=== PATIENT | female | born 1970 | race Caucasian/White ===

== ENCOUNTER 2017-02-05 21:49 | Emergency (ER) | payer MEDICARE, MEDICAID ==
[~2017-02-05] VITALS: Ht 154.9 cm; Wt 87.0 kg
[~2017-02-05 21:49] MED LIST: AMLO2.5T PO; FLUT9.9S NS; GABA-502 PO; LACT1CAP65 PO; OMEP40CA36 PO; OXYC5TAB72 PO; SEVE800T7 PO; SIME180C42 PO; VENL150C98 PO; ZOF8 PO
[2017-02-05 22:27] VITALS: BP 99/73; PULSE 117; RESP 20; O2SAT 98
--- NOTE | 2017-02-05 22:36 | ED.REPORT ---
HPI-Extremity Problem Lower Date of Service Feb 05, 2017 ED Provider: Mark Maldonado MD A 46 year old female with a history of hypertension and renal failure on dialysis presents to the ED complaining of right ankle pain. The pt was leaving her dialysis appointment today when her ankle "gave out" and she fell. She heard a loud pop at that time, and has been unable to walk on the ankle since due to the pain. Nursing Notes Stated Complaint: RIGHT ANKLE TWIST Chief Complaint: Extremity Trauma Nursing Notes Reviewed: Yes Allergies: Coded Allergies: vancomycin (Verified Allergy, Intermediate, itch, 02/05/17) Scheduled Amlodipine (Amlodipine) 2.5 Mg Tablet 2.5 MG PO DAILY Gabapentin (Gabapentin) 300 Mg Capsule 300 MG PO HS Omeprazole (Omeprazole) 40 Mg Capsule.dr 40 MG PO DAILY Sevelamer Carbonate (Renvela) 800 Mg Tablet 2,400 MG PO TIDWM and snacks Venlafaxine ER (Venlafaxine ER) 150 Mg Cap.er.24h 150 MG PO DAILY Scheduled PRN Fluticasone Propionate (Flonase Allergy Relief) 50 Mcg/Actuation [place].susp 9.9 ML NS DAILY PRN PRN prn Ondansetron (Zofran) 8 Mg Tablet 8 MG PO Q8H PRN PRN For Nausea Simethicone (Simethicone) 180 Mg Capsule 180 MG PO QID PRN PRN gas oxyCODONE (oxyCODONE) 5 Mg Tablet 10-15 MG PO Q4H PRN PRN For Pain Miscellaneous Medications Lactobacillus Acidophilus (Probiotic) 1 Each Capsule 1 EACH PO General Time Seen by MD: 22:34 Chief Complaint Ankle injury right Hx Obtained From: Patient Arrived By: Walk-in Onset Occurred: 16 - 30 minutes ago Symptom Duration: Since onset Recent Healthcare: Recent doctor visit, Recent hospitalization Similar Sx Previous: No Past Medical History Past Medical History Notes: Admit for sepsis November 2014 (all cultures negative) Barrel Burner: Dr. Virgen PCP: Renea Wilhelm Past Medical History HTN Polycystic kidney Migraines Hx of cerebral aneurysms bilateral renal failure on dialysis History of obstructive sleep apnea hernia Reports: Hypertension Past Surgical History Tubal ligation Uterine ablation Bladder sling Left AV fistula Bilatereal nephrectomys Reports: Tubal ligation Family History Father, at 52 from cerebral aneurysm Mother is 67 with CAD Smoking History Current Every Day Smoker Social History Alcohol Use: Denies alcohol use Drug Use: Denies drug use Other Social History: Local resident Occupation On disability Ambulatory Status Independent Review of Systems Constitutional: Denies: Fever Musculoskeletal: Reports: Extremity pain, Joint pain, Denies: Back pain, Neck pain Skin: Denies Rash Neurologic: Denies: Headache Complete sys rev & neg: except as marked. Respiratory: Denies: Non-productive cough, Shortness of breath Cardiovascular: Denies: Chest pain GI: Denies: Abdominal pain Physical Exam Initial Vital Signs Vital Signs (First) Date Time Temp Pulse Resp B/P Pulse Ox O2 Delivery O2 Flow Rate FiO2 02/05/17 22:27 37 117 20 99/73 98 Room Air Initial VS: Reviewed Lower Extremity / Pelvis / MS: Atraumatic, Full range of motion Ankle / Foot: No deformity swelling and tenderness of right lateral ankle, inferior to lateral malleolus no obvious deformity or focal bone tenderness good DP and PT pulses neurovascularly intact General/Constitutional: Awake, Alert Respiratory / Chest: Atraumatic, Breath sounds NL, Breath sounds = bilat, No respiratory distress Cardiovascular: Heart rate NL, Regular rhythm, Heart sounds NL, No gallop, No murmurs, No rubs Skin: Atraumatic, Color NL, No rash, Warm, Dry Neurologic: Oriented X3, Speech NL, No motor deficits, No sensory deficits Head / Eyes: Atraumatic, Normocephalic, PERRL, EOMI ENT: Atraumatic, Airway patent, Mucous membranes moist Neck: Atraumatic, Supple, Full range of motion Abdomen: Atraumatic, Soft, Non-tender, No distention Back: Atraumatic, Full range of motion Upper Extremity / MS: Atraumatic, Full range of motion dialysis fistula on left upper arm no redness, swelling, warmth, or other signs of infection Psychiatric: Affect NL, Mood NL Interpretation & Diagnostics X-Ray Interpretation Xray Interpretation: no acute findings X-Ray Ordered: Ankle right Interpretation / Wet Read by: Wet read ED physician Xray Interpretation: no acute findings X-Ray Ordered: Foot right Interpretation / Wet Read by: Wet read ED physician Re-Eval/Medical Decision Med Decision/Clinical Course Patient presents with right ankle pain after actually inverting her right ankle. Examination reveals that the patient is neurovascularly intact in the affected extremity. Tenderness and swelling is present about the distribution of the talofibular ligament. Examination not suggestive of acute fracture. Plain films of the right ankle and foot reviewed by myself demonstrate no convincing fracture. Patient given Tylenol for pain and ice pack applied. Air cast and splint placed. Patient to follow-up with primary care physician. Follow-up and return precautions were reviewed in detail including gentle range of motion exercises and the patient was discharged in good condition. Source of Hx: Old records Re-Evaluation/Progress : Time of Eval: 22:34 Patient Status: Condition improved Re-Evaluation/Progress Note: Pt informed of her radiology results, diagnosis, and the plan for discharge during the initial interview. The pt understands and agrees with the plan. All questions are addressed at this time. Counseled Regarding: Diagnosis, Lab results, Need for follow-up, When/why to return to ED Discharge & Departure Impression: Primary Impression: Right ankle sprain Encounter type: initial encounter Involved ligament of ankle: unspecified ligament Qualified Code: S93.401A - Sprain of unspecified ligament of right ankle, initial encounter Additional Impression: Right ankle pain Chronicity: acute Qualified Code: M25.571 - Pain in right ankle and joints of right foot Disposition: Home Discharge Condition All VS Reviewed: Yes Condition: Stable Patient Instructions: Crutch Instructions (ED) Additional Instructions: Elevate the leg. Use ice and Tylenol as directed for pain management. Use the crutches as instructed and wear the air cast. Call your primary care physician in the morning to arrange follow up within the next week. Return to the emergency department if you develop any new or worsening symptoms including worsening pain, numbness, tingling, or swelling. Referrals: Stacie Wilhelm PA-C (PCP) Scribe Attestation Portions of this note were transcribed by Isabela Locke. I, Dr. Maldonado personally performed the history, physical exam and medical decision-making; I reviewed and confirmed the accuracy of the information in the transcribed note. Signed by: Monica Agarwal, 02/05/2017 and [id number]. copies to: Stacie Wilhelm PA-C, Beck O MD Feb 05, 2017 22:36 ISABELA LOCKE Feb 05, 2017 23:26
[2017-02-06 00:03] VITALS: BP 105/75; PULSE 117; RESP 16; O2SAT 98
--- NOTE | 2017-02-06 09:47 | DRSVH ---
PROCEDURE: X-RAY RIGHT FOOT COMPLETE, MINIMUM THREE VIEWS ([id number]) INDICATIONS: inj TECHNIQUE: 3 views of the foot were acquired. COMPARISON: None. FINDINGS: Bones: No fractures or dislocations. No suspicious bony lesions. Soft tissues: No tibiotalar joint effusion. Achilles tendon appears normal. IMPRESSION: No displaced fracture seen. If there is continued pain, followup exam or additional merissa ging such as MRI or CT could be performed for further assessment. Dictated by: Zhou No Oswaldo Interpreted: Sharon Guerrero MD on 02/06/2017 at 9:46 Transcribed by: ARANZA on 02/06/2017 at 9:47 Approved by: Sharon Guerrero M.D. on 02/06/2017 at 21:12
--- NOTE | 2017-02-06 09:48 | DRSVH ---
PROCEDURE: X-RAY RIGHT ANKLE, MINIMUM THREE VIEWS ([id number]) INDICATIONS: injury TECHNIQUE: 3 views of the ankle were acquired. COMPARISON: None. FINDINGS: Bones: Minimally displaced lateral malleolar fracture present with fracture line extending to the art icular surface. Ankle mortise is normally aligned. No suspicious bony lesions. Soft tissues: No tibiotalar joint effusion. Achilles tendon appears normal. Lateral malleolar soft tissue swelling. IMPRESSION: Lateral malleolar fracture. Dictated by: Zhou No Oswaldo Interpreted: Sharon Guerrero MD on 02/06/2017 at 9:47 Transcribed by: ARANZA on 02/06/2017 at 9:48 Approved by: Sharon Guerrero M.D. on 02/06/2017 at 21:12
[2017-04-09] MEDS ORDERED: ZOF8 PO (10:24)
[2017-04-09] MEDS ORDERED: CINA30TA PO (10:24)
[2017-04-09] MEDS ORDERED: FLUT16SP NS (10:24)
[2017-04-09] MEDS ORDERED: SEVE800T7 PO (10:24)
[2017-04-09] MEDS ORDERED: GABA-502 PO (10:24)
[2017-04-09] MEDS ORDERED: OXYC5TAB72 PO (10:24)
[2017-04-09] MEDS ORDERED: OMEP20CA11 PO (10:24)
[2017-04-09] MEDS ORDERED: BUPR150T8 PO (10:24)
[2017-04-09] MEDS ORDERED: VENL150C98 PO (10:24)
== END 2017-02-06 | disposition home or self-care (01) ==
LOC: SED 21:49
DX: S93.401A Sprain of unspecified ligament of right ankle, initial encounter (principal); X50.1XXA Overexertion from prolonged static or awkward postures, initial encounter; Y93.89 Activity, other specified; Y92.89 Other specified places as the place of occurrence of the external cause; Y99.8 Other external cause status; I10 Essential (primary) hypertension; N19 Unspecified kidney failure; F17.200 Nicotine dependence, unspecified, uncomplicated; Z99.2 Dependence on renal dialysis; Z88.1 Allergy status to other antibiotic agents

== ENCOUNTER 2017-04-15 07:27 | Inpatient (IN) | payer MEDICARE, MEDICAID ==
[2017-04-15] VITALS (16 sets, daily range): BP systolic 91–122; BP diastolic 54–86; PULSE 50–124; RESP 15–29; O2SAT 91–99
[~2017-04-15] VITALS: Ht 154.9 cm; Wt 97.4 kg
[~2017-04-15 07:27] MED LIST changes: -AMLO2.5T PO; +BUPR150T8 PO; +CINA30TA PO; +Dexamethasone 4 mg/mL Inj IVPUSH PRN; +EPHEDrine Sulfate 50 mg/mL Inj IVPUSH PRN; +FLUT16SP NS; -FLUT9.9S NS; +HYDROmorphone 1 mg/mL Inj IVPUSH PRN; -LACT1CAP65 PO; +Labetalol 5 mg/mL 4 mL Inj IV PRN; +Lactated Ringer's 1,000 ML IV SCH; +Lactated Ringer's 500 ML IV PRN; +MetoCLOpramide 5 mg/mL 2 mL Inj IVPUSH PRN; +OMEP20CA11 PO; -OMEP40CA36 PO; +Ondansetron 2 mg/mL 2 mL Inj IVPUSH PRN; +Phenylephrine 10,000 mCg/mL Inj IVPUSH PRN; -SIME180C42 PO; +hydrALAZINE 20 mg/mL Inj IVPUSH PRN
[2017-04-15] MEDS ORDERED: 0.9% Sodium Chloride 500 ML IV ONE (07:42)
[2017-04-15] MEDS: CeFAZolin Inj 2 GM in IV Premix 1 EACH IV ONE ×2 (10:13→10:25)
[2017-04-15] MEDS ORDERED: Heparin 5,000 Unit/mL Inj ONE (10:24)
[2017-04-15] MEDS ORDERED: Heparin 5,000 Unit/mL Inj SUBQ ONE (10:31)
[2017-04-15] MEDS ORDERED: fentaNYL 2 mCg/mL-Bupivicaine 0.125% 100 mL Premix EPIDURAL ONE (10:32)
[2017-04-15] MEDS ORDERED: Atropine 1 mg/mL Inj IVPUSH PRN (11:00)
[2017-04-15] MEDS ORDERED: EPHEDrine Sulfate 50 mg/mL Inj IV PRN (11:00)
[2017-04-15] MEDS ORDERED: Ondansetron 2 mg/mL 2 mL Inj IVPUSH PRN ×2 (11:00→14:50)
[2017-04-15] MEDS ORDERED: MetoCLOpramide 5 mg/mL 2 mL Inj IVPUSH PRN (14:50)
[2017-04-15] MEDS: fentaNYL-PF 50 mCg/mL 2 mL Inj IVPUSH PRN ×4 (14:55→19:36)
[2017-04-15] MEDS ORDERED: Fluticasone 0.05% 15 Spray/2 Gm 16 Gm Nasal Spray NASAL PRN (15:00)
[2017-04-15 15:45] LABS: BASOPHILS % (AUTO) 0.1 % (0-3); EOSINOPHILS % (AUTO) 0.1 % (0-5); MONOCYTES % (AUTO) 1.7 % (4-12); Mean Corpuscular Hemoglobin 33.7 pg (27.0-35.0); NEUTROPHILS % (AUTO) 91.7 % (40-74); Platelet Count 229 bil/L (150-400)
--- NOTE | 2017-04-15 16:06 | OP ---
[address] [address] OPERATIVE REPORT PATIENT: ALESHIA SOLORIO : 1970 MR#: [id number] ADMIT: 04/15/2017 JOB ID: [id number] DATE OF SURGERY: 04/15/2017 PREOPERATIVE DIAGNOSIS(ES): Recurrent symptomatic incarcerated incisional hernia. POSTOPERATIVE DIAGNOSIS(ES): Recurrent symptomatic incarcerated incisional hernia. PROCEDURE: 1. Recurrent Incarcerated Incisonal Herniorrhaphy CPT 93490 2. Right Abdominal wall Muscle Flap CPT 77592 3. Left Abdominal Wall Muscle Flap CPT 37861-91 4. Implantation of Prosthetic Mesh CPT 4956l8 3. Explantation previous mesh. CPT 32061 4. Lysis of adhesions. 5. Excision of redundant skin 100 cm2 SURGEON: Travis Townsend M.D. REMOTE OPERATIONS PRODUCER: Soham Leger M.D./Fabiano Young PA-C. INDICATIONS: The patient is a 46-year-old female whose original diagnosis was polycystic kidney disease. She developed end-stage renal failure and ultimately had a bilateral nephrectomy because of the large painful cyst from her kidneys. From that she developed an incisional hernia. She wanted to try peritoneal dialysis. So last fall, I attempted repair of her incisional hernia without mesh in an attempt to allow her to have peritoneal dialysis. Unfortunately that failed and she required implantation of a biologic mesh because of early postoperative evisceration. She then developed an incisional hernia as expected which is increasingly enlarged and has become symptomatic, and now it is elected to proceed with repair. But, in order to repair her hernia, she would require a component separation with bilateral muscle advancement flaps as well as placement of mesh. FINDINGS: As expected she had intra-abdominal adhesions from her previous midline hernia. She did have multiple hernia defects besides her primary defect which is in the lower abdomen. She had intra-abdominal adhesions that also required lysis. The component separation was done by division of the transversus abdominis bilaterally. The mesh was placed superficial to the posterior rectus fascia and peritoneum and deep to the rectus muscles. It extended inferiorly from the space of Retzius to superiorly to the xiphoid. A 26 x 36 cm mesh was used. DESCRIPTION OF PROCEDURE: At the beginning and end of the operation, the SCOAP checklist was completed. An epidural catheter was placed. She had on pneumatic hose. She received subcutaneous heparin and IV antibiotics. She was induced into a general endotracheal anesthetic. Using ChloraPrep, she was prepped and draped in the usual fashion. Her old midline incision was incised and with sharp dissection, the abdominal cavity was entered. Adhesions were taken down sharply. A large chronic seroma space was entered and this was within the subcutaneous tissue and the old biologic mesh. There was also an inferior component of this hernia which extended below the mesh and contained loops of small intestine. And then also there were several small hernias extending in the superior to the primary hernia but scattered along her old midline incision. These were all taken down and then intra-abdominal adhesions were divided. The abdominal wall dissection was then performed by dissecting the posterior rectus fascia off of the left rectus muscle first. I extended that dissection out preserving the perforators to the linea semilunaris. I then extended the dissection inferiorly below the arcuate line freeing the preperitoneal space and extending that inferiorly on the left into the space of Retzius. An incision was made in the posterior rectus fascia medial to the semilunar line and the left transversus abdominis muscle was identified and then using cautery, it was divided from the costal margin down into the pelvis. Attention was then turned to the right side of the abdominal wall and the exact same maneuver was performed ultimately dividing the transversus abdominis on the right side similar to the left. Again, the space of Retzius was developed starting from above and working inferiorly and then the dissection was carried up to the costal margin and then up on both sides to the xiphoid. Hemostasis within this space was confirmed and then the posterior rectus fascia above the arcuate line and in the peritoneum inferiorly was then closed with running 0 PDS suture. A 26 x 36 piece of polypropylene mesh was then placed into the space and was secured with interrupted 0 PDS sutures placed transfascially with the use of a suture passer. Into this space, two 19-Georgian Donnell-Nice drains were placed through separate stab wounds exiting superiorly and then placed laterally over the mesh. The anterior rectus fascia and linea alba was then closed with running looped Maxon. Redundant skin was then excised and then a 15-Georgian Donnell-Nice drain was placed to evacuate the subcutaneous space. The midline skin incision was closed with running 4-0 Vicryl. The needle passer incisions which were very small were just closed with Steri-Strips. The estimated blood loss was 50 cc. There were no apparent complications. There were no specimens. The final sponge, needle and instrument counts were announced as correct and she was returned to recovery room in stable condition. Critical assistance provided by Soham Leger MD and JJ Valdez
--- NOTE | 2017-04-15 16:08 | PCM.HPANE ---
Patient Data Date of Service: April 15, 2017 Surgeon Admitting Provider: Attending Provider:Travis Townsend MD Primary Care Physician:Alfredito Urias MD Other Provider:Rowena Choudhury Anesthesia Reason for Visit Recurrent Incarcerated Incisional Hernia Ht/WT & BMI Height (Feet): 5 Height (Inches): 1.00 Weight (Kilograms): 90.7 Body Mass Index 37.00 Allergies Coded Allergies: vancomycin (Verified Allergy, Intermediate, itch, 02/05/17) Past Anesthesia History Anesthesia History: Denies:: Abnormal Airway, Anesthesia Reactions (past hx of "over sedation"), Difficult Intubation, Fam Anesthesia Reaction, Fam Malignant Hypertherm, Malignant Hyperthermia Diabetes History Hx Diabetes?: No Current Bedside Blood Glucose: 141 MRSA MRSA: No Medications Hypertension Medication: No Home Meds Incl Beta Salbador: No Reported Medications Ondansetron (Zofran)8 Mg Tablet8 Mg PO Q8H PRN For Nausea 04/09/17 Bupropion ER (Wellbutrin SR)150 Mg Tablet.er150 Mg PO DAILY Ref 0 04/09/17 Venlafaxine ER 150 Mg Cap.er.54p572 Mg PO DAILY Ref 0 04/09/17 Cinacalcet (Sensipar)30 Mg Prgrmp47 Mg PO DAILY Ref 0 04/09/17 Sevelamer Carbonate (Renvela)800 Mg Bhsbrz267 Mg PO TID 90 Days 04/09/17 Omeprazole 20 Mg Capsule.dr20 Mg PO DAILY Ref 0 04/09/17 Gabapentin 300 Mg Avqzegg654 Mg PO DAILY Ref 0 04/09/17 Fluticasone Propionate (Fluticasone Propionate Nasal)16 Gm [place].susp1 [place] NS BID PRN Secretion Control #16 GM Ref 0 04/09/17 Discontinued Reported Medications oxyCODONE 5 Mg Tablet5 Mg PO Q6H PRN For Pain Ref 0 04/09/17 Lactobacillus Acidophilus (Probiotic)1 Each Capsule1 Each PO 10/15/16 Omeprazole 40 Mg Capsule.dr40 Mg PO DAILY Ref 0 10/14/16 Amlodipine 2.5 Mg Tablet2.5 Mg PO DAILY #30 08/12/16 Ondansetron (Zofran)8 Mg Tablet8 Mg PO Q8H PRN For Nausea 07/25/16 Sevelamer Carbonate (Renvela)800 Mg Tablet2,400 Mg PO TIDWM and snacks 90 Days 07/25/16 Gabapentin 300 Mg Kbjoamy451 Mg PO HS Ref 0 07/25/16 Fluticasone Propionate (Flonase Allergy Relief)50 Mcg/Actuation [place].susp9.9 Ml NS DAILY PRN prn 07/25/16 Venlafaxine ER 150 Mg Cap.er.79e209 Mg PO DAILY Ref 0 02/21/16 Discontinued Scripts oxyCODONE 5 Mg Mxvjun94-10 Mg PO Q4H PRN For Pain #30 TABLET Prov:Venus Christopher PA-C 10/24/16 Simethicone 180 Mg Mrlkqgv918 Mg PO QID PRN gas #30 CAPSULE Ref 0 Prov:Venus Christopher PA-C 10/24/16 History History of ENT Problems?: Yes HEENT History: Positive for:: Sinus Problem (seasonal allergies) Denies:: Abnormal Airway Cataracts Difficult Intubation Dysphagia Hearing Problem Denture Type: Full- Upper Partial- Lower Teeth Condition: Within Normal Limits Hx of Heart Problems?: Yes Cardiovascular History: Positive for:: Edema (just from dialysis ) Hypertension Denies:: AICD Atrial Fibrillation Cardiac Surgery Chest Pain Congestive Heart Failure Heart Murmur Irregular Heartbeat Pacemaker Thrombophlebitis Hx of Respiratory Problem?: No Respiratory History: Denies:: Asthma COPD Chest Surgery Dyspnea Emphysema Hemoptysis Pneumonia Tuberculosis Use of C-PAP Machine (CPAP recommended- does not tolerate) Other Resp Pertinent History: hx of hospital admission for SIRS- 07/2016 Hx Neurologic Problems?: Yes Neurological History: Positive for:: Headaches ( in the past) Denies:: Alzheimer's Disease CVA (per emr hx of cerebral aneurysms- assoc with polycystic kidney dx) Dementia Dizziness Parkinson's Disease Seizures Hx of GI Problems?: Yes Hx of Problems?: Yes Genitourinary History: Positive for:: HX of Hemodialysis (Mon/Wed/Fri @ [facility]- brachiocephalic a/v fistula) Urinary Tract Infection Denies:: Kidney Stones HX of Peritoneal Dialysis: No (could not do PD related to hernias) Other Pertinent History: hx of bilateral nephrectomies r/t polycystic kidneys Female Hx: Positive for:: Endometriosis (hx of endometrial ablation) Denies:: Currently (tubal) Pelvic Inflammatory Problems with Breasts? Skin History: Denies:: History Skin Disorders? Pressure Ulcers Hx Musculoskeletal Problems?: Yes Musculoskeletal History: Positive for:: Back Injury (current sciatica flare, hx of lumbar spondylosis) Musculoskeletal Trauma Denies:: Joint Replacement Hx of Psycho/Social Problems?: No (On Kidney transplant list) Psycho Social History: Positive for:: Anxiety (situational) Hx Depression Denies:: Bipolar Disorder Suicide Attempt Hx Surgeries?: Yes (BILAT NEPHRECTOMY,APPY,BLADDER SLING,ENDOMETRIAL ABLATION, BTL,LT A/V FISTUL) Hx Any Other Health Problems?: Yes Other History: Positive for:: Hospitalization Denies:: Cancer Endocrine Disease Thyroid Disease History Blood Transfusions: Denies:: Blood Transfuse Reaction Blood Transfusions Hx Diabetes: NoBedside Blood Glucose: 141 Hx Alcohol Use: NoHx Substance Use: No Smoking Status: Current Every Day Smoker Have You Smoked inLast 12 mo: Yes (quit 07/2016) Stop/Bang S-Snoring: Do You Snore Loudly: Yes T-Tired: feel tired, fatigued: Yes O-Obsered: Observed not breath: Yes P-Blood Pressure: treated: No B- Body Mass Index > 35 kg/m2: Yes A- Age over 50: No N- Neck Large Circumference: No G- Gender Male: No OSORIO Total Score: 4 OSORIO Risk Assessment: High Risk, =/>3 Yes OSORIO Category 2: Yes Risk Assessment Category Category 1A: Patient has history of documented sleep apnea, and HAS NOT received any narcotic, sedative or anesthesia administration during this stay. Category 1B: Patient has history of documented sleep apnea, and HAS received any narcotic , sedative or anesthesia administration during this stay Category 2: Patient has SUSPECTED Obstructive Sleep Apnea, and HAS received any narcotic , sedative or anesthesia administration during this stay. Category 3: Patient has SUSPECTED Obstructive Sleep Apnea and HAS NOT received narcotic, sedative or anesthesia administration during this stay. Category 4: Outpatient in Procedural Areas with known sleep apnea or who screen positive for High Risk via the STOP/BANG questionnaire. Exam Exam Vital Signs Vital Signs Date Time Temp Pulse Resp B/P Pulse Ox O2 Delivery O2 Flow Rate FiO2 04/15/17 15:50 118 24 98/55 96 Nasal Cannula 3 04/15/17 15:45 115 25 103/54 97 Nasal Cannula 3 04/15/17 15:30 36.2 114 24 91/66 98 Nasal Cannula 3 04/15/17 15:22 29 96 04/15/17 15:20 15 112/79 94 Nasal Cannula 3 04/15/17 15:15 117 23 98/71 93 Nasal Cannula 3 04/15/17 15:00 113 24 100/65 93 Nasal Cannula 04/15/17 14:45 124 23 97/71 93 Nasal Cannula 3 04/15/17 14:40 124 24 102/63 93 Nasal Cannula 3 04/15/17 14:35 123 23 103/71 92 Nasal Cannula 3 04/15/17 14:32 37.4 123 25 110/69 91 Nasal Cannula 3 04/15/17 08:11 36.6 108 16 122/86 99 Room Air General Appearance: Alert, Oriented X3, Cooperative, No Acute Distress HEENT/AIRWAY: MP 2 Lungs: Clear to Auscultation, Normal Air Movement Heart: Exam Unremarkable, Regular Rate/Rhythm, No Murmurs/Rubs/Gallops Meds/Labs/Diagnostics Admission Meds Current Medications Cefazolin Sodium/ Dextrose 2 gm/ Premix 50 ml @ 100 mls/hr 01 ONCE IV Last administered on 04/15/17 10:25; Start 04/15/17 at 01:00; Stop 04/15/17 at 01:29 ; Status DC Sodium Chloride (Normal Saline) 500 ml @ ud STK-MED ONCE IV Last administered on 04/15/17 07:42; Start 04/15/17 at 07:42; Stop 04/15/17 at 07:43; Status DC Heparin Sodium (Porcine) (Heparin Inj) 5,000 unit STK-MED ONCE SUBQ Last administered on 04/15/17 10:31; Start 04/15/17 at 10:31; Stop 04/15/17 at 10:42 ; Status DC Bedside Blood Glucose: 141 Labs Test 04/15/17 15:30 White Blood Count 15.8th/mm3 (3.8-10.1) Red Blood Count 3.98mil/mm3 (3.90-5.20) Hemoglobin 13.4g/dL (12.0-15.6) Hematocrit 42.2% (35.0-46.0) Mean Corpuscular Volume 106.0fL (81-100) Mean Corpuscular Hemoglobin 33.7pg (27.0-35.0) Mean Corpuscular Hemoglobin Concent 31.8% (32.0-37.0) Red Cell Distribution Width 17.1% (12.3-15.4) Platelet Count 229bil/L (150-400) Neutrophils (%) (Auto) 91.7% (40-74) Lymphocytes (%) (Auto) 5.9% (14-46) Monocytes (%) (Auto) 1.7% (4-12) Eosinophils (%) (Auto) 0.1% (0-5) Basophils (%) (Auto) 0.1% (0-3) Plan Impression Patient chart reviewed, patient interviewed and anesthestic plan with risks, benefits, and alternatives discussed, and informed consent obtained. NPO per Anesth. Guidelines: Yes ASA Physical Status: ASA2 Mod Systemic Disease Anesthetic Plan: GA Bene/Risks/Altern/Consents: Yes HP Complete Prior to Induction: Yes Alfonso Dobbs MD April 15, 2017 16:07
[2017-04-15] MEDS ORDERED: fentaNYL-PF 50 mCg/mL 2 mL Inj ONE (16:15)
[2017-04-15] MEDS ORDERED: Succinylcholine Chloride 20 mg/mL 5 mL Inj ONE (16:15)
[2017-04-15] MEDS ORDERED: Ketamine 10 mg/mL 20 mL Inj ONE (16:15)
[2017-04-15] MEDS ORDERED: Neostigmine 1 mg/mL 10 mL Inj ONE (16:15)
[2017-04-15] MEDS ORDERED: Rocuronium 10 mg/mL 5 mL Inj ONE (16:15)
[2017-04-15] MEDS ORDERED: Propofol 10,000 mCg/mL 20 mL Inj ONE (16:15)
[2017-04-15] MEDS ORDERED: Phenylephrine/NS-PF 100 mCg/mL 5 mL Syringe IVPUSH ONE (16:15)
[2017-04-15] MEDS ORDERED: Dexamethasone 4 mg/mL Inj ONE (16:15)
[2017-04-15] MEDS ORDERED: Ondansetron 2 mg/mL 2 mL Inj ONE (16:15)
[2017-04-15] MEDS ORDERED: Glycopyrrolate 0.2 MG/ML 1mL Inj ONE (16:15)
[2017-04-15] MEDS: Sodium Chloride LOK Flush 10 mL Syringe IVFLUSH SCH ×2 (16:30→23:48)
[2017-04-15] MEDS: 0.9% Sodium Chloride 1,000 ML IV SCH (16:30)
--- NOTE | 2017-04-15 16:57 | NUR ---
Post op Transferred from PACU via bed at 16:05. Report received from [place]. Alert and oriented, sats upper 90s on 3L nc. Abdominal binder in place. Midline abd pads with minimal sanguineous drainage. 3 R lateral abd and 3 L lateral abd bandaids CDI. 3 abd JOSLYN draining sanguineous fluid. Some numbness in lower extremities, R>L, but movement is intact. Epidural infusing at 7ml/hour continuous rate with PCEA dose of 1mL q 30 minutes. Complains of pain /. Somewhat hypotensive and tachycardic. Will not titrate epidural up r/t BP. On dialysis, no kidneys, does not make urine.
[2017-04-15] MEDS ORDERED: Ondansetron 8 mg ODT Tablet PO PRN (17:00)
--- NOTE | 2017-04-15 21:33 | PROG NOTE ---
[address] [address] PROGRESS NOTE PATIENT: ALESHIA SOLORIO : 1970 MR#: [id number] ADMIT: 04/15/2017 JOB ID: [id number] DATE: 04/15/2017 I was called this evening because the patient's epidural seemed to only be working on one side and the patient was experiencing 6/10 pain on the nonfunctional side. When I went to see the patient, she was sitting up in bed, watching TV. She reported that she had no sensation or pain on her right side from about the T8 level down but could feel everything on the left side. I subsequently pulled the epidural catheter back 1 cm to 9 cm at the skin and bolused it with 5 mL of 0.25% bupivacaine. The patient's vital signs were stable, and I took her blood pressure every 5 minutes for approximately 15 minutes. During that time, her blood pressure ranged from 90 to 98/51 to 61. At the end of 15 minutes, the patient reported that she was feeling much better and the pain on her left side had decreased to approximately 2/10. She also reported that she was having a little less numbness on her right side. Otherwise, the patient appeared to be doing well and was very happy with her pain management.
--- NOTE | 2017-04-15 21:56 | PCM.ANEP1 ---
Post Anesthesia PACU Phase 1 Assessment Vital Signs Vital Signs Date Time Temp Pulse Resp B/P Pulse Ox O2 Delivery O2 Flow Rate FiO2 04/15/17 20:31 37.1 113 29 93/61 95 Room Air 04/15/17 17:12 Supplement Oxygen 04/15/17 16:45 114 94/59 04/15/17 16:05 36.4 50 18 96/64 Nasal Cannula 4.00 96 04/15/17 15:50 118 24 98/55 96 Nasal Cannula 3 04/15/17 15:45 115 25 103/54 97 Nasal Cannula 3 04/15/17 15:30 36.2 114 24 91/66 98 Nasal Cannula 3 04/15/17 15:22 29 96 04/15/17 15:20 15 112/79 94 Nasal Cannula 3 04/15/17 15:15 117 23 98/71 93 Nasal Cannula 3 04/15/17 15:00 113 24 100/65 93 Nasal Cannula 04/15/17 14:45 124 23 97/71 93 Nasal Cannula 3 04/15/17 14:40 124 24 102/63 93 Nasal Cannula 3 04/15/17 14:35 123 23 103/71 92 Nasal Cannula 3 04/15/17 14:32 37.4 123 25 110/69 91 Nasal Cannula 3 Anesthetic Administered: GA, Epidural Level of Alertness: Awake, talking BRAUN's with Equal Strength: No (epidural) Pain: Yes Pain Scale Score: 8 Nausea or Vomiting: No CV Function & Hydration Stable: Yes Airway Device: Endotrachial Tube Lungs: Clear to Auscultation, Normal Air Movement PACU Phase 2 Assessment Patient Instructions Provided: Yes Alfonso Dobbs MD April 15, 2017 21:56
[2017-04-15] MEDS: Acetaminophen IV 1,000 MG in IV Premix 1 EACH IV SCH (22:02)
[2017-04-15] MEDS: fentaNYL 2 mCg/mL-Bupiv 0.125% 100 ML in IV Premix 1 EACH EPIDURAL SCH (22:57)
[2017-04-16] VITALS (7 sets, daily range): BP systolic 88–130; BP diastolic 60–79; PULSE 62–103; RESP 16–18; O2SAT 94–99
--- NOTE | 2017-04-16 01:33 | NUR ---
Pain Pt. c/o 07/03 right sided abd. pain.Dr. Rodas notified of unilateral pain relief and in to see pt.this wallace.After he gave pt. some bupivicane and adjusted epi. cath pt.much more comfortable.LE numb bilat,> on the right.VSS yet hypotensive at times.Van. food and fluids w/o c/o nausea.Abd. soft with BT.Dressing CDI with some drainage noted.JPs compressed with serosangueness
--- NOTE | 2017-04-16 01:47 | NUR ---
Pain cont. from previous prog. JPs with serosanguenous drainage noted.Abd. binder on.Sleeping intermittently and resting comfortably at this time.Will cont. to monitor.
[2017-04-16] MEDS: Acetaminophen IV 1,000 MG in IV Premix 1 EACH IV SCH ×4 (03:35→21:09)
[2017-04-16] MEDS: Pantoprazole 40 mg ER24 Tablet PO SCH (05:58)
[2017-04-16] MEDS: Sodium Chloride LOK Flush 10 mL Syringe IVFLUSH SCH ×3 (08:14→23:11)
[2017-04-16] MEDS: buPROPion SR 150 mg ER12 Tablet PO SCH (08:15)
[2017-04-16] MEDS: Venlafaxine XR 75 mg ER24 Capsule PO SCH (08:16)
--- NOTE | 2017-04-16 09:17 | NUR ---
Social Work-initial assessment: Data:See initial assessment. Pt is a 46 y/o female who was admitted on 04/15/17 for recurrent incarcerated incisional hernia per H&P. Pt's insurance is [employer] and [employer] and PCP is Alfredito Urias MD. EMR Reviewed. FRANNIE met with pt and mother Sujey [phone] at bedside to discuss discharge, SW role explained. Pt is alert and oriented x3. Pt resides at home with her grandfather where she remains independent with ADLs. Pt drives and does not use any DME. Pt has no HH or SNF history. Pt has no penitentiary care insurance or VA benefits. SW discussed DPOA/ advanced directive, pt confirms that she has the information, but has not completed this, SW encouraged pt to complete this paperwork. Pt confirms she will return home with family when medically stable. Pt's mother confirms she will provide transport home at discharge. SW provided phone number and plan on white board in room. No anticipated discharge needs. SW will continue to follow if needs arise. Assessment:Pt who is independent at baseline. Plan:Pt to discharge home when medically stable via POV. No anticipated discharge needs. SW will continue to follow if needs arise. ASAD Villanueva Addendum: 04/16/17 at 0934 by RUFUS MIRZA Amended: Links added.
--- NOTE | 2017-04-16 12:27 | CONS ---
[address] [address] CONSULTATION REPORT PATIENT: ALESHIA SOLORIO : 1970 MR#: [id number] ADMIT: 04/15/2017 JOB ID: [id number] RENAL CONSULTATION: DATE OF SERVICE: 04/16/2017 HISTORY: This patient is a very pleasant, 46-year-old, white female, who has a history of end-stage renal disease. She was admitted to for extensive repair of an abdominal hernia by Dr. Travis Townsend. Renal consultation is being sought for further evaluation and management of her chronic kidney disease. She has a history of end-stage renal disease requiring three days a week dialysis and has been on dialysis for approximately the last 3-1/2 years. The etiology of her renal failure is due to longstanding polycystic kidney disease. She normally dialyzes on Friday, Friday, and Friday and dialyzes for 4 hours. She underwent a bilateral nephrectomy last year for preparation for a renal transplant. Since that time, she has had abdominal hernia and had consulted Dr. Townsend for this. She underwent a repair with mesh implantation yesterday. Postoperatively today she is doing well. However, she does have some normal postoperative pain. Her appetite is good and she denies any headache, chest pain, shortness of breath, cough, wheezing, nausea, vomiting, diarrhea or constipation. Her appetite is good and she is resting comfortably. PAST MEDICAL HISTORY: Significant for end-stage renal disease secondary to autosomal dominant polycystic kidney disease as detailed above. 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 This has been extensively evaluated and followed by the Neurology Department at the [facility]. Otherwise, she denies a history of any prior stroke, seizure, asthma, emphysema, coronary artery disease, congestive heart failure, hepatitis, peptic ulcer disease, thyroid issues, or delayed menses. PAST SURGICAL HISTORY: Significant for bilateral nephrectomy, bladder repair, endometrial ablation, and left arteriovenous fistula. ALLERGIES: VANCOMYCIN. SOCIAL HISTORY: She denies a history of alcohol, tobacco or illicit drugs. She is normally able to provide for her own needs and performs her activities of daily living without significant problems or restriction. FAMILY HISTORY: Remarkable for polycystic kidney disease in two of her children. MEDICATIONS: At time of my evaluation, include gabapentin, metoclopramide, Zofran, Protonix, and Renvela. REVIEW OF SYSTEMS: As detailed above. Otherwise is noncontributory. PHYSICAL EXAMINATION: Revealed a mildly obese, 46-year-old, white female, who was alert and oriented x3, in no distress at time of my evaluation. Her blood pressure was 106/71 with a heart rate of 102. HEENT examination is remarkable for pale sclerae. Neck is supple without adenopathy, thyromegaly or jugular venous distention. Lungs are clear to auscultation. Heart is regular and rhythmical with a soft systolic murmur. A very limited abdominal exam was performed owing to the patient's most recent postoperative history. Extremities did not show any evidence of any clubbing, cyanosis, or edema. Skin turgor is good. There is no evidence of any rashes. LABORATORY EXAMINATION: Yesterday preoperatively her sodium is 139, potassium 5.0, chloride 93, bicarb 23, BUN and creatinine were 33 and 7.93, glucose is 148. Liver function studies were normal. Her white count was 15.8, hemoglobin of 13.4, hematocrit 42.2. MCV was elevated at 106. RDW was also elevated at 17. Her differential was remarkable for 92% neutrophils. IMPRESSION: 1. End-stage renal disease - dialysis dependent. 2. Autosomal dominant polycystic kidney disease. 3. Hypertension with hypertensive heart disease and hypertensive nephrosclerosis. 4. Macrocytosis. RECOMMENDATION: The patient is to be dialyzed today for 4 hours on a 2 potassium bath, 400 blood flow, 600 dialysate flow, no heparin will be given and will try to take 1-2 L as tolerated. I will be following her throughout her hospitalization. Once again, I would like to thank you for allowing me to participate in the care of this most pleasant and interesting patient. I will be following her closely with you.
[2017-04-16] MEDS: fentaNYL 2 mCg/mL-Bupiv 0.125% 100 ML in IV Premix 1 EACH EPIDURAL SCH ×2 (13:47→23:53)
--- NOTE | 2017-04-16 14:27 | NUR ---
pt is in dialysis Addendum: 04/16/17 at 1427 by MEREDITH MOJICA CNA Amended: Links added.
--- NOTE | 2017-04-16 16:18 | NUR ---
Dialysis note 3 hrs 15 mins of HD completed before system clotting and pt did not wish to continue All blood was returned. 2 15 g needles to ALYSSA fistula. QB variable from 350-400. Teo 2000ml net UF removed with extra rinses to system. No Heparin (pt is s/p hernial repair), Citrasate used Pt has an epidural in place with continues infusion and SPOUT TENDER button, as tx continued pain increased and it felt to pt that epidural was completely not working. Surgeon present and felt Fentanyl was dialyzing off. By end of tx pt in 10/10 pain. Pain assessment reported to RN who will give a bolus upon returning to floor and discuss pain management further with surgery. VSS thru tx. See DTR for complete vitals. Sureseals/clamps X10 mins post tx, report given and pt returned to floor stable.
[2017-04-16] MEDS: fentaNYL-PF 50 mCg/mL 2 mL Inj IVPUSH PRN ×6 (16:43→19:46)
[2017-04-16] MEDS: 0.9% Sodium Chloride 1,000 ML IV SCH (16:47)
[2017-04-16] MEDS ORDERED: HYDROmorphone PCA 0.2 mg/mL 30 mL Inj IV PRN (17:35)
[2017-04-16] MEDS ORDERED: Ondansetron 2 mg/mL 2 mL Inj IVPUSH PRN ×2 (17:35→21:55)
[2017-04-16] MEDS ORDERED: MetoCLOpramide 5 mg/mL 2 mL Inj IVPUSH PRN (17:35)
--- NOTE | 2017-04-16 18:46 | NUR ---
Dialysis/Pain Pt. went for dialysis at ~1230 with no c/o pain, CP, or SOB. VS stable. Pt. returned early from dialysis at ~1630 due to increasing pain. Pt. states " As my dialysis was going on i could feel the pain increasing as time went by". Pt. stated her pain level was 9/10 and two IV push of 25MCG (0.5mL) PRN fentanyl was administered for break through pain. Anesthesiologist also stopped by to see Pt. At this time Pt. states her pain level is starting to decrease and is at 6/10.
[2017-04-16] MEDS: HYDROmorphone 0.5 mg/0.5 mL iSecure Syringe IVPUSH PRN (20:24)
--- NOTE | 2017-04-16 20:50 | PROG NOTE ---
[address] [address] PROGRESS NOTE PATIENT: ALESHIA SOLORIO : 1970 MR#: [id number] ADMIT: 04/15/2017 JOB ID: [id number] DATE: 04/16/2017 SUBJECTIVE: The patient is seen postoperative day one following her complex recurrent incisional hernia repair with mesh with component separation. Overall, she is doing really well. She has an epidural in. She says she is comfortable. She has not passed gas, but on the other hand, she has not had any nausea or vomiting and she is taking some solid food. She is about to be seen by Dr. Tacho Ac from Nephrology. PHYSICAL EXAMINATION: She is comfortable, no distress. Temperature 36.5, brachial blood pressure 108/71, pulse 77, respiratory rate 16, O2 sat 99% on 3 L. Abdomen is flat. She has her binder on. Donnell-Nice drains are all serosanguineous. The subcutaneous drain which is drain #1 20 cc for 8 hours. Drain #2 which is right gutter 60 cc. Drain #3 left gutter 25 cc. IMPRESSION: Overall doing well. PLAN: Continue current care. Dialysis as per Dr. Ac.
[2017-04-16] MEDS ORDERED: Atropine 1 mg/mL Inj IVPUSH PRN (21:55)
[2017-04-16] MEDS ORDERED: fentaNYL 2 mCg/mL-Bupiv 0.125% 100 ML in IV Premix 1 EACH EPIDURAL SCH (21:55)
[2017-04-16] MEDS ORDERED: EPHEDrine Sulfate 50 mg/mL Inj IV PRN (21:55)
--- NOTE | 2017-04-16 22:51 | PROG NOTE ---
[address] [address] PROGRESS NOTE PATIENT: ALESHIA SOLORIO : 1970 MR#: [id number] ADMIT: 04/15/2017 JOB ID: [id number] EPIDURAL MANAGEMENT PROGRESS NOTE DATE: 04/16/2017 SUBJECTIVE: I was called to see the patient because she was in severe pain, which was not being managed or controlled by IV narcotics. Patient was seen earlier today by Dr. Dobbs because her previously well-functioning epidural had stopped working after she went to dialysis. He reported to me that he had pulled back the epidural, because she had numb legs but no numbness over her incision site. He re-bolused the epidural catheter, but she never regained adequate pain control. OBJECTIVE: On exam, the patient is expressing severe pain and is tachypneic. Heart rate is in the low 100s. Blood pressure is stable, 120 systolic. On exam, the epidural catheter was only about 4 cm at the skin and loss was listed at 5 cm, so it was unlikely that the catheter was in the epidural space. At this point, I removed the epidural catheter, consented the patient for replacement of the epidural. PROCEDURE: The patient was sitting. I prepped her skin with chlorhexidine, sterile cap and mask and gloves were worn, and procedure was done in sterile fashion. I found loss at level T12-L1 at 5 cm. Space was easily found, catheter threaded easily. Taped at 10 cm. Test dose was negative for heart acceleration or intrathecal catheter placement. I laid the patient down after bolusing her 5 cc 0.25% bupivacaine, waited 15 minutes. Patient reported that her legs were then numb but incision site was still non-covered. I then bolused another 5 cc of 0.25% and waited another 15 minutes. The patient's blood pressure did decrease from 120s systolic to low 100s. She remained asymptomatic and vital signs were stable. She then reported good pain control. On pinprick test, she had loss of sensation to T8. The patient was comfortable and satisfied with pain control. I explained to her, her risks of local anesthetic toxicity are higher than normal because of her dialysis dependence. I explained to her the signs to look out for and her mother who was present. I also discussed this with the nurse. Her pump settings are 7 cc an hour with 2 cc bolus available. Lock out is 15 minutes. Infusion running is bupivacaine 0.125% with 2 mcg/mL fentanyl.
[2017-04-17 00:49] VITALS: RESP 16; O2SAT 95
[2017-04-17 01:05] VITALS: BP 104/68; PULSE 86; RESP 16; O2SAT 100
--- NOTE | 2017-04-17 01:49 | NUR ---
Pain Pt. c/o 9/10 pain at start of shift and med. with IVP fentanyl x2 and IVP dilaudid with no relief.Dr. Roth notified and replaced epi. catheter at 2130.VS monitored closely after boluses adm. and BP remained stable.Epi. gtt unchanged at 7cc/hr.Demand dose increased to5cc/hr.Pt.had good results and states pain level down to 4/5.Sleeping soundly at this time and resting comfortably.Will cont. to monitor.
[2017-04-17 04:29] VITALS: RESP 16; O2SAT 96
[2017-04-17] MEDS: Pantoprazole 40 mg ER24 Tablet PO SCH (05:19)
[2017-04-17 05:50] VITALS: BP 117/75; PULSE 88; RESP 16; O2SAT 97
[2017-04-17] MEDS: Sodium Chloride LOK Flush 10 mL Syringe IVFLUSH SCH ×2 (08:22→15:53)
[2017-04-17] MEDS: Venlafaxine XR 75 mg ER24 Capsule PO SCH (08:50)
[2017-04-17] MEDS: buPROPion SR 150 mg ER12 Tablet PO SCH (08:51)
[2017-04-17] MEDS: fentaNYL 2 mCg/mL-Bupiv 0.125% 100 ML in IV Premix 1 EACH EPIDURAL SCH ×2 (10:26→18:14)
--- NOTE | 2017-04-17 11:22 | PROG NOTE ---
[address] [address] PROGRESS NOTE PATIENT: ALESHIA SOLORIO : 1970 MR#: [id number] ADMIT: 04/15/2017 JOB ID: [id number] DATE: 04/17/2017 SUBJECTIVE: The patient is seen in followup. Her epidural disk became dysfunctional last night and she was in a lot of pain prior to a new one being placed. She is now very comfortable. She denies nausea or vomiting. She has not had a bowel movement or passed flatus. PHYSICAL EXAMINATION: She is smiling, very comfortable, in no distress. Temperature 36.6, brachial blood pressure 117/75, pulse 88, respiratory rate 16, O2 sat on room air 97%. Her incision is healing well. No evidence of infection. Donnell-Nice drainage, subcutaneous drain 20 cc, right gutter 55 cc, left gutter 35 cc, each the last 8 hours. IMPRESSION: Doing well. Now doing much better with her new epidural. PLAN: Ambulate. Check labs tomorrow. Anticipate dialysis tomorrow.
[2017-04-17] MEDS: Heparin 5,000 Unit/mL Inj SUBQ SCH ×2 (11:42→17:00)
[2017-04-17 13:09] VITALS: BP 98/68; PULSE 100; RESP 16; O2SAT 96
--- NOTE | 2017-04-17 13:19 | PCM.PNNEPH ---
Subjective Date of Service April 17, 2017 Subjective Patient continues to improve postoperatively. Her appetite is good and she denies any headache, chest pain, shortness of breath, nausea or vomiting. Exam Vital Signs Vital Sign - Last Date Time Temp Pulse Resp B/P Pulse Ox O2 Delivery O2 Flow Rate FiO2 04/17/17 05:50 36.6 88 16 117/75 97 Room Air 04/16/17 08:13 3.00 04/15/17 16:05 96 Intake and Output 04/16/17 04/16/17 04/17/17 Cumulative From/Thru 15:00 23:00 07:00 04/09/17 10:07 - 04/17/17 06:42 Intake Total 400 ml 600 ml 854 ml 3918 ml Output Total 105 ml 2140 ml 110 ml 2535 ml Balance 295 ml -1540 ml 744 ml 1383 ml Intake Oral 400 ml 600 ml 200 ml 2000 ml IV Total 654 ml 1918 ml Output Urine Total 0 ml 0 ml 0 ml 0 ml Drainage Total 105 ml 140 ml 110 ml 485 ml Ultrafiltrate 2000 ml 2000 ml Estimated Blood Loss 50 ml Exam Neck is supple without adenopathy, thyromegaly, or jugular venous distention. Lungs were clear to auscultation. Heart is regular rhythmical with a soft systolic murmur. Abdomen was grossly normal however a limited abdominal exam was performed due to her recent postoperative course. Extremities show any evidence of any clubbing cyanosis or edema. Lab and Diagnostics Result Diagram: 04/15/17 1530 04/15/17 1530 Plan Impression Impression #1 end-stage renal disease dialysis dependent #217 abdominal polycystic kidney disease #3 bilateral nephrectomy history Recommendations #1 I will increase her Renvela to 3 capsules with each meal and make arrangements for her dialysis in the morning. Tacho Ac DO April 17, 2017 13:19
--- NOTE | 2017-04-17 13:26 | PROG NOTE ---
[address] [address] PROGRESS NOTE PATIENT: ALESHIA SOLORIO : 1970 MR#: [id number] ADMIT: 04/15/2017 JOB ID: [id number] DATE: 04/17/2017 SUBJECTIVE: The patient is a 46-year-old female that is postoperative day two from open ventral hernia repair with Dr. Townsend. She has an epidural catheter that is in place for postoperative analgesia. Dr. Roth, the on-call anesthesiologist last night, replaced her epidural secondary to poor overall pain control and likely epidural catheter spontaneous dislodgment. The patient notes that following this replacement that her pain is must better controlled. She currently rates it at 3/10 at rest and 5/10 with activity. She notes mild bilateral leg numbness but no leg weakness. She has the majority of her pain in the right lower quadrant. She denies nausea or any significant degree of . She is tolerating, although low volume, regular diet. OBJECTIVE: Vital signs are reviewed. She is afebrile, pulse rate 88, blood pressure 117/75, 97% on room air. On exam, she is alert, oriented, and in no distress. She moves in bed easily. Her epidural catheter is approximately 12 cm at the skin. The dressing is intact with no surrounding erythema and minimal serosanguinous discharge. Her bilateral hip flexors are 5/5 strength. LABORATORY DATA: Shows platelet count is 229, that was two days ago. Expecting to have new labs tomorrow per Dr. Townsend's note. Reviewing the MAR demonstrates that her epidural is running at 7 cc per hour. She is getting subcutaneous heparin at 5000 units subcu q.8 h. Per nephrology notes, she is not getting heparin with dialysis. ASSESSMENT: Adequate analgesia on postoperative day two from open ventral hernia repair. I have asked the nurse to increase the basal rate to 10 cc an hour for her epidural. The patient is encouraged to use her patient demand bolus of epidural if she is uncomfortable. She has as needed narcotics ordered should she need those. Anticipate potential changes into oral pain regimen tomorrow pending that she has a smooth night tonight. [facility]OSPITALRamone
--- NOTE | 2017-04-17 14:24 | NUR ---
Epidural/Pain Patient states she had a much better night after epidural was replaced. Able to move feet and legs without any problem, states has sensation present. Rates pain 3/10. Epidural rate was increased to 10ml/hr per anesthesia. Denies any nausea/vomiting. Tolerating renal diet without any problem. BT's present, not passing flatus or BM since surgery. Continue to monitor.
[2017-04-17] MEDS: 0.9% Sodium Chloride 1,000 ML IV SCH (16:57)
[2017-04-17 20:50] VITALS: BP 109/70; PULSE 88; RESP 20; O2SAT 98
[2017-04-18] MEDS: Sodium Chloride LOK Flush 10 mL Syringe IVFLUSH SCH ×4 (00:30→22:49)
[2017-04-18 00:50] VITALS: BP 99/63; PULSE 91; RESP 22; O2SAT 97
[2017-04-18] MEDS: Heparin 5,000 Unit/mL Inj SUBQ SCH ×3 (00:56→16:32)
[2017-04-18] MEDS: fentaNYL 2 mCg/mL-Bupiv 0.125% 100 ML in IV Premix 1 EACH EPIDURAL SCH ×3 (01:58→17:36)
[2017-04-18 04:55] VITALS: BP 108/68; PULSE 92; RESP 18; O2SAT 97
--- NOTE | 2017-04-18 04:57 | NUR ---
Pain/Bowels Pt reports no pain, pain being controlled by epidural. Pt has no numbness/tingling. Pt dangling at bedside and able to stand for weight this AM. Pt reports no BM yet and not passing gas. Paged for bowel meds as none are ordered. Pt tolerating PO diet.
[2017-04-18] MEDS: Pantoprazole 40 mg ER24 Tablet PO SCH (06:11)
[2017-04-18 06:35] LABS: BASOPHILS % (AUTO) 0.3 % (0-3); EOSINOPHILS % (AUTO) 5.6 % (0-5); MONOCYTES % (AUTO) 6.3 % (4-12); Mean Corpuscular Hemoglobin 33.2 pg (27.0-35.0); Mean Corpuscular Volume 105.2 fL (81-100); NEUTROPHILS % (AUTO) 69.5 % (40-74); Platelet Count 188 bil/L (150-400)
[2017-04-18] MEDS ORDERED: Lactulose 20 Gm/30 mL 30 mL Syrup PO SCH (07:55)
--- NOTE | 2017-04-18 08:25 | PROG NOTE ---
[address] [address] PROGRESS NOTE PATIENT: ALESHIA SOLORIO : 1970 MR#: [id number] ADMIT: 04/15/2017 JOB ID: [id number] DATE: 04/18/2017 SUBJECTIVE: The patient is postoperative day three following component separation, recurrent incisional hernia repair with mesh. She is on dialysis, and is scheduled to be dialyzed today. Her pain continues to be well-controlled with the epidural. She denies nausea or vomiting. She has not had a bowel movement. PHYSICAL EXAMINATION: She is alert, in no distress. Temperature 36.6, brachial blood pressure 108, systolic pulse 92, respiratory rate 18, O2 sat room air 97%. Her abdomen is flat. Incision healing well. Donnell-Nice #1 (subcutaneous) 30 cc per 24 hours. Right gutter, 95 cc per 24 hours. Left gutter 75 cc per 24 hours. LABORATORY RESULTS: White count 7.9, hematocrit 28.5, platelet count 188,000. Glucose 84. IMPRESSION: Overall doing well. PLAN: I think the best plan regarding her pain control is to leave her epidural in until tomorrow, and then switch her to orals. Likely, her Donnell-Nice drains will be able to be removed in the next few days. I have ordered lactulose for her constipation.
[2017-04-18] MEDS: buPROPion SR 150 mg ER12 Tablet PO SCH (09:00)
[2017-04-18] MEDS: Venlafaxine XR 75 mg ER24 Capsule PO SCH (09:00)
--- NOTE | 2017-04-18 09:55 | NUR ---
To Dialysis Patient left in bed to go up to dialysis with IV infusing and epidural pump. New epidural medication was hung just prior to being transferred.
[2017-04-18 10:08] VITALS: BP 102/57; PULSE 98
--- NOTE | 2017-04-18 10:35 | PCM.PNNEPH ---
Subjective Date of Service April 18, 2017 Subjective Patient continues to do well postoperatively. Her appetite is good and she denies any headache, chest pain, shortness of breath, nausea or vomiting. Exam Vital Signs Vital Sign - Last Date Time Temp Pulse Resp B/P Pulse Ox O2 Delivery O2 Flow Rate FiO2 04/18/17 04:55 36.6 92 18 108/68 97 Room Air 04/16/17 08:13 3.00 04/15/17 16:05 96 Intake and Output 04/17/17 04/17/17 04/18/17 Cumulative From/Thru 15:00 23:00 07:00 04/09/17 10:07 - 04/18/17 04:56 Intake Total 1164 ml 5082 ml Output Total 90 ml 2625 ml Balance 1074 ml 2457 ml Intake Oral 650 ml 2650 ml IV Total 514 ml 2432 ml Output Urine Total 0 ml Drainage Total 90 ml 575 ml Ultrafiltrate 2000 ml Estimated Blood Loss 50 ml Exam Neck is supple without adenopathy, thyromegaly, or jugular venous distention. Lungs are clear to auscultation. Heart is regular and rhythmical with a soft systolic murmur. Abdomen is soft with diminished bowel sounds and once again due to her recent extensive abdominal surgery a limited abdominal exam was performed. Extremities show any evidence of any clubbing, cyanosis, or edema. skin turgor is good. Lab and Diagnostics Result Diagram: 04/18/17 0555 04/18/17 0555 Plan Impression Impression #1 end-stage renal disease dialysis dependent number to polycystic kidney disease #3 history of bilateral nephrectomy #4 hypertension with hypertensive heart disease and hypertensive nephrosclerosis Recommendation #1 patient be dialyzed today for 4 hours on a max dialyzer, 2 potassium bath, 450 blood flow and 600 dialysate flow, 1000 of heparin and 500 per hour we will attempt to take 2-3 L of fluid off. Tacho Ac DO April 18, 2017 10:35
--- NOTE | 2017-04-18 11:11 | PROG NOTE ---
[address] [address] PROGRESS NOTE PATIENT: ALESHIA SOLORIO : 1970 MR#: [id number] ADMIT: 04/15/2017 JOB ID: [id number] DATE: 04/18/2017 SUBJECTIVE: The patient is a 46-year-old female, postoperative day #3, status post open ventral hernia repair with Dr. Travis Townsend. She had an epidural catheter placed for postoperative analgesia, that necessitated replacement on the evening of April 16, 2017, which was postoperative day one, due to poor pain control. The replaced epidural has been providing her with superior pain control compared to the initial epidural, and she is much more satisfied with her current pain control. She does note that she has slightly better pain control on the left side of her abdomen than the right, and initially more of her symptoms were on the right side, but she can definitely tell that the epidural is functioning compared to her previous postoperative day #1. She has a little left lower extremity subjective weakness when she was up standing, but on examination, it is unremarkable. She has no nausea. She is tolerating a full diet. OBJECTIVE: Vital signs: Blood pressure 108/68, heart rate 92, respirations 16, temperature 36.6, O2 sat 97% on room air. The patient is sleeping upon entering the room, appears comfortable. Lower extremity strength seems intact, though the patient does note some subjective weakness in her left extremity. She is satisfied with her pain control and appears comfortable. Back shows epidural catheter covered with Tegaderm dressing is intact. Catheter at 12 cm. LABORATORY DATA: Last platelet count on April 18, 2017, of 188, white count of 7.9, and hematocrit 28.5. Chemistry labs show creatinine 9.01. Of note, the patient is on dialysis. Her potassium is also 6.3 today, and she is scheduled for dialysis for this. MEDICATIONS: The patient is currently on: 1. Heparin 5000 units subcu q.8 hours. Last dose at 1 o'clock this morning. 2. Additionally, she has p.r.n. hydromorphone ordered, which she has not used since April 16. 3. Her epidural is standard solution, running at 10 mL/hour with a 5 mL/hour bolus, and that is bupivacaine 0.125% plus 2 mcg/mL of fentanyl. ASSESSMENT: The patient is a 46-year-old female, postoperative day #3, status post open ventral hernia repair by Dr. Travis Townsend. She had to, unfortunately, have her epidural catheter replaced on postoperative day one, due to poor function, but is now achieving vastly superior pain control compared to her initial postoperative day. Epidural catheter is intact, running well. The patient is satisfied with her pain control, although she does note that it is a little better on the left side than the right side. PLAN: Per Dr. Townsend's note, he requested the epidural remain in place until tomorrow, April 19, 2017, as she still has drains in place. He is anticipating switching her to oral pain medications tomorrow, which will likely go smoothly as she is tolerating a diet at this time.
--- NOTE | 2017-04-18 12:43 | NUR ---
NUTRITION ASSESSMENT: ASSESS: 46YO F POD 3 s/p incisional hernia repair with mesh. Pt tolerating diet, no n/v. Undergoing dialysis. PMHX: Polycystic kidney disease-resulting in ESRD with bilateral nephrectomy on dialysis, HTN DIET: Renal. PO 50-100%. Good LABS: Na 137, K+6.3, Cr 9.01, Alb 3.7 MEDS: Reviewed. Lactulose GI: Constipation WEIGHT: 93.6kg BMI: 39.0 EST.NEEDS: DIALYSIS/OBESITY (22-25kcal/kg;1.2-2.0g/kg IBW pro) Kcal: 6352-0316 Pro: 70-95g NUTRITION DIAGNOSIS: (1) Increased energy/protein needs related to increased demand for nutrients/dialysis/SCOAP protocol as evidenced by estimated needs of 22-25kcal/kg;1.2-2.0g/kg IBW pro. INTERVENTION: (1) Renal supplement added to meal trays. MONITOR/EVALUATE: PO intake, lab values, diet tolerance. F/U per moderate risk.
--- NOTE | 2017-04-18 14:20 | NUR ---
Dialysis note: 4 hrs tx 3000 ml net UF Left upper arm fistula, accessed w/ no problems Pls see DTR for VS details, low BP during tx but remained asymptomatic Qb 200-500, with high venous pressure alarms toward the end of tx Heparin given O2 @ 2L via NC on during tx Tolerated tx, slept at intervals, cont on Fentanyl epidural Fistula needle sites clotted w/in 10 min Stable condition at end of tx Report given to Taryn CARUSO
--- NOTE | 2017-04-18 14:23 | NUR ---
Pt transfer: Pt completed treatment and can return to [facility]. Pt tolerated treatment well. Report given to Suraj Elise RN.
[2017-04-18 14:45] VITALS: BP 84/52; PULSE 95; RESP 16; O2SAT 98
[2017-04-18] MEDS: 0.9% Sodium Chloride 1,000 ML IV SCH (14:48)
--- NOTE | 2017-04-18 15:06 | NUR ---
Return from Dialysis Patient returned from dialysis on hospital bed. Epidural in place and working well to control patient's pain. States has feeling in bilateral LE, slightly more numbness in LLE than RLE per patent. Pedal pulses present. BP low @ 84/52, 3 L of fluid removed per report. Midline abdominal incision is well approximated with steri strips, All 6 lap sites are well approximated as well with steri strips and bandaid present. [address] to upper abdomen with serous output. Continue to monitor patient.
[2017-04-18 20:19] VITALS: BP 100/66; PULSE 98; RESP 20; O2SAT 98
[2017-04-19] MEDS: Heparin 5,000 Unit/mL Inj SUBQ SCH ×4 (00:11→23:58)
[2017-04-19] MEDS: fentaNYL 2 mCg/mL-Bupiv 0.125% 100 ML in IV Premix 1 EACH EPIDURAL SCH (02:24)
[2017-04-19 04:08] VITALS: BP 100/64; PULSE 94; RESP 20; O2SAT 100
--- NOTE | 2017-04-19 04:14 | NUR ---
EPIDURAL At 0400, pt reported feeling numbness in raul. LE with floppy movements, but is having little pain relief in her abdomen, rating at 6-7/10. Per orders, unable to give any other narcotics when epidural is in place. Plan for today is to remove epidural and switch to oral pain medications.
[2017-04-19] MEDS: Pantoprazole 40 mg ER24 Tablet PO SCH (04:33)
[2017-04-19] MEDS: Sodium Chloride LOK Flush 10 mL Syringe IVFLUSH SCH ×2 (08:30→16:30)
--- NOTE | 2017-04-19 09:44 | PROG NOTE ---
[address] [address] PROGRESS NOTE PATIENT: ALESHIA SOLORIO : 1970 MR#: [id number] ADMIT: 04/15/2017 JOB ID: [id number] DATE: 04/19/2017 SUBJECTIVE: The patient is seen postoperative day four from her repair of recurrent ventral incisional hernia using bilateral transversus abdominis release. Overall, the patient is doing well. She is tolerating diet. She is having good pain control with the epidural without nausea or vomiting. OBJECTIVE: She has remained afebrile and hemodynamically normal. This morning, she is alert and oriented and comfortable. Her abdomen is inspected and soft, not significantly tender. Her incision is clean, dry and intact. Her JOSLYN drains remain in place with serous output. Over the last 24 hours, her JOSLYN drain has put out 4385 and 45 cc, additional 2030 and 10 overnight. JOSLYN drain one is the subcu drain. This drain was removed. ASSESSMENT AND PLAN: This is a 46-year-old female, postoperative day four from a ventral incisional hernia repair with a bilateral transversus abdominis release. I have asked the nurse to stop the epidural and get onto oral pain medications. If she does okay with this, hopefully the epidural can be pulled later today. I anticipate she will probably go home tomorrow, but I told the patient if she really is feeling very well and would like to go home later today, that may be possible. JENNIFER
[2017-04-19 10:38] VITALS: BP 109/75; PULSE 98; RESP 21; O2SAT 99
--- NOTE | 2017-04-19 11:04 | PCM.PNNEPH ---
Subjective Date of Service April 19, 2017 Subjective Patient continues to do well. She denies any headache, chest pain, shortness of breath, nausea or vomiting. This soon as her oral analgesics are adequate she can be discharged from my point of view. Exam Vital Signs Vital Sign - Last Date Time Temp Pulse Resp B/P Pulse Ox O2 Delivery O2 Flow Rate FiO2 04/19/17 10:38 36.8 98 21 109/75 99 Room Air 04/16/17 08:13 3.00 04/15/17 16:05 96 Intake and Output 04/18/17 04/18/17 04/19/17 Cumulative From/Thru 15:00 23:00 07:00 04/09/17 10:07 - 04/19/17 06:29 Intake Total 880 ml 992 ml 506 ml 7460 ml Output Total 3113 ml 60 ml 5798 ml Balance -2233 ml 932 ml 506 ml 1662 ml Intake Oral 400 ml 536 ml 3586 ml IV Total 480 ml 456 ml 506 ml 3874 ml Output Urine Total 0 ml 0 ml 0 ml Drainage Total 113 ml 60 ml 748 ml Ultrafiltrate 3000 ml 5000 ml Estimated Blood Loss 50 ml # Bowel Movements 0 0 Lab and Diagnostics Result Diagram: 04/18/17 0555 04/18/17 0555 Plan Impression Impression #1 end-stage renal disease dialysis dependent 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 Tacho Ac DO April 19, 2017 11:04
[2017-04-19] MEDS: Venlafaxine XR 75 mg ER24 Capsule PO SCH (11:21)
[2017-04-19] MEDS: buPROPion SR 150 mg ER12 Tablet PO SCH (11:22)
[2017-04-19 13:50] VITALS: BP 122/79; PULSE 93; RESP 21; O2SAT 100
--- NOTE | 2017-04-19 19:34 | NUR ---
Pain Patient had some pain to the abdomen this shift, improved with increased dose of ordered pain medication. Epidural DC'd per provider. Patient denies nausea. Care is ongoing.
[2017-04-19 20:30] VITALS: BP 109/68; PULSE 74; RESP 22; O2SAT 99
--- NOTE | 2017-04-19 21:15 | NUR ---
Care transfer Report given and care transferred to Ann-Marie Simpson RN.
[2017-04-19] MEDS: HYDROmorphone 0.5 mg/0.5 mL iSecure Syringe IVPUSH PRN (23:10)
[2017-04-20] MEDS: Sodium Chloride LOK Flush 10 mL Syringe IVFLUSH SCH ×3 (00:30→16:30)
[2017-04-20] MEDS: HYDROmorphone 0.5 mg/0.5 mL iSecure Syringe IVPUSH PRN ×4 (01:53→20:25)
--- NOTE | 2017-04-20 01:59 | NUR ---
IV/PAIN: Pt's IV infiltrated, puffy and leaking, IV line removed intact, placed a new IV on inner aspect of right wrist with a 25g, Angiocath. Pt. c/o increased incisional pain. Was given 15 mg of PO Roxicodone by RN but 2 hr later pain was 9/10 pt. very uncomfortable. Given 0.5 mg of IV Dilaudid brought the pain down to 7/10, by 2 am pt. was crying in pain sitting on the edge of the bed and rated her pain at 11/10, she has been awake most of the night c/o pain. Given 15g of po Roxicodone and 0.5 mg of IV Dilaudid, pt. stated that the Roxicodone is not helping to control her pain. Will cont. to monitor pain.
[2017-04-20 05:23] VITALS: BP 99/67; PULSE 86; RESP 18; O2SAT 99
[2017-04-20] MEDS: Pantoprazole 40 mg ER24 Tablet PO SCH (06:22)
[2017-04-20] MEDS: Venlafaxine XR 75 mg ER24 Capsule PO SCH (08:50)
[2017-04-20] MEDS: buPROPion SR 150 mg ER12 Tablet PO SCH (08:50)
[2017-04-20] MEDS: Heparin 5,000 Unit/mL Inj SUBQ SCH ×2 (08:52→17:27)
--- NOTE | 2017-04-20 09:35 | PROG NOTE ---
[address] [address] PROGRESS NOTE PATIENT: ALESHIA SOLORIO : 1970 MR#: [id number] ADMIT: 04/15/2017 JOB ID: [id number] DATE: 04/20/2017 SUBJECTIVE: The patient is seen in followup for her recent ventral incisional hernia repair. Yesterday, the patient was transitioned to oral pain medications. She tells me she had a lot of uncontrolled pain overnight, but is feeling a little bit better this morning. OBJECTIVE: She has remained afebrile. Hemodynamically normal. This morning she is alert and oriented. She appears comfortable. Her incision inspected and clean, dry, and intact. Her remaining 2 JOSLYN drains had some serous output. Over the last 24 hours the JOSLYN drain tube put out 60 and JOSLYN drain put out 40 with an additional 25 and 10 overnight. ASSESSMENT AND PLAN: This is a 46-year-old female, status post a repair of a ventral recurrent incisional hernia using a bilateral transversus abdominis release on Friday. Overall I think the patient is doing well. She is anxious about going home today with this poorly controlled pain. I am going to increase her oxycodone, and we are hoping for discharge potentially as early as tomorrow. I removed her JOSLYN drain #3, so she has a single JOSLYN remaining in place.
--- NOTE | 2017-04-20 10:58 | PCM.DISURG ---
Surgical Discharge Instruction Date of Service April 20, 2017 Dates of Hospitalization Date of Hospital Admission April 15, 2017 at 16:14 Providers Admitting Physician: Travis Townsend MD Primary Care Physician: Alfredito Urias MD Attending Physician: Travis Townsend MD Discharge Diagnosis Discharge Diagnosis Repair of recurrent ventral incisional hernia Diet Discharge Diet: No restrictions Activity Discharge Activity-General: Be up and about, Balance rest and activity, No lifting >10 pounds for 4-6 weeks Dressing and Incisional Care Dressing Care: Allow Steri Stripes to fall off, Other (Wear abdominal binder when getting up and ambulating) Hygiene: May shower, NO bathtub, hot tub or whirlpool Additional Instructions Discharge Instructions Follow up with Dr Townsend in 2-3 weeks Follow Up Plan Call your provider for: Fever, Chills, Increasing abdominal pain, Nausea, Vomiting, Wound redness Soham Leger MD April 20, 2017 10:58
--- NOTE | 2017-04-20 12:15 | NUR ---
CAITLYN signed by
--- NOTE | 2017-04-20 12:20 | NUR ---
Social Work: Readiness for Discharge D: EMR reviewed. Pt is on krissy 5 of hospitalization. SW met with pt and mother at bedside to confirm discharge plan. SW asked if pt has any questions. Pt declines any discharge needs at this time. Pt to transport home with mother via POV when medically stable. SW does not anticipate any discharge needs at this time but will continue to follow if needs arise. A: Pt who is independent at baseline. Pt who received dialysis M/W/F. P: Pt to transport home with mother via POV when medically stable. SW does not anticipate any discharge needs at this time but will continue to follow if needs arise. ASAD Anthony
[2017-04-20 16:10] VITALS: BP 98/64; PULSE 85; RESP 17; O2SAT 97
--- NOTE | 2017-04-20 18:23 | NUR ---
Pain Pt reports pain 8/10 and would like to be 4/10. Medicated with 20mg po roxicodone Q6. pt states this wore off in [address] Leger paged and orders to change pain meds to 10-15mg Q4 hours PRN. Pt showered today and ambulated with hallway. Was able to sleep off and on throughout the day. Pt took a decent 2 hour uninterrupted nap this afternoon. Pt states she is feeling better. Care conts
[2017-04-20 19:53] VITALS: BP 125/78; PULSE 87; RESP 18; O2SAT 96
[2017-04-21] VITALS (8 sets, daily range): BP systolic 71–113; BP diastolic 49–68; PULSE 78–94; RESP 16–20; O2SAT 94–97
[2017-04-21] MEDS: Heparin 5,000 Unit/mL Inj SUBQ SCH ×3 (00:39→16:56)
[2017-04-21] MEDS: Sodium Chloride LOK Flush 10 mL Syringe IVFLUSH SCH ×3 (00:39→16:59)
[2017-04-21] MEDS: HYDROmorphone 0.5 mg/0.5 mL iSecure Syringe IVPUSH PRN ×5 (03:05→22:24)
[2017-04-21] MEDS: Pantoprazole 40 mg ER24 Tablet PO SCH (06:31)
[2017-04-21] MEDS: buPROPion SR 150 mg ER12 Tablet PO SCH (07:50)
[2017-04-21] MEDS: Venlafaxine XR 75 mg ER24 Capsule PO SCH (07:50)
--- NOTE | 2017-04-21 09:27 | NUR ---
Transfer for dialysis Patient transported by hospital bed to room 244-1 Report received from Keily Rainey RN. car shakeout operator at bedside. Addendum: 04/21/17 at 1358 by EZRA DUMONT RN Transported back to [place] [address] by primary care RN and JENNI. Report given by psychological operations specialist.
--- NOTE | 2017-04-21 10:36 | PROG NOTE ---
[address] [address] PROGRESS NOTE PATIENT: ALESHIA SOLORIO : 1970 MR#: [id number] ADMIT: 04/15/2017 JOB ID: [id number] DATE: 04/21/2017 SUBJECTIVE: The patient is seen in followup for her repair of recurrent ventral incisional hernia using the bilateral transverse abdominis release. The patient was seen over on the dialysis unit. She tells me she has been having inadequate pain control over the last 24 hours. I did decrease the time interval between oxycodone doses yesterday, but appears that it has been inadequate. She is having pain predominantly at the right lower quadrant transfascial suture site. Otherwise she is doing well. OBJECTIVE: She has remained afebrile. Hemodynamically normal. This morning, she is a little bit sleepy but otherwise appears comfortable. Her incisions are clean, dry, and intact. Her remaining JOSLYN drain has some scant serous output. The remaining JOSLYN drain put out 50 cc yesterday and additional 30 overnight. ASSESSMENT AND PLAN: This is a 46-year-old female almost a week out from a repair of her recurrent ventral incisional hernia using a transversus abdominis release. Overall the patient is doing quite well. Having some pain issues, but I think those can be addressed with increase in oxycodone dose. She also has not had a bowel movement in many days. I am going to add some MiraLAX. I think there is a good chance she will be able to go home tomorrow if this increased oxycodone dose is sufficient. We will leave the JOSLYN drain for now and that can come out tomorrow prior to discharge.
--- NOTE | 2017-04-21 11:00 | PCM.PNNEPH ---
Subjective Date of Service April 21, 2017 Subjective Patient is still having some issues with pain control but is slowly improving. Her main complaints this morning is some right lower quadrant pain. Otherwise she is tolerating her diet and denies any chest pain or shortness of breath. She does have some drop in her blood pressure due to pain medications. Exam Vital Signs Vital Sign - Last Date Time Temp Pulse Resp B/P Pulse Ox O2 Delivery O2 Flow Rate FiO2 04/21/17 04:51 36.8 85 16 113/68 97 Room Air 04/16/17 08:13 3.00 04/15/17 16:05 96 Intake and Output 04/20/17 04/20/17 04/21/17 Cumulative From/Thru 15:00 23:00 07:00 04/09/17 10:07 - 04/21/17 05:35 Intake Total 1100 ml 533 ml 30616 ml Output Total 40 ml 30 ml 6023 ml Balance 1060 ml 503 ml 5256 ml Intake Oral 1100 ml 533 ml 7405 ml IV Total 3874 ml Output Urine Total 0 ml 0 ml 0 ml Drainage Total 40 ml 30 ml 973 ml Ultrafiltrate 5000 ml Estimated Blood Loss 50 ml # Bowel Movements 0 0 0 Exam Lungs are clear to auscultation. Heart is regular with a soft systolic murmur. Once again a limited abdominal exam was performed. Extremities showed some mild generalized edema. Lab and Diagnostics Result Diagram: 04/18/1755 04/18/17 0555 Plan Impression Impression #1 end-stage renal disease dialysis dependent #2 on Nanci, polycystic kidney disease #3 status post bilateral nephrectomy for postoperative from mesh implantation and repair of abdominal hernia. Recommendations #1 patient is to dialyze today for 4 hours on a max dialyzer, 3 potassium bath, 1000 of heparin 500 now and try to take 1-2 L of fluid off pending her blood pressure. Most likely she will need an extra ultrafiltration treatment tomorrow. Tacho Ac DO April 21, 2017 11:00
[2017-04-21 13:32] LABS: Mean Corpuscular Hemoglobin 33.8 pg (27.0-35.0); Mean Corpuscular Volume 105.1 fL (81-100)
--- NOTE | 2017-04-21 13:50 | NUR ---
Dialysis note: 4 hr tx, net UF 1000. Left UA fistula; 2 - 15g needles. Off time for maint. heparin 30 min r/t clotting at the end of last tx. Pt c/o pain, 07/03 treated by primary RN Marcel, oxycodone, dilaudid, tylenol. Hypotensive intermittently ~ 80/50 HR 93, and UF turned off at times. Pt rested or slept intermittently during tx. Site clamped x 15 min and secured wit5h SS, gauze and tape. Pt returned to floor stable. Please see DTR for complete record of VS and UF removal.
[2017-04-21] MEDS: Polyethylene Glycol (PEG) 17 Gm Powder PO SCH (14:18)
--- NOTE | 2017-04-21 18:24 | NUR ---
Pain, Blood Pressure, Bowel Movement Patient continues to have pain to the abdomen this shift, with varied response to ordered pain medications. Patient blood pressures low upon return from dialysis, MD aware. Patient reports no bowel movement for many days, new orders received for stool softener. Care is ongoing.
[2017-04-22] MEDS: Heparin 5,000 Unit/mL Inj SUBQ SCH ×2 (01:09→08:13)
[2017-04-22] MEDS: Sodium Chloride LOK Flush 10 mL Syringe IVFLUSH SCH (01:10)
--- NOTE | 2017-04-22 03:24 | NUR ---
pain pt has had trouble with pain control this shift. she received 20mg of PO oxycodone prior to the start of assembler 1st shift but was still reporting pain in her R side 7/10 in intensity. she was given 0.5mg of IV dilaudid which helped for a short time but she still rated her pain 7/10. 4 hours from her last dose pt again was given 20mg of PO oxycodone but only 30 minutes later she was moaning in pain saying she was still a 7/10. MD called to clarify dilaudid order and he said she could have 0.5mg of IV dilaudid Q2Hrs for breakthrough pain. nurse has alternated IV dilaudid with oxycodone with varying degrees of effectiveness. pt still reports pain unchanged at 7/10 but has been able to sleep and walk around in room unassisted. BP has been stable. will continue to monitor.
[2017-04-22 05:00] VITALS: BP 94/57; PULSE 86; RESP 17; O2SAT 99
[2017-04-22] MEDS: Pantoprazole 40 mg ER24 Tablet PO SCH (05:49)
[2017-04-22] MEDS: HYDROmorphone 0.5 mg/0.5 mL iSecure Syringe IVPUSH PRN ×2 (05:55→08:15)
[2017-04-22] MEDS: Polyethylene Glycol (PEG) 17 Gm Powder PO SCH (08:08)
[2017-04-22] MEDS: Venlafaxine XR 75 mg ER24 Capsule PO SCH (08:08)
[2017-04-22] MEDS: buPROPion SR 150 mg ER12 Tablet PO SCH (08:10)
--- NOTE | 2017-04-22 08:18 | PCM.DISURG ---
Surgical Discharge Instruction Date of Service April 22, 2017 Dates of Hospitalization Date of Hospital Admission April 15, 2017 at 16:14 Providers Admitting Physician: Travis Townsend MD Primary Care Physician: Alfredito Urias MD Attending Physician: Travis Townsend MD Discharge Diagnosis Discharge Diagnosis Recurrent symptomatic incisional hernia, status post recurrent symptomatic incisional hernia repair with abdominal wall component separation with mesh Post Operative diagnosis same Diet Discharge Diet: No restrictions Activity Discharge Activity-General: Be up and about, Balance rest and activity, No lifting >10 pounds for 4-6 weeks, No driving while taking narcotic Dressing and Incisional Care Dressing Care: Other (wear binder, keep incision clean and dry, losse bandage over drain site as needed) Hygiene: May shower, DO NOT soak incision under water, NO bathtub, hot tub or whirlpool Follow Up Plan Follow Up Plan Call [phone] for a follow-up appointment with Dr. Oly Townsend or Geetha Foss PA-C in 2-3 weeks Follow-up appointment: Weeks (2-3) Call your provider for: Fever, Chills, Shortness of breath, Increasing abdominal pain, Nausea, Vomiting, Wound redness, Increasing wound pain, Discharge @ incision, pus discharge Geetha Foss PAC April 22, 2017 08:17
[2017-04-22] MEDS ORDERED: OXYC5TAB72 PO (08:20)
[2017-04-22] MEDS ORDERED: POLY17PO6 PO (08:20)
--- NOTE | 2017-04-22 08:21 | PCM.DISURG ---
Surgical Discharge Instruction Date of Service April 22, 2017 Dates of Hospitalization Date of Hospital Admission April 15, 2017 at 16:14 Providers Admitting Physician: Travis Townsend MD Primary Care Physician: Alfredito Urias MD Attending Physician: Travis Townsend MD Discharge Diagnosis Post Operative diagnosis same Activity Discharge Activity-General: Be up and about, Balance rest and activity, No lifting >10 pounds for 4-6 weeks, No driving while taking narcotic Additional Instructions Discharge Instructions Try alternating ibuprofen with oxycodone for pain control and use oxycodone for more severe pain Follow Up Plan Follow Up Plan Call [phone] for a follow-up appointment with Dr. Oly Townsend or Geetha Foss PA-C in 2-3 weeks Follow-up appointment: Weeks (2-3) Call your provider for: Fever, Chills, Shortness of breath, Increasing abdominal pain, Nausea, Vomiting, Wound redness, Increasing wound pain, Discharge @ incision, pus discharge Geetha Foss PAC April 22, 2017 08:21
--- NOTE | 2017-04-22 08:31 | PCM.PNSURG ---
Subjective Date of Service: April 22, 2017 Date of Service: April 22, 2017 Visit Information: Reason for Visit Recurrent Incarcerated Incisional Hernia Surgery/Surgery Date Post-Op Day # Date of Admission: April 15, 2017 at 16:14 Hospital Day # Subjective: Patient is seen in surgical follow-up, she is now 1 week status post repair of recurrent symptomatic incisional hernia with abdominal wall component separation with mesh. She is up and about, she has showered and her last JOSLYN drain was removed by Dr. Townsend this AM. Her pain control continues to be somewhat of an issue but she does report that after her drain was removed this AM that her pain has improved and hopes that it continues to do so. She is due to have an extra hemodialysis session per Dr. Ac's not this AM and she should be ready to go home after that. She is tolerating an ADA diet and passing flatus but no stool/BM yet. She reports that Senna works well for her at home and she plans to resume her usual Senna at home. She is ambulating in the room and halls. She feels comfortable with going home, she reports that she has supportive family to help with her care at home. She was seen earlier today by Dr. Townsend as well. Pain Management: PO, IV Push (PRN breakthrough pain) Postop Activity: Ambulating Independently Objective Objective pleasant obese female sitting in bedside chair Vital Sign- Last 8 Hours Date Time Temp Pulse Resp B/P Pulse Ox O2 Delivery O2 Flow Rate FiO2 04/22/17 05:00 36.6 86 17 94/57 99 Room Air Intake and Output- Last 8 Hour 04/22/17 Cumulative From/Thru 07:00 04/09/17 10:07 - 04/22/17 05:55 Intake Total 520 ml 03318 ml Output Total 30 ml 7083 ml Balance 490 ml 5116 ml Intake Oral 520 ml 8325 ml IV Total 3874 ml Output Urine Total 0 ml 0 ml Drainage Total 30 ml 1033 ml Ultrafiltrate 6000 ml Estimated Blood Loss 50 ml # Bowel Movements 0 0 General: Alert, Oriented X3, Cooperative, No Acute Distress Lungs: Clear to Auscultation, Normal Air Movement Heart: Regular Rate/Rhythm Abdomen: Soft, Appropriately tender, Protuberant, Normoactive bowel tones, Other SURGICAL WOUND : Wound General Appearence: Intact, Well Approximated, Incision Healing, No Erythema, No Discharge, No Inflammatory Changes, Other (binder in place) Wound Drainage Type: Other (JOSLYN's all removed and sites are healing) Extremities: Warm Neuro: Grossly Neurologically Intact, Normal Speech Catheters: None Result Diagram: 04/21/17 1317 04/18/17 0555 Assessment & Plan Impression POD#7 status post repair of recurrent symptomatic incisional hernia with abdominal wall component separation with mesh, doing well and stable and ready for discharge to home. Follow-up with Dr. Townsend or myself/[facility] in 2-[address] Townsend and myself both reviewed discharge instructions with patient in detail and answered patient's questions. Hopefully, her pain will decrease after removal of her last JOSLYN this AM; some of her pain may be secondary to a transfascial suture due to its pin point location in the RLQ. -HD this AM and then D/C home -Rx's written -Pt to resume Senna at home to help with bowel movements -Activity is encouraged with binder Problems: (1) Hemodialysis patient Status: Acute ICD Code: Z99.2 (2) Hypertension Status: Chronic ICD Code: I10 (3) Chronic pain syndrome Status: Chronic ICD Code: G89.4 (4) Polycystic kidney disease Status: Chronic ICD Code: Q61.3 (5) ESRD (end stage renal disease) on dialysis Status: Chronic ICD Code: N18.6 (6) Recurrent ventral incisional hernia Status: Resolved ICD Code: K43.2 Pain Management: Oxycodone PO and dilaudid IV for breakthrough Geetha Foss PAC April 22, 2017 08:31
--- NOTE | 2017-04-22 09:53 | PCM.DC.SUR ---
Discharge Summary Date of Service: April 22, 2017 Date of Hospital Admission: April 15, 2017 at 16:14 Date of Operation(s): 04/15/2017 Date of Discharge: 04/22/2017 Problems: (1) Hypertension Status: Chronic ICD Code: I10 (2) Chronic pain syndrome Status: Chronic ICD Code: G89.4 (3) Polycystic kidney disease Status: Chronic ICD Code: Q61.3 (4) ESRD (end stage renal disease) on dialysis Status: Chronic ICD Code: N18.6 (5) Recurrent ventral incisional hernia Status: Resolved ICD Code: K43.2 (6) Hemodialysis patient Status: Acute ICD Code: Z99.2 Operation 1. Repair recurrent incisional hernia with abdominal wall component separation with mesh. 2. Bilateral abdominal wall muscle flaps. 3. Explantation previous mesh. 4. Lysis of adhesions. 5. Excision of redundant skin. Brief History and Physical: The patient is a 46-year-old female whose original diagnosis was polycystic kidney disease. She developed end-stage renal failure and ultimately had a bilateral nephrectomy because of the large painful cysts from her kidneys. From that she developed an incisional hernia. She wanted to try peritoneal dialysis. So last fall, I attempted repair of her incisional hernia without mesh in an attempt to allow her to have peritoneal dialysis. Unfortunately, that failed and she required implantation of a biologic mesh because of early postoperative evisceration. She then developed an incisional hernia as expected which has increasingly enlarged and has become symptomatic, and now it is elected to proceed with repair. But, in order to repair her hernia, she required a component separation with bilateral muscle advancement flaps as well as placement of mesh. Consultants: Dr. Tacho Ac, nephrology Hospital Course: Patient was admitted and underwent the above mentioned operation without complication. Preoperatively, she had an epidural placed for postoperative pain management, however on postop day 1 with transferring for her hemodialysis , it apparently became dislodged. Later in the day, she had the epidural replaced due to out of control pain issues. On postoperative day 1 she was tolerating a regular diet without nausea or vomiting but had not passed a bowel movement. She is tolerating wearing an abdominal binder. Dr. Ac and nephrology team consult and had her back on her regular Friday hemodialysis schedule. On post op day #4 and 5, 2 of her 3 JOSLYN drains were able to be removed. The last JOSLYN was removed on her date of discharge. She continued to tolerate a regular ADA diet without nausea/vomiting. She was passing flatus but had not had a bowel movement, she was given MiraLAX but did not have a bowel movement before discharge. Her epidural was discontinued on postop day #4 however she did have some postoperative pain control issues for a few days following removal of her epidural. However, by her final postop day her pain was relatively well controlled with a combination of oxycodone 20 mg every 4-6 hours and IV Dilaudid for breakthrough pain. She had an extra hemodialysis on the 2 loose day of her discharge and was feeling that her pain was well enough controlled for discharge to home. She has supportive family at home to help with management. She was tolerating wearing her abdominal binder and she was given strict postoperative instructions by Dr. Townsend and myself. Her wound was healing well and she was independently ambulating in her room. She voiced understanding of these instructions and she will be seen back in the clinic in 2-3 weeks. Pathology: none Disposition: Discharge to home in stable condition was supportive family to assist at home Follow-up Plan: Follow-up with Dr. Townsend when the [facility] in 2-3 weeks Bupropion ER (Wellbutrin SR) 150 Mg Tablet.er 150 MG PO DAILY (Reported) Cinacalcet (Sensipar) 30 Mg Tablet 60 MG PO DAILY (Reported) Fluticasone Propionate (Fluticasone Propionate Nasal) 16 Gm [place].susp 1 SPRAY NS BID PRN PRN Secretion Control (Reported) Gabapentin (Gabapentin) 300 Mg Capsule 300 MG PO DAILY (Reported) Omeprazole (Omeprazole) 20 Mg Capsule.dr 20 MG PO DAILY (Reported) Ondansetron (Zofran) 8 Mg Tablet 8 MG PO Q8H PRN PRN For Nausea (Reported) Polyethylene Glycol 3350 (Miralax) 17 Gm Powd.pack 17 GM PO DAILY PRN PRN For Constipation Sevelamer Carbonate (Renvela) 800 Mg Tablet 800 MG PO TID (Reported) Venlafaxine ER (Venlafaxine ER) 150 Mg Cap.er.24h 150 MG PO DAILY (Reported) oxyCODONE (oxyCODONE) 5 Mg Tablet 10-20 MG PO Q4H PRN PRN For Moderate Pain Geetha Foss PAC April 22, 2017 09:53
--- NOTE | 2017-04-22 10:27 | PCM.PNNEPH ---
Naye Rae DO 04/22/17 1027: Subjective Date of Service April 22, 2017 Subjective Patient is doing well this morning with no acute events overnight.She states that her RLQ abdominal has improved with removal of the JOSLYN drain. Her appetite is good and she denies nausea, vomiting, diarrhea, constipation, fever, chills, chest pain or shortness of breath. Exam Vital Signs Vital Sign - Last Date Time Temp Pulse Resp B/P Pulse Ox O2 Delivery O2 Flow Rate FiO2 04/22/17 05:00 36.6 86 17 94/57 99 Room Air 04/16/17 08:13 3.00 Intake and Output 04/21/17 04/21/17 04/22/17 Cumulative From/Thru 15:00 23:00 07:00 04/09/17 10:07 - 04/22/17 05:55 Intake Total 400 ml 520 ml 35483 ml Output Total 1000 ml 30 ml 30 ml 7083 ml Balance -1000 ml 370 ml 490 ml 5116 ml Intake Oral 400 ml 520 ml 8325 ml IV Total 3874 ml Output Urine Total 0 ml 0 ml 0 ml Drainage Total 30 ml 30 ml 1033 ml Ultrafiltrate 1000 ml 6000 ml Estimated Blood Loss 50 ml # Bowel Movements 0 0 Exam General: Well-developed, appropriately interactive middle-aged woman in no acute distress HEENT: Normocephalic, atraumatic. PERRLA, no scleral icterus, mucosa moist/pink Neck: No JVD, lymphadenopathy or thyromegaly. Cardiovascular: RRR with no murmurs, rubs, or gallops appreciated Pulmonary: Clear to auscultation bilaterally with no crackles, wheezes, or rhonchi. Abdomen: Soft, appropriately tender, nondistended. Midline incision healing and well approximated, no erythema or discharge.Bowel tones present. Extremities: Mild nonpitting edema lower extremities bilaterally, distal pulses intact/equal bilaterally. Skin: Normal temperature, turgor, and texture. No rashes or ulcerations. Neurological: CN II-XII grossly intact. No focal motor or sensory deficit. Psychiatric: Normal mood and affect. Alert and oriented x3. IVs and Medications Medications Reviewed: Medications were reviewed in detail Lab and Diagnostics Laboratory Tests Test 04/21/17 13:17 White Blood Count 8.6th/mm3 (3.8-10.1) Red Blood Count 2.72mil/mm3 (3.90-5.20) Hemoglobin 9.2g/dL (12.0-15.6) Hematocrit 28.6% (35.0-46.0) Mean Corpuscular Volume 105.1fL (81-100) Mean Corpuscular Hemoglobin 33.8pg (27.0-35.0) Mean Corpuscular Hemoglobin Concent 32.2% (32.0-37.0) Red Cell Distribution Width 15.6% (12.3-15.4) Platelet Count 179bil/L (150-400) Result Diagram: 04/21/17 1317 04/18/17 0555 Plan Impression 46y/o F with end-stage renal disease secondary to longstanding polycystic kidney disease and hypertensive nephrosclerosis who is status post bilateral nephrectomy last year. Admitted for surgical repair of recurrent incisional hernia with abdominal mesh implantation. Nephrology consult for management of chronic kidney disease. 1. End-stage renal disease dialysis dependent (M,W,F) 2. Polycystic kidney disease s/p bilateral nephrectomy 3. Hypertension with hypertensive nephrosclerosis 4. Recurrent incisional hernia s/p repair with abdominal mesh implantation 7 days ago Plan: Patient was dialyzed yesterday (04/21) for 4hours with only 1L of fluid removed due to hypotension. Plan for an extra ultrafiltration treatment today due to net positive fluid balance prior to discharge. Resume normal dialysis schedule as outpatient Cem Hammer MD 04/22/17 1348: Subjective Subjective Patient is seen during HD, stable, pain controlled. HD: only ultrafiltration today, ~ 3L as tolerated. D/c home after treatment. Next HD in am at [facility]. Exam Lab and Diagnostics Result Diagram: 04/21/177 04/18/17 0555 Naye Rae DO April 22, 2017 10:27 Cem Hammer MD April 22, 2017 13:48
--- NOTE | 2017-04-22 10:28 | NUR ---
Social Work- Discharge D: EMR reviewed. Pt is on day 7 of hospitalization for recurrent incarcerated hernia per H&P. Pt is medically stable for discharge today, discharge orders are active. SW met with pt at bedside to confirm discharge plan. Pt reports that her mother or daughter will be transporting her home. Pt denied any questions or concerns related to discharge. Pt to transport home with family via POV. A: Pt who is independent at baseline. P: Pt to transport home with family via POV when medically stable. No discharge needs identified at this time. Mae Menard, SPECIMEN COLLECTOR
--- NOTE | 2017-04-22 13:37 | NUR ---
Dialysis note 3 hr PUF tx. 2 15 g needles to ALYSSA fistula QB 300 VSS thru tx. See DTR for complete vitals. Pt reports improved pain Only requested Zofran X1 Sureseal/clamps X15 mins post tx Report given and pt returned to floor stable.
[2017-04-22 15:30] VITALS: BP 94/64; PULSE 89; RESP 16; O2SAT 96
--- NOTE | 2017-04-22 16:20 | NUR ---
Discharge Orders for discharge were received. The plan to discharge was discussed with the patient who was agreeable to go. The patient was given information on her diagnosis and treatment, signs and symptoms to be aware of, follow up instruction, scripts and teaching on new prescriptions, which home mediations to continue, stool softener use information and surgical site care instructions. The patient signified understanding of this information, reenforced with the teach back method. The patient's asymptomatic IV the the DC'd intact and the patient dressed in her own clothing with her belongings gathered. The patient then ambulated to a wheelchair which took her to the main entrance where she entered a private family vehicle. At the time of discharge the patient was alert and oriented, vital signs stable, bowel tones present, surgical site dressings CDI and pain within a tolerable level.
== END 2017-04-22 15:38 | disposition home or self-care (01) | DRG 353 ==
LOC: SAS 07:27 → OSC 16:14
PROVIDERS: ADMIT Surgery; ATTEND Surgery
PROC: 0KNL0ZZ Release Left Abdomen Muscle, Open Approach (ICD-10-PCS; 2017-04-15)
PROC: 0KNK0ZZ Release Right Abdomen Muscle, Open Approach (ICD-10-PCS; 2017-04-15)
PROC: 0HB7XZZ Excision of Abdomen Skin, External Approach (ICD-10-PCS; 2017-04-15)
PROC: 0WUF0JZ Supplement Abdominal Wall with Synthetic Substitute, Open Approach (ICD-10-PCS; principal; 2017-04-15 09:15)
PROC: 5A1D00Z (ICD-10-PCS; 2017-04-16)
PROC: 00HU33Z Insertion of Infusion Device into Spinal Canal, Percutaneous Approach (ICD-10-PCS; 2017-04-17)
PROC: 00PUX3Z Removal of Infusion Device from Spinal Canal, External Approach (ICD-10-PCS; 2017-04-17)
PROC: 5A1D00Z (ICD-10-PCS; 2017-04-18)
PROC: 5A1D00Z (ICD-10-PCS; 2017-04-21)
PROC: 5A1D00Z (ICD-10-PCS; 2017-04-22)
DX: K43.2 Incisional hernia without obstruction or gangrene (principal); N18.6 End stage renal disease; I12.0 Hypertensive chronic kidney disease with stage 5 chronic kidney disease or end stage renal disease; Q61.2 Polycystic kidney, adult type; T85.620A Displacement of cranial or spinal infusion catheter, initial encounter; Z99.2 Dependence on renal dialysis

== ENCOUNTER 2017-04-27 17:39 | Inpatient (IN) | payer MEDICAID, MEDICARE ==
[~2017-04-27] VITALS: Ht 154.9 cm; Wt 89.3 kg
[~2017-04-27 17:39] MED LIST changes: -Dexamethasone 4 mg/mL Inj IVPUSH PRN; -EPHEDrine Sulfate 50 mg/mL Inj IVPUSH PRN; -HYDROmorphone 1 mg/mL Inj IVPUSH PRN; -Labetalol 5 mg/mL 4 mL Inj IV PRN; -Lactated Ringer's 1,000 ML IV SCH; -Lactated Ringer's 500 ML IV PRN; -MetoCLOpramide 5 mg/mL 2 mL Inj IVPUSH PRN; -Ondansetron 2 mg/mL 2 mL Inj IVPUSH PRN; +POLY17PO6 PO; -Phenylephrine 10,000 mCg/mL Inj IVPUSH PRN; -hydrALAZINE 20 mg/mL Inj IVPUSH PRN
--- NOTE | 2017-04-27 17:48 | ED.REPORT ---
HPI-Altered Mental Status Date of Service Apr 27, 2017 ED Provider: Dr. Christian 46 y/o female with a hx of hypertension and renal failure on dialysis presents to the ED via EMS complaining of confusion, onset today. The pt was last normal at 21:00 last night. Associated sx include LOC. The pt was on the floor and shaking when the EMS arrived. She can not remember the last time she went for dialysis. Denies myalgia, headache, extremity numbness or weakness, SOB, fever, chills, cough, dysuria and rash. She had a hernia repair surgery two weeks ago. Nursing Notes Stated Complaint: ALTERED LOC Nursing Notes Reviewed: Yes ([employer], [email or web address] not reconciled) Allergies: Coded Allergies: vancomycin (Verified Allergy, Intermediate, itch, 02/05/17) Scheduled Bupropion ER (Wellbutrin SR) 150 Mg Tablet.er 150 MG PO DAILY Cinacalcet (Sensipar) 30 Mg Tablet 60 MG PO DAILY Gabapentin (Gabapentin) 300 Mg Capsule 300 MG PO DAILY Omeprazole (Omeprazole) 20 Mg Capsule.dr 20 MG PO DAILY Sevelamer Carbonate (Renvela) 800 Mg Tablet 800 MG PO TID Venlafaxine ER (Venlafaxine ER) 150 Mg Cap.er.24h 150 MG PO DAILY Scheduled PRN Fluticasone Propionate (Fluticasone Propionate Nasal) 16 Gm [place].susp 1 SPRAY NS BID PRN PRN Secretion Control Ondansetron (Zofran) 8 Mg Tablet 8 MG PO Q8H PRN PRN For Nausea Polyethylene Glycol 3350 (Miralax) 17 Gm Powd.pack 17 GM PO DAILY PRN PRN For Constipation oxyCODONE (oxyCODONE) 5 Mg Tablet 10-20 MG PO Q4H PRN PRN For Moderate Pain General Time Seen by MD: 17:45 Chief Complaint Confused Hx Obtained From: Patient, EMS Arrived By: Ambulance Sudden in Onset?: Yes Onset Occurred: 21 - 23 hours ago Symptom Duration: Since onset Progression since Onset: Unchanged Severity: Current: No pain currently Severity: Maximum: No pain Recent Healthcare: Recent doctor visit Similar Sx Previous: No Past Medical History Past Medical History Notes: Admit for hernia repair March 2017 Money Market Clerk: Dr. Virgen PCP: Renea Wilhelm Past Medical History HTN Polycystic kidney Migraines Hx of cerebral aneurysms chronic renal failure on dialysis History of obstructive sleep apnea hernia Reports: Hypertension Past Surgical History Tubal ligation Uterine ablation Bladder sling Left AV fistula Bilatereal nephrectomys Hernia repair Reports: Tubal ligation Family History Father, at 52 from cerebral aneurysm Mother is 67 with CAD Smoking History Current Every Day Smoker Social History Alcohol Use: Denies alcohol use Drug Use: Denies drug use Other Social History: Local resident Occupation On disability Ambulatory Status Independent Review of Systems Constitutional: Denies: Chills, Fever Respiratory: Denies: Non-productive cough, Shortness of breath Skin: Denies Rash Neurologic: Reports: Change LOC, Confusion, Shaking, Denies: Headache, Numbness, Weakness Complete sys rev & neg: except as marked. Female: Denies: Dysuria Musculoskeletal: Denies: Myalgia Physical Exam Initial Vital Signs Vital Signs (First) Date Time Temp Pulse Resp B/P Pulse Ox O2 Delivery O2 Flow Rate FiO2 04/27/17 18:12 36.6 83 22 146/109 100 Room Air Initial VS: Reviewed, Unavailable (none on chart, ordered) General/Constitutional: Awake Opens her eyes Unable to provide history properly. States name and date of but not events Head / Eyes: Atraumatic, Normocephalic, PERRL Neck: Atraumatic, Full range of motion Respiratory / Chest: Atraumatic, Breath sounds NL, Breath sounds = bilat, No respiratory distress, No rales, No rhonchi, No wheezing Cardiovascular: Heart rate NL, Regular rhythm, Heart sounds NL, No gallop, No murmurs, No rubs No edema Neurologic: Speech NL, No sensory deficits Mental Status: Positive: Confused The pt is globally weak with no focal deficit. Can not follow instructions. Hard to get a good exam for asterixis, does have a flap. Abdomen: Atraumatic, Soft, Non-tender, No guarding, No rebound Abdominal incision post hernia repiar clean, dry and intact. Interpretation & Diagnostics Lab Results Interpretation Result Diagram: 04/27/17191704/27/171917 Test 04/27/17 19:18 White Blood Count 6.4th/mm3 (3.8-10.1) Red Blood Count 2.95mil/mm3 (3.90-5.20) Hemoglobin 9.7g/dL (12.0-15.6) Hematocrit 31.1% (35.0-46.0) Mean Corpuscular Volume 105.4fL (81-100) Mean Corpuscular Hemoglobin 32.9pg (27.0-35.0) Mean Corpuscular Hemoglobin Concent 31.2% (32.0-37.0) Red Cell Distribution Width 15.0% (12.3-15.4) Platelet Count 241bil/L (150-400) Neutrophils (%) (Auto) 72.6% (40-74) Lymphocytes (%) (Auto) 14.2% (14-46) Monocytes (%) (Auto) 4.7% (4-12) Eosinophils (%) (Auto) 7.2% (0-5) Basophils (%) (Auto) 0.5% (0-3) Sodium Level 138mEq/L (134-144) Potassium Level 4.3mEq/L (3.5-5.2) Chloride Level 93mEq/L (97-108) Carbon Dioxide Level 28mmol/L (18-29) Blood Urea Nitrogen 36mg/dL (6-24) Creatinine 8.45mg/dL (0.57-1.00) Estimat Glomerular Filtration Rate 7mL/min (>59) Glucose Level 96mg/dL (60-99) Lactic Acid Level 0.5mmol/L (0.4-2.0) Calcium Level 9.0mg/dL (8.5-10.1) Magnesium Level 2.0mg/dL (1.6-2.6) Total Bilirubin 0.2mg/dL (0.0-1.2) Aspartate Amino Transf (AST/SGOT) 12U/L (0-50) Alanine Aminotransferase (ALT/SGPT) 5U/L (0-32) Alkaline Phosphatase 147U/L (25-150) Ammonia 18ug/dL (18-53) Total Protein 5.9g/dL (6.4-8.4) Albumin 3.2g/dL (3.4-5.0) Blood gas report: pH = 7.469 pCO2 = 39 pO2 = 111.0 cHCO3- = 27/9 cBase = 4.4 Lab Results Interpretation: CBC normal CMP chronic renal failure Ammonia normal Lactic acid normal ECG Interpretation ECG Interpretation: Normal sinus rhythm. Rate 70. No abnormalities. No change from previous ECG on 08/07/16 Time: 19:14 Interpreted by: ED physician X-Ray Chest Interpretation Chest Xray Interpretation: IMPRESSION: Normal for age except for reduced inspiratory volume. Dictated by: Octavio Garcia M.D. on 04/27/2017 at 19:02 Approved by: Octavio Garcia M.D. on 04/27/2017 at 19:03 View: Portable, 1 view Interpretation / Wet Read by: Interpret - Radiologist CT Head Interpretation IMPRESSION: Normal for age, source of confusion is not seen. Dictated by: Octavio Garcia M.D. on 04/27/2017 at 19:03 Approved by: Octavio Garcia M.D. on 04/27/2017 at 19:03 Study: Head CT no contrast Interpretation / Wet Read by: Interpret - Radiologist Procedures Femoral Blood Draw Time: 19:05 Skin prep: Chlorhexidine Lab Results Interpretation Result Diagram: 04/27/17191704/27/171917 Test 04/27/17 19:18 White Blood Count 6.4th/mm3 (3.8-10.1) Red Blood Count 2.95mil/mm3 (3.90-5.20) Hemoglobin 9.7g/dL (12.0-15.6) Hematocrit 31.1% (35.0-46.0) Mean Corpuscular Volume 105.4fL (81-100) Mean Corpuscular Hemoglobin 32.9pg (27.0-35.0) Mean Corpuscular Hemoglobin Concent 31.2% (32.0-37.0) Red Cell Distribution Width 15.0% (12.3-15.4) Platelet Count 241bil/L (150-400) Neutrophils (%) (Auto) 72.6% (40-74) Lymphocytes (%) (Auto) 14.2% (14-46) Monocytes (%) (Auto) 4.7% (4-12) Eosinophils (%) (Auto) 7.2% (0-5) Basophils (%) (Auto) 0.5% (0-3) Sodium Level 138mEq/L (134-144) Potassium Level 4.3mEq/L (3.5-5.2) Chloride Level 93mEq/L (97-108) Carbon Dioxide Level 28mmol/L (18-29) Blood Urea Nitrogen 36mg/dL (6-24) Creatinine 8.45mg/dL (0.57-1.00) Estimat Glomerular Filtration Rate 7mL/min (>59) Glucose Level 96mg/dL (60-99) Lactic Acid Level 0.5mmol/L (0.4-2.0) Calcium Level 9.0mg/dL (8.5-10.1) Magnesium Level 2.0mg/dL (1.6-2.6) Total Bilirubin 0.2mg/dL (0.0-1.2) Aspartate Amino Transf (AST/SGOT) 12U/L (0-50) Alanine Aminotransferase (ALT/SGPT) 5U/L (0-32) Alkaline Phosphatase 147U/L (25-150) Ammonia 18ug/dL (18-53) Total Protein 5.9g/dL (6.4-8.4) Albumin 3.2g/dL (3.4-5.0) Re-Eval/Medical Decision Med Decision/Clinical Course This is a 46-year-old female with chronic renal failure status post bilateral nephrectomies for polycystic ovaries, as recently hospitalized for a complex hernia repair. Today by EMS with altered mental status, according to family she did doing fine until last night started to more confused and goofy. Family is very concerned that her ammonia levels rub, and clamminess she has had problems with an elevated pneumonia a few years ago-even though she does not have any known liver disease. His been no fevers, or other clear symptoms. This been no trauma. Arrival the patient's sedated, and a blood gas was obtained that is normal without evidence of hypercapnia. She had no clinical findings of respiratory failure. She did not have pinpoint pupils-she has still on pain medications. She was drowsy, but confused she would attempt to answer questions but had difficulty. She is profoundly globally weak. She appeared sedated, and polypharmacy is in the differential. Should no external signs of trauma. Her vitals are normal with no fever. Head CT was negative. Blood work and labs were extremely difficult-IV therapy with an ultrasound looked all over including both upper and lower extremities for parenteral access but was unsuccessful. Ultimately I nya blood from the left femoral and the blood work reveals a chronic renal failure. Meanwhile over 7 hours the patient started to perk up and become more energetic-she is still confused, but is no longer clinically sedated. She is alert, but mildly confused. She mentions that she has some back pain yesterday and it sounds like she took some leftover muscle relaxant she had full within a year ago, that she thinks may have been baclofen. There is no suicidal ideation, no major ingestion. In the medication up with pharmacy-baclofen is recommended to be completely avoided impatience on hemodialysis dialysis based on multiple case reports. This history is common, and this presentation fits with this, it is dialyzed. The patient's already improved, but again is not back to normal. At this point she also still does not parenteral access, but she is markedly improved. If she crashes there is potential access to her fistula. I have talked with Dr. Vazquez from nephrology is indicated that we could place a right IJ line in and went to initially start to place a line, but the patient so much perkier and so much better and wanted first started, and I am hesitant to place a central line and I am not convinced is actually indicated at this time. I discussed the case with the hospitalist and the plan will be continued to observe, although she is much improved, she is still not normal, and diagnosis may be confirmed if she is returned to normal postdialysis as a pharmacy notes indicate that the baclofen is readily removed by hemodialysis. Source of Hx: Old records, EMS Re-Evaluation/Progress #1: Time of Eval: 18:56 Patient Status: Condition improved Re-Evaluation/Progress Note: Rechecekd pt. The pt's daughter states she has had similar sx before and was diagnosed with abnormal ammonia levels at the time. She has also used Lactulose. Re-Evaluation/Progress #2: Time of Eval: 20:09 Patient Status: Condition improved Re-Evaluation/Progress Note: Rechecked pt. Discussed lab results and plan to admit. Pt and her family understand and agree with the plan for admission. All questions addressed. Consultation #1: Referral / Consult Name: Cem Hammer MD Consulted With: Nephrology Call Returned at: 20:05 Station Installation Supervisor: Agrees with eval, Agrees with plan Note: Dr. Galaviz states an IJ central line may be placed if necessary. Consultation #2: Referral / Consult Name: Yehuda Santamaria MD Consulted With: Hospitalist Call Returned at: 20:11 Station Installation Supervisor: Will see patient, Agrees with eval, Agrees with plan, Accepts admit Counseled Regarding: Diagnosis, Lab results, Need for admission Patient Discharge & Departure Impression: Primary Impression: Altered mental status Altered mental status type: somnolence Qualified Code: R40.0 - Somnolence Additional Impressions: Baclofen overdose Encounter type: initial encounter Injury intent: accidental or unintentional Qualified Code: T42.8X1A - Poisoning by antiparkinsonism drugs and other central muscle-tone depressants, accidental (unintentional), initial encounter Chronic renal failure Chronic kidney disease stage: stage 5 Qualified Code: N18.5 - Chronic kidney disease, stage 5 Disposition: ADMITTED TO HOSPITAL Discharge Condition All VS Reviewed: Yes Referrals: Stacie Wilhelm PA-C (PCP) Scribe Attestation Portions of this note were transcribed by Tessie Sousa. I, , personally performed the history, physical exam and medical decision-making;I reviewed and confirmed the accuracy of the information in the transcribed note. Signed by Monica Son. 04/27/17 19:18 copies to: Stacie Wilhelm PA-C, Matthew F MD Apr 27, 2017 17:48 Tessie Sousa Apr 27, 2017 18:04
[2017-04-27 18:12] VITALS: BP 146/109; PULSE 83; RESP 22; O2SAT 100
--- NOTE | 2017-04-27 19:04 | DRSVH ---
PROCEDURE: X-RAY CHEST ONE VIEW, PORTABLE ([id number]) INDICATIONS: Altered LOC TECHNIQUE: One view of the chest was acquired. COMPARISON: None. FINDINGS: Surgical changes and devices: None. Lungs and pleura: No pleural effusions or pneumothorax. Lungs are clear. Mediastinum: Mediastinal contours appear normal. Heart size is normal. Bones and chest wall: No suspicious bony lesions. Overlying soft tissues appear unremarkable. IMPRESSION: Normal for age except for reduced inspiratory volume. Dictated by: Octavio Garcia M.D. on 04/27/2017 at 19:02 Approved by: Octavio Garcia M.D. on 04/27/2017 at 19:03
[2017-04-27] MEDS ORDERED: Lactulose 20 Gm/30 mL 30 mL Syrup PO ONE (19:05)
--- NOTE | 2017-04-27 19:05 | DRSVH ---
PROCEDURE: CT BRAIN WITHOUT CONTRAST ([id number]) INDICATIONS: Altered LOC TECHNIQUE: Noncontrast 4.5 mm thick angled axial sections acquired from the foramen magnum to the vertex, with c oronal reformats. COMPARISON: None. FINDINGS: Image quality: Excellent. CSF spaces: Basal cisterns are patent. No extra-axial fluid collections. Ventricles are normal in size and shape. Brain: No midline shift. No intracranial masses or hemorrhage. Schmidt-white matter interface is norm al. Skull and face: Calvarium and visualized facial bones are intact, without suspicious lesions. Sinuses: Visualized sinuses and mastoids are clear. IMPRESSION: Normal for age, source of confusion is not seen. Dictated by: Octavio Garcia M.D. on 04/27/2017 at 19:03 Approved by: Octavio Garcia M.D. on 04/27/2017 at 19:03
[2017-04-27 19:25] LABS: BASOPHILS % (AUTO) 0.5 % (0-3); EOSINOPHILS % (AUTO) 7.2 % (0-5); MONOCYTES % (AUTO) 4.7 % (4-12); Mean Corpuscular Hemoglobin 32.9 pg (27.0-35.0); Mean Corpuscular Volume 105.4 fL (81-100); NEUTROPHILS % (AUTO) 72.6 % (40-74); Platelet Count 241 bil/L (150-400)
--- NOTE | 2017-04-27 19:25 | ABG ---
DateTimeAnalyzed 19:19:00 -_ pH ____7.469 - pCO2 ___38.9__ -mmHg pO2 111 -mmHg HCO3- ___27.9__ -mmol/L ABE ____4.4__ -mmol/L tHb ___12.2__ -g/dL O2Hb ___96.2__ -% COHb ____1.7__ -% MetHb ____0.9__ -% sO2 ___98.8__ -% FIO2 ___21.0__ -% Drawn By _LAB TECH - Date/Time Notified____ 19:24:00 -_ Notified Whom LILIYA, MEI -____ B 761 -mmHg tO2 ___16.7__ -Vol% Gustavo test N/A -
[2017-04-27 19:42] VITALS: BP 142/88; PULSE 72; RESP 10; O2SAT 98
[2017-04-27] MEDS ORDERED: Ondansetron 2 mg/mL 2 mL Inj IVPUSH PRN (20:20)
[2017-04-27] MEDS ORDERED: Polyethylene Glycol (PEG) 17 Gm Powder PO PRN (20:20)
[2017-04-27] MEDS ORDERED: Alum-Mag Hydrox-Simeth 30 mL Suspension PO PRN (20:20)
[2017-04-27 20:59] VITALS: BP 142/88; PULSE 72; RESP 10; O2SAT 98
[2017-04-27 21:00] VITALS: BP 132/79; PULSE 77; RESP 20; O2SAT 95
[2017-04-27 21:21] VITALS: PULSE 85
--- NOTE | 2017-04-27 22:11 | PCM.HPMED ---
Subjective Date of Service Apr 27, 2017 Primary Provider: Admitting Physician: Yehuda Santamaria MD Primary Care Physician: Alfredito Urias MD Attending Physician: Yehuda Santamaria MD Admit Status: From the Emergency Department Chief Complaint: Encephalopathy History of Present Illness: Ms. Cuellar is a 46-year-old female with past medical history of hypertension and renal failure s/p bilateral nephrectomy currently on HD Friday who presents to the ED via EMS secondary to confusion 1 day. Patient lives with her grandfather, last known normal was yesterday 2000 hrs, when she went to sleep. Patient states she took a baclofen last night which had previously been prescribed to her in addition to her regular medications which include pramipexole, venlafaxine, gabapentin bupropion and oxycodone. She was reported to have been up and down all night, kept rolling off the couch of which she sleeps. Today she was found to be shaky and confused by EMS which is reported to be far off her baseline. She last got her HD on Friday. She denies fever/chills headache, visual disturbances, nausea/vomiting, extremity numbness or weakness, shortness of breath, cough, chest pain, change in bowel habits. Patient is anuric at baseline secondary to bilateral nephrectomy. Patient daughter at bedside and provides much of the history of present illness. In the ED EKG showed no abnormalities, CT brain and chest x-ray unremarkable. Lab values shows mild anemia, normal ammonia level, BUN/creatinine 36/8.45. Dr. Johansen of nephrology consulted. Review of Systems: A comprehensive review of systems was conducted with the patient and found to be negative except as above in the history of present illness. Allergies Coded Allergies: vancomycin (Verified Allergy, Intermediate, itch, 02/05/17) Home Medications Bupropion ER (Wellbutrin SR) 150 Mg Tablet.er 150 MG PO DAILY Cinacalcet (Sensipar) 30 Mg Tablet 60 MG PO DAILY Gabapentin (Gabapentin) 300 Mg Capsule 300 MG PO DAILY Omeprazole (Omeprazole) 20 Mg Capsule.dr 20 MG PO DAILY Sevelamer Carbonate (Renvela) 800 Mg Tablet 800 MG PO TID Venlafaxine ER (Venlafaxine ER) 150 Mg Cap.er.24h 150 MG PO DAILY Fluticasone Propionate (Fluticasone Propionate Nasal) 16 Gm [place].susp 1 SPRAY NS BID PRN PRN Secretion Control Ondansetron (Zofran) 8 Mg Tablet 8 MG PO Q8H PRN PRN For Nausea Polyethylene Glycol 3350 (Miralax) 17 Gm [place].pack 17 GM PO DAILY PRN PRN For Constipation oxyCODONE (oxyCODONE) 5 Mg Tablet 10-20 MG PO Q4H PRN PRN For Moderate Pain Per outpatient records additional active medications include: Hydrocodone 5-325 Pramipexole 0.125 mg tablet 2-3 hours before at bedtime, started 03/19/2017 PMH . HTN Polycystic kidney Migraines Hx of cerebral aneurysms chronic renal failure on dialysis History of obstructive sleep apnea Recent hernia repair Surgical History Tubal ligation Uterine ablation Bladder sling Left AV fistula Bilatereal nephrectomys Hernia repair Family History Father, at 52 from cerebral aneurysm Mother is 67 with CAD Social History Hx Alcohol Use: No Hx Substance Use: No Hx Tobacco Use: Yes Smoking Status: Current Every Day Smoker Exam Vital Signs Vital Sign - Last Date Time Temp Pulse Resp B/P Pulse Ox O2 Delivery O2 Flow Rate FiO2 04/27/17 19:42 72 10 142/88 98 Room Air 04/27/17 18:12 36.6 Exam General: No acute distress, well-developed, well-nourished, confused though responds appropriately to questions HEENT: Normocephalic, atraumatic. External ears without defect. Pupils equal, round, and sluggish. Extraocular movements are not intact, patient unable to track in all visual dumont. Upper dental bridge in place Neck: Supple with full range of motion. No jugular venous distension. Cardiovascular: Regular rate and rhythm with very soft systolic murmur, no rubs , or gallops appreciated Pulmonary: Clear to auscultation bilaterally with no crackles, wheezes, or rhonchi. Normal respiratory effort with no use of accessory muscles. Abdomen: Bowel tones present. Soft, nontender, nondistended. Extremities: No clubbing, cyanosis appreciated. Mild Nonpitting edema upper or lower extremities. Reported to be normal for patient. Skin: Normal temperature, turgor, and texture Neurological: Cranial nerves grossly intact. Psychiatric: Confused. A&O 2/4. Speech within normal limits. Able to converse appropriately. Lab and Diagnostics Result Diagram: 04/27/17191704/27/17 1918 X-Rays, CTs and MRIs . CT BRAIN WITHOUT CONTRAST IMPRESSION: Normal for age, source of confusion is not seen. Dictated by: Octavio Garcia M.D. on 04/27/2017 at 19:03 X-RAY CHEST ONE VIEW, PORTABLE IMPRESSION: Normal for age except for reduced inspiratory volume. Dictated by: Octavio Garcia M.D. on 04/27/2017 at 19:02 12-lead ECG Normal sinus rhythm. Rate 70. No abnormalities. No change from previous ECG on 08/07/16 Additional Diagnostics: DateTimeAnalyzed 19:19:00 -_ pH ____7.469 - pCO2 ___38.9__ -mmHg pO2 111 -mmHg HCO3- ___27.9__ -mmol/L ABE ____4.4__ -mmol/L tHb ___12.2__ -g/dL O2Hb ___96.2__ -% COHb ____1.7__ -% MetHb ____0.9__ -% sO2 ___98.8__ -% FIO2 ___21.0__ -% Drawn By _LAB TECH - Date/Time Notified____ 19:24:00 -_ Notified Whom SIGIFREDO LOVELL -____ B 761 -mmHg tO2 ___16.7__ -Vol% Gustavo test N/A - Assessment & Plan 46 year old female with PMH of hypertension with reported brain aneurysm, renal failure on HD admitted for encephalopathy. Encephalopathy. Acute. Present on admission. Ongoing - Most likely secondary to polypharmacy - baclofen, oxycodone, pramipexole, venlafaxine - Last HD Friday04/25/2017 - No evidence for infection - Hold home meds - Nephrology consult - Hold home meds pending swallow eval Chronic renal failure on dialysis. Present on admission. Ongoing - Nephrology consult for hemodialysis Hypertension. Present on admission. Ongoing - On admit patient mildly hypertensive - Patient denies home medications for hypertension - At time of dictation Pt. normotensive - Unable to achieve IV access - We will closely monitor for possible IJ placement Anemia. Present on admission. Ongoing - Most likely dilutional - Continue to monitor Patient Status: Patient was admitted under inpatient status with expected length of stay greater than two midnights due to severity of presenting symptoms , risk of adverse event, and complexity of treatment plan. Pain Evaluation: Adequate Pain Control VTE Prophylaxis: Sub-Q Heparin (Unfractionated) Resuscitation Status: CPR: Attempt Resuscitation Attending Statement The patient was seen and examined together with Dr. Burgos on 04/27 and I agree with the history, exam and plan as outlined in the note above. GODWIN BURGOS DO Apr 27, 2017 20:25 Yehuda Santamaria MD Apr 28, 2017 03:05
[2017-04-27 23:54] VITALS: BP 119/78; PULSE 80; RESP 16; O2SAT 98
[2017-04-28 04:57] VITALS: BP 122/72; PULSE 84; RESP 20; O2SAT 98
--- NOTE | 2017-04-28 06:20 | NUR ---
Admit Pt arrived on unit at 2100 on [place]. Pt used 1-2 person assist to transfer to bed, with somewhat unsteady gait. VSS, pt denies pain. Pt is oriented to placed, cannot recall or year. Pt knows daughters name. Pt aware that she is having difficulty with memory. Unable to gain IV access, MD aware. Pt has short attention span, falls asleep quickly. Follows direction as she is able. Admission and med rec completed with pt and daughter verbal interview. See flowsheet for full assessment.
[2017-04-28 08:59] VITALS: BP 115/87; PULSE 70
--- NOTE | 2017-04-28 09:12 | NUR ---
Dialysis The pt left the unit for dialysis on MOC at 0830. She left with an altered LOC - MD's aware.
[2017-04-28 09:32] VITALS: PULSE 83
[2017-04-28] MEDS ORDERED: Benztropine 1 mg/mL 2 mL Inj IM SCH (10:00)
--- NOTE | 2017-04-28 11:43 | CONS ---
[address] [address] CONSULTATION REPORT PATIENT: ALESHIA SOLORIO : 1970 MR#: [id number] ADMIT: 04/27/2017 JOB ID: [id number] DATE OF SERVICE: HISTORY: The patient is a 46-year-old, white female, with a history of end-stage renal disease, who is well known to me from previous consultations. She was admitted yesterday for abrupt onset of confusion. She was seen in the emergency department and subsequently admitted. Renal consultation is being sought for further evaluation of her chronic kidney disease and dialysis. The patient has a history of end-stage renal disease and normally dialyzes on Friday, Friday, and Friday. The etiology of her renal failure is due to longstanding autosomal dominant polycystic kidney disease. She has undergone a bilateral nephrectomy in preparation for her renal transplant. Several weeks ago, she was admitted to undergo repair of an abdominal hernia with mesh implantation by Dr. Travis Twonsend. This procedure was quite successful and, after several days postoperatively, she was discharge home. Unfortunately, there is little information from either the emergency department chart or the H and P as far aggravating or precipitating events. The patient is unable to give me any information when I saw her in dialysis. She has been taking oxycodone for abdominal pain, and also takes bupropion, gabapentin, venlafaxine, pantoprazole, and took some baclofen last night. Subsequent to that, she began to have agitation, myoclonic jerks, tremor, and marked disorientation. Knowing the patient as I have from previous evaluations, this is a marked change from her normal baseline. She denies any ethanol use. In the emergency department, her laboratory parameters were not abnormal other than consistent with chronic kidney disease. She denies any recent cough, wheezing, rash, arthralgias, nausea, vomiting, diarrhea. There is no fever or chills. PAST MEDICAL HISTORY: Is significant for polycystic kidney disease-autosomal dominant, end-stage renal disease, several small cerebral aneurysms, obstructive sleep apnea, hypertension with hypertensive heart disease and hypertensive nephrosclerosis. PAST SURGICAL HISTORY: Is significant for AV fistula, bilateral nephrectomies with subsequent hernia repair, endometrial ablation and tubal ligation. ALLERGIES: VANCOMYCIN. SOCIAL HISTORY: She denies use of alcohol, but does smoke less than a pack of cigarettes a day. FAMILY HISTORY: Remarkable for polycystic kidney disease in her father, who of a cerebral aneurysm. Her mother is alive with a history of coronary artery disease. REVIEW OF SYSTEMS: Is detailed above. Otherwise is unobtainable. MEDICATIONS ON ADMISSION: Include Wellbutrin, Sensipar, gabapentin, omeprazole, Renvela, venlafaxine, Zofran, polyethylene glycol, hydrocodone, and baclofen. PHYSICAL EXAMINATION: Revealed an awake but somewhat confused, but non-agitated, 46-year-old, white female, who was alert and able to answer very simple questions. She was not in any distress. Her blood pressure is 122/72, with a pulse rate of 83. HEENT examination is remarkable for pale sclerae. Neck is supple without adenopathy, thyromegaly, or jugular venous distention. Lungs are clear to auscultation. Heart is regular and rhythmical with a soft systolic murmur. Abdomen is soft, without any tenderness, rebound or guarding. A limited exam was performed because she still has some generalized postoperative pain. Extremities did not show any evidence of any clubbing, cyanosis, or edema. Skin turgor is good. Neurological examination: The patient has an expressionless face which seems to be different than her previous examinations. There is also evidence of some occasional myoclonic jerks and some questionable cogwheeling. Otherwise her muscle strength and reflexes were normal. LABORATORY EXAMINATION: On admission, her hemoglobin was 9.7, hematocrit 31.1. Red cell indices, platelet count, differential and white count were normal. Her ammonia was 18. Sodium is 138, potassium 4.3, chloride 93, bicarbonate 28. BUN and creatinine were 36 and 8.45, respectively. IMPRESSION: 1. Acute mental status change with possible drug reaction. 2. Autosomal dominant polycystic kidney disease. 3. Bilateral nephrectomy. RECOMMENDATION: 1. The patient should be dialyzed today on a Revaclear Dialyzer for 4 hours, two potassium bath, 500 blood flow with 600 dialysate flow, 2000 of heparin as a loading dose and 500 per hour, will try to take off 2-3 L, and run her at temperature of 35 degrees Celsius. 2. I would strongly urge Neurology evaluation for further evaluation of this, and I will go ahead and give her a dose of Cogentin and see if there is any improvement in her condition. Once again, I would like to thank you for allowing me to participate in the care of this most pleasant interesting patient. I will be following her closely with you.
--- NOTE | 2017-04-28 13:22 | NUR ---
Dialysis note: 4 hr tx, Net UF 3500. Pt arrived on MOC with LOC below baseline. Lethargic, difficulty forming words and slurring, crying easily. Pitting edema, 3+ LE bilat, hands puffy bilat. PATRICIA fistula, 2 - 15g needles. Cogentin 2mg given at [address] Ac orders. 50 min later she was not crying during conversations and able to formulate words more effectively. She requested lunch, put her on a renal diet, and she ate soup and crackers but needed assistance holding spoon. Blood returned, SS, clamps x 15min. Conversation is almost back to baseline, hand manipulation is still difficult. Pt returned to floor stable. Report given to primary RN, Renea. Please see DTR for complete record of VS.
--- NOTE | 2017-04-28 14:24 | NUR ---
Case Management- IMM explained and signed by patient. Copy given to patient. Original placed in chart. Dagmar RAMOS/SHADY
[2017-04-28 15:17] VITALS: BP 113/88; PULSE 94; RESP 20; O2SAT 95
--- NOTE | 2017-04-28 15:19 | NUR ---
Dialysis/POC The pt has 3.5 Liters removed during dialysis, and her mentation cleared. She is now A&Ox3, and is independent in the room. The decision has been made to keep her overnight for observation.
--- NOTE | 2017-04-28 15:24 | NUR ---
Evaluation completed. Please go to "Notes" then click on "Assessments and Notes" (bottom left corner of screen). Then select appropriate discipline tab on top of screen.
--- NOTE | 2017-04-28 16:12 | NUR ---
Social Work Note: Initial Assessment Data& Assessment: EMR reviewed. FRANNIE met with pt and pt mother at bedside to discuss discharge planning, FRANNIE role explained. Agustina Cuellar is a 46 year old female admitted on 02/26/2017 for altered mental status and chronic renal insufficiencies. Pt has Medicare insurance coverage and sees Alfredito Urias MD for primary care. Pt lives in [place] with her Grandfather. Pt is independent at baseline with all ADL's and does not require any DME. Pt drives, but if she is not feeling well, pt grandfather drives her. Pt does not have HH or SNF hx. Pt does not have LT insurance or VA benefits. Pt is a MWF dialysis pt at the [facility]. FRANNIE requested that we contact [facility] and notify her that she is hospitalized. FRANNIE left a voicemail for [facility] per pt request. Pt family to transport pt home at time of discharge. Pt accepted DPOA/ADvance Directive paperwork to review and complete when possible. Pt and pt family deny any other needs. No other discharge needs identified. Plan: Anticipated discharge home via POV when medically ready. Pt and pt family deny any other needs. No other discharge needs identified. ASAD Cates Addendum: 04/28/17 at 1622 by TAYLOR FREDERICK Amended: Links added.
--- NOTE | 2017-04-28 16:53 | PCM.PNMED ---
Subjective Date of Service Apr 28, 2017 Subjective The patient was initially evaluated this morning while receiving dialysis, at that time she was quite altered and was essentially unable to provide any intelligible history or ROS. Later in the afternoon following dialysis the patient was re-examined, and her mental status was much improved. She now reports that she is "90% myself" in terms of cognition. She states that she still feels slightly unsteady on her feet. She denies chest pain, SOB, nausea, vomiting, or diarrhea. She underwent repair of prior incisional hernias on with Dr. Wilfred Townsend, and states that she has only a small degree of manageable pain secondary to that procedure. Comprehensive ROS negative except as outlined above. Exam Vital Signs Vital Sign - Last Date Time Temp Pulse Resp B/P Pulse Ox O2 Delivery O2 Flow Rate FiO2 04/28/17 15:17 37.0 94 20 113/88 95 Room Air Intake and Output 04/27/17 04/27/17 04/28/17 Cumulative From/Thru 15:00 23:00 07:00 04/27/17 21:00 - 04/28/17 06:41 Intake Total 0 ml 0 ml Output Total 0 ml 0 ml Balance 0 ml 0 ml Intake Oral 0 ml 0 ml Output Urine Total 0 ml 0 ml Exam Gen: A/O x3 pleasant, slightly altered patient having difficulty with word finding Neck: Supple, non tender, no thyromegaly, Full ROM HEENT: PERRL, EOMI, no scleral icterus, no conjunctival pallor CV: RRR, dialysis fistula trill is audible on cardiovascular exam beast heard at the right sternal border, no rubs or gallops Lungs: Lungs CTA BL, no wheezing rales or rhonchi Abd: Soft, non tender, no organomegaly, non distended, BS + 4Q Extr: Dialysis fistula in left antecubital area with audible and palpable trill , no clubbing or cyanosis. BL UE edema L>R Neuro: CN 2-12 grossly intact, some difficulty with word finding and speech fluency Psych: normal mood and affect. IVs and Medications Medications Reviewed: Medications were reviewed in detail Lab and Diagnostics Result Diagram: 04/27/17191704/27/171917 X-Rays, CTs and MRIs CT BRAIN WITHOUT CONTRAST IMPRESSION: Normal for age, source of confusion is not seen. Dictated by: Octavio Garcia M.D. on 04/27/2017 at 19:03 X-RAY CHEST ONE VIEW, PORTABLE IMPRESSION: Normal for age except for reduced inspiratory volume. Dictated by: Octavio Garcia M.D. on 04/27/2017 at 19:02 . 12-lead ECG Normal sinus rhythm. Rate 70. No abnormalities. No change from previous ECG on 08/07/16 Additional Diagnostics DateTimeAnalyzed 19:19:00 -_ pH ____7.469 - pCO2 ___38.9__ -mmHg pO2 111 -mmHg HCO3- ___27.9__ -mmol/L ABE ____4.4__ -mmol/L tHb ___12.2__ -g/dL O2Hb ___96.2__ -% COHb ____1.7__ -% MetHb ____0.9__ -% sO2 ___98.8__ -% FIO2 ___21.0__ -% Drawn By _LAB TECH - Date/Time Notified____ 19:24:00 -_ Notified Whom SIGIFREDO LOVELL -____ B 761 -mmHg tO2 ___16.7__ -Vol% Gustavo test N/A - Assessment & Plan 46 year old female with PMH of hypertension with reported brain aneurysm, renal failure on HD admitted for encephalopathy likely secondary to polypharmacy with the patient having taken some reportedly Baclofen in the setting of BL nephrectomy and thus no renal clearance of medication. The patient improved markedly following dialysis. Home medications with potential psychotropic effect will be deferred until tomorrow AM to assist in improvement of mental status. Encephalopathy. Acute. Present on admission. Improved - Most likely secondary to polypharmacy - baclofen, oxycodone, pramipexole, venlafaxine - Last HD Friday04/25/2017 - No evidence for infection - Hold home meds - Nephrology consult - Dialysis 04/28/17 with profound improvement of mental status - Will resume home meds tomorrow AM Chronic renal failure on dialysis. Present on admission. Ongoing - Nephrology consult for hemodialysis Hypertension. Present on admission. Ongoing - On admit patient mildly hypertensive, since trended back to normal - Patient denies home medications for hypertension - At time of dictation Pt. normotensive - Unable to achieve IV access - We will closely monitor for possible IJ placement Anemia. Present on admission. Ongoing - Most likely dilutional - Continue to monitor Chronic pain secondary to multiple orthopedic issues and recent surgery, POA, acute on chronic. Active -Continue home Oxycodone tomorrow AM -Continue home Gabapentin tomorrow AM Hypercalcemia and hyperphosphatemia of renal failure, POA, chronic. Active -Continue home Cinacalcet -Continue home Sevelamer Depression and anxiety, POA, chronic. Stable -Resume home Bupropion tomorrow AM -Resume home Venlafaxine tomorrow AM Disposition: The patient will likely be able to DC home tomorrow with no further needs pending evaluation by physical therapy and continued improvement of her mental status. . Pain Evaluation: Adequate Pain Control VTE Prophylaxis: Sub-Q Heparin (Unfractionated) Resuscitation Status: CPR: Attempt Resuscitation Maxim Joseph DO Apr 28, 2017 16:53
[2017-04-28] MEDS ORDERED: Fluticasone 0.05% 15 Spray/2 Gm 16 Gm Nasal Spray NASAL PRN (17:00)
[2017-04-28] MEDS: Pantoprazole 20 mg ER24 Tablet PO SCH (17:59)
[2017-04-28 20:12] VITALS: BP 127/76; PULSE 96; RESP 18; O2SAT 97
[2017-04-28] MEDS ORDERED: Pantoprazole 20 mg ER24 Tablet PO SCH (20:30)
[2017-04-28 21:29] VITALS: PULSE 100
[2017-04-29] VITALS (7 sets, daily range): BP systolic 107–122; BP diastolic 71–80; PULSE 78–104; RESP 14–18; O2SAT 94–100
[2017-04-29 03:47] LABS: BASOPHILS % (AUTO) 0.7 % (0-3); EOSINOPHILS % (AUTO) 5.6 % (0-5); MONOCYTES % (AUTO) 4.2 % (4-12); Mean Corpuscular Hemoglobin 33.2 pg (27.0-35.0); Mean Corpuscular Volume 109.6 fL (81-100); NEUTROPHILS % (AUTO) 70.5 % (40-74); Platelet Count 264 bil/L (150-400)
[2017-04-29 04:06] LABS: INR 1.12 ratio
[2017-04-29 04:12] LABS: Phosphorus 4.1 mg/dL (2.5-4.9)
--- NOTE | 2017-04-29 05:09 | NUR ---
Pain/LOC Pt alert and oriented x3. Forgetful at times but appropriate with staff. She c/o chronic back /incisional pain. Oxycodone given with some relief noted. Pt has been awake most of the night. Napping intermittently. Ambulates in room independently. Telemetry SR/ST 90s-100s. Heart rate up to 140s during activity.
[2017-04-29] MEDS: Pantoprazole 20 mg ER24 Tablet PO SCH (07:38)
--- NOTE | 2017-04-29 08:23 | NUR ---
Feeling well this morning, pain well controlled. Vital signs stable, SR on tele. To [id number] for Hemodialysis this morning, 0820.
[2017-04-29] MEDS ORDERED: Venlafaxine XR 75 mg ER24 Capsule PO SCH (08:30)
[2017-04-29] MEDS ORDERED: buPROPion SR 150 mg ER12 Tablet PO SCH (08:30)
--- NOTE | 2017-04-29 08:48 | NUR ---
pt arrived [place] [facility] [place] at ~0820 via bed escorted by CNAs report provided from TH RN ([facility]) to RS RN (Dialysis) tele industrial hygiene technician informed of temp room location pt alert, oriented, denies complaints film painter at bedside; will cont to monitor
--- NOTE | 2017-04-29 09:39 | PCM.PNNEPH ---
Subjective Date of Service Apr 29, 2017 Subjective Patient is back to her neurological baseline. She is alert and oriented and is having no further myoclonic jerks or difficulty with ambulation. Exam Vital Signs Vital Sign - Last Date Time Temp Pulse Resp B/P Pulse Ox O2 Delivery O2 Flow Rate FiO2 04/29/17 09:24 88 04/29/17 08:00 36.7 14 113/77 100 Room Air Intake and Output 04/28/17 04/28/17 04/29/17 Cumulative From/Thru 15:00 23:00 07:00 04/27/17 21:00 - 04/29/17 05:01 Intake Total 0 ml Output Total 3500 ml 3500 ml Balance -3500 ml -3500 ml Intake Oral 0 ml Output Urine Total 0 ml Ultrafiltrate 3500 ml 3500 ml Exam Neck is supple without adenopathy, thyromegaly, or jugular venous distention. Lungs are clear to auscultation. Heart is regular and rhythmical with a soft systolic murmur. Abdomen soft without any tenderness rebound guarding masses or hepatosplenomegaly. Lower extremities shows some mild pitting edema up to the distal thigh bilaterally. Lab and Diagnostics Result Diagram: 04/29/17 0324 04/29/17 0324 X-Rays, CTs and MRIs CT BRAIN WITHOUT CONTRAST IMPRESSION: Normal for age, source of confusion is not seen. Dictated by: Octavio Garcia M.D. on 04/27/2017 at 19:03 X-RAY CHEST ONE VIEW, PORTABLE IMPRESSION: Normal for age except for reduced inspiratory volume. Dictated by: Octavio Garcia M.D. on 04/27/2017 at 19:02 . 12-lead ECG Normal sinus rhythm. Rate 70. No abnormalities. No change from previous ECG on 08/07/16 Additional Diagnostics DateTimeAnalyzed 19:19:00 -_ pH ____7.469 - pCO2 ___38.9__ -mmHg pO2 111 -mmHg HCO3- ___27.9__ -mmol/L ABE ____4.4__ -mmol/L tHb ___12.2__ -g/dL O2Hb ___96.2__ -% COHb ____1.7__ -% MetHb ____0.9__ -% sO2 ___98.8__ -% FIO2 ___21.0__ -% Drawn By _LAB TECH - Date/Time Notified____ 19:24:00 -_ Notified Whom LILIYA, MEI -____ B 761 -mmHg tO2 ___16.7__ -Vol% Gustavo test N/A - Plan Impression Impression #1 acute extrapyramidal/neuroleptic syndrome which is resolved #2 end -stage renal disease dialysis dependent #3 autosomal dominant polycystic kidney disease #4 status post nephrectomy #5 abdominal hernia repair with mesh implantation. Recommendations #1 the patient is ultrafiltrating today for 3 hours on a max dialyzer, 2000 heparin 500 now and will try to take 2-4 L as tolerated. Follow cyst today she can be discharged. Tacho Ac DO Apr 29, 2017 09:39
--- NOTE | 2017-04-29 09:58 | PCM.DIMED ---
Maxim Joseph DO 04/29/17 0958: Discharge Instructions Date of Service Apr 29, 2017 Dates of Hospitalization Apr 27, 2017 at 20:16 Discharge Diagnosis Discharge Diagnosis Encephalopathy. Acute. Present on admission. Improved Chronic renal failure on dialysis. Present on admission. Ongoing Hypertension. Present on admission. Ongoing Anemia. Present on admission. Ongoing Chronic pain secondary to multiple orthopedic issues and recent surgery, POA, acute on chronic. Active Hypercalcemia and hyperphosphatemia of renal failure, POA, chronic. Active Depression and anxiety, POA, chronic. Stable . Diet Discharge Diet: Renal Diet Activity Discharge Activity: Limited until seen by PCP Call your provider Call your provider for: Fever or Chills, Shortness of breath, Bleeding, Chest pain, Vomitting, Excessive diarrhea, Weakness (unilateral) Patient Instructions Patient Instructions In the future please clear all medications outside you currently prescribed regimen before taking anything. Many medications are metabolized in your body by the kidneys, which obviously for means that they are not metabolized at all except by dialysis. Furthermore, some medications become more toxic and less effective over time, so medications will provide little benefit and great potential for toxicity. Follow-up plan Please follow up with your primary care provider Dr. Urias within 2 weeks for further evaluation. Follow-up Provider: Alfredito Urias MD Follow-up with PCP in: 2 weeks Jennifer Richards DO 04/29/17 1901: Discharge Instructions Attending's Statement The patient was seen and examined together with Dr. Joseph on 04/29/17 and I agree with the history, exam and plan as outlined in the note above. Maxim Joseph DO Apr 29, 2017 09:58 Jennifer Richards DO Apr 29, 2017 19:01
--- NOTE | 2017-04-29 11:43 | NUR ---
Dialysis note 3 hrs PUF tx 2700ml net UF removed. BP down to 87/43 with 10 mins of tx and tx ended at that time See DTR for complete vitals. 2 15 g needles to ALYSSA fistula. QB 300 Sureseals/clamps X10 mins post tx Report given and pt returned to floor stable.
--- NOTE | 2017-04-29 12:00 | NUR ---
pt returned to [facility] post DIALYSIS at ~1145 via bed escorted by CNAs report returned to TH RN from RS telephone services sales representative retail maintenance technician informed of return to unit see glue maker note, interventions, and/or graphic flow for treatment details
--- NOTE | 2017-04-29 14:03 | NUR ---
Hemodialysis this morning on MOC unit. Vital signs stable, afebrile, sinus rhythm on tele. Up in room indep, eating well, indicates good pain control with oxycodone as ordered. Alert/oriented and in good spirits, does not appear somnolent. Instructions discussed for follow-up, medications and care. Discharging home with her mom.
--- NOTE | 2017-04-29 14:53 | PCM.PROC ---
Procedure Note Date of Service: Apr 29, 2017 Procedure Details: Procedure: Osteopathic Manipulative Treatment Subjective: Patient complained of longstanding lower back pain for several months which originated with her large BL kidneys, this pain has been worse in the hospital for the past 4 days. The patient states that walking around helps the pain and lying in bed all day worsens the pain. Risks and benefits of OMT were explained to the patient and verbal consent obtained. Osteopathic Structural Exam: Thoracics: T6-T10 NRrSl Lumbars: L1-L4 NRrSL, hypertonic paraspinals L>R Abdomen: Diaphragmatic restriction on the right Pelvis: R anterior ASIS Sacrum: BL SI joint compression R>L Upper extremity: Latissimus dorsi hypertonicity on the right Lower extremity: Psoas hypertonicity on the right greater than left Patient responded well to treatment. Stated that she felt that her back felt looser and she felt greater mobility overall. Osteopathic treatment modalities used: Myofascial release, Muscle Energy, BLT, visceral technique, and soft tissue technique Attending Statement The patient was seen and examined together with Dr. Joseph on 04/29/17 and I have added additional information to the note above. Jennifer Richards DO Apr 29, 2017 14:52 Maxim Jsoeph DO Apr 29, 2017 15:20
--- NOTE | 2017-04-29 15:12 | PCM.DC.MED ---
Discharge Summary Date of Service Apr 29, 2017 Dates of Hospitalization Date of Hospital Admission Apr 27, 2017 at 20:16 Date of Discharge: Apr 29, 2017 Providers: Admitting Physician: Yehuda Santamaria MD Primary Care Physician: Alfredito Urias MD Attending Physician: Yehuda Santamaria MD Diagnosis at Time of Discharge Diagnosis at Time of Discharge Encephalopathy. Acute. Present on admission. Improved Chronic renal failure on dialysis. Present on admission. Ongoing Hypertension. Present on admission. Ongoing Anemia. Present on admission. Ongoing Chronic pain secondary to multiple orthopedic issues and recent surgery, POA, acute on chronic. Active Hypercalcemia and hyperphosphatemia of renal failure, POA, chronic. Active Depression and anxiety, POA, chronic. Stable . Consultations Nephrology with Dr. Ac Procedures XRay, CTs & MRIs CT BRAIN WITHOUT CONTRAST IMPRESSION: Normal for age, source of confusion is not seen. Dictated by: Octavio Garcia M.D. on 04/27/2017 at 19:03 X-RAY CHEST ONE VIEW, PORTABLE IMPRESSION: Normal for age except for reduced inspiratory volume. Dictated by: Octavio Garcia M.D. on 04/27/2017 at 19:02 . ECG 12 Lead Normal sinus rhythm. Rate 70. No abnormalities. No change from previous ECG on 08/07/16 Other Diagnostics DateTimeAnalyzed 19:19:00 -_ pH ____7.469 - pCO2 ___38.9__ -mmHg pO2 111 -mmHg HCO3- ___27.9__ -mmol/L ABE ____4.4__ -mmol/L tHb ___12.2__ -g/dL O2Hb ___96.2__ -% COHb ____1.7__ -% MetHb ____0.9__ -% sO2 ___98.8__ -% FIO2 ___21.0__ -% Drawn By _LAB TECH - Date/Time Notified____ 19:24:00 -_ Notified Whom SIGIFREDO LOVELL -____ B 761 -mmHg tO2 ___16.7__ -Vol% Gustavo test N/A - Brief History Taken from History and Physical Composed by Dr. Isaak Burgos 04/27/17 Ms. Cuellar is a 46-year-old female with past medical history of hypertension and renal failure s/p bilateral nephrectomy currently on HD Friday who presents to the ED via EMS secondary to confusion 1 day. Patient lives with her grandfather, last known normal was yesterday 2000 hrs, when she went to sleep. Patient states she took a baclofen last night which had previously been prescribed to her in addition to her regular medications which include pramipexole, venlafaxine, gabapentin bupropion and oxycodone. She was reported to have been up and down all night, kept rolling off the couch of which she sleeps. Today she was found to be shaky and confused by EMS which is reported to be far off her baseline. She last got her HD on Friday. She denies fever/chills headache, visual disturbances, nausea/vomiting, extremity numbness or weakness, shortness of breath, cough, chest pain, change in bowel habits. Patient is anuric at baseline secondary to bilateral nephrectomy. Patient daughter at bedside and provides much of the history of present illness. In the ED EKG showed no abnormalities, CT brain and chest x-ray unremarkable. Lab values shows mild anemia, normal ammonia level, BUN/creatinine 36/8.45. Dr. Johansen of nephrology consulted. . Hospital Course 46 year old female with PMH of hypertension with reported brain aneurysm, renal failure on HD admitted for encephalopathy likely secondary to polypharmacy with the patient having taken some reportedly Baclofen in the setting of BL nephrectomy and thus no renal clearance of medication. The patient improved markedly following dialysis on day 1, and following dialysis on day 2 the patient's mentation improved to baseline. For full hospital course see below: Encephalopathy. Acute. Present on admission. Improved - Most likely secondary to polypharmacy - baclofen, oxycodone, pramipexole, venlafaxine - Last HD Friday04/25/2017 prior to admission - No evidence for infection - Hold home meds - Nephrology consult - Dialysis 04/28/17 with profound improvement of mental status - Repeat dialysis today 04/29/2017 Chronic renal failure on dialysis. Present on admission. Ongoing - Nephrology consult for hemodialysis Hypertension. Present on admission. Ongoing - On admit patient mildly hypertensive, since trended back to normal - Patient denies home medications for hypertension - At time of dictation Pt. normotensive - Unable to achieve IV access - We will closely monitor for possible IJ placement Anemia. Present on admission. Ongoing - Most likely dilutional - Continued to monitor Chronic pain secondary to multiple orthopedic issues and recent surgery, POA, acute on chronic. Active -Continued home Oxycodone -Continued home Gabapentin Hypercalcemia and hyperphosphatemia of renal failure, POA, chronic. Active -Continued home Cinacalcet -Continued home Sevelamer Depression and anxiety, POA, chronic. Stable -Resumed home Bupropion tomorrow AM -Resumed home Venlafaxine tomorrow AM . Exam Vital Signs (Last) Date Time Temp Pulse Resp B/P Pulse Ox O2 Delivery O2 Flow Rate FiO2 04/29/17 12:01 37.1 104 16 109/72 94 Room Air Exam Gen: A/O x3 pleasant, NAD Neck: Supple, non tender, no thyromegaly, Full ROM HEENT: PERRL, EOMI, no scleral icterus, no conjunctival pallor CV: RRR, dialysis fistula trill is audible on cardiovascular exam beast heard at the right sternal border, no rubs or gallops Lungs: Lungs CTA BL, no wheezing rales or rhonchi Abd: Soft, non tender, no organomegaly, non distended, BS + 4Q Extr: Dialysis fistula in left antecubital area with audible and palpable trill , no clubbing or cyanosis. BL UE edema L>R Neuro: CN 2-12 grossly intact, no focal neurologic deficit Psych: normal mood and affect. . Test 04/27/17 19:18 04/29/17 03:24 Lactic Acid Level 0.5mmol/L (0.4-2.0) Ammonia 18ug/dL (18-53) White Blood Count 10.2th/mm3 (3.8-10.1) Red Blood Count 3.13mil/mm3 (3.90-5.20) Hemoglobin 10.4g/dL (12.0-15.6) Hematocrit 34.3% (35.0-46.0) Mean Corpuscular Volume 109.6fL (81-100) Mean Corpuscular Hemoglobin 33.2pg (27.0-35.0) Mean Corpuscular Hemoglobin Concent 30.3% (32.0-37.0) Red Cell Distribution Width 15.4% (12.3-15.4) Platelet Count 264bil/L (150-400) Neutrophils (%) (Auto) 70.5% (40-74) Lymphocytes (%) (Auto) 18.3% (14-46) Monocytes (%) (Auto) 4.2% (4-12) Eosinophils (%) (Auto) 5.6% (0-5) Basophils (%) (Auto) 0.7% (0-3) Prothrombin Time 12.0sec (8.1-12.5) Prothromb Time International Ratio 1.12ratio Sodium Level 138mEq/L (134-144) Potassium Level 4.3mEq/L (3.5-5.2) Chloride Level 92mEq/L (97-108) Carbon Dioxide Level 26mmol/L (18-29) Blood Urea Nitrogen 25mg/dL (6-24) Creatinine 6.69mg/dL (0.57-1.00) Estimat Glomerular Filtration Rate 9mL/min (>59) Glucose Level 89mg/dL (60-99) Calcium Level 9.4mg/dL (8.5-10.1) Phosphorus Level 4.1mg/dL (2.5-4.9) Magnesium Level 2.0mg/dL (1.6-2.6) Total Bilirubin 0.3mg/dL (0.0-1.2) Aspartate Amino Transf (AST/SGOT) 22U/L (0-50) Alanine Aminotransferase (ALT/SGPT) 11U/L (0-32) Alkaline Phosphatase 220U/L (25-150) Total Protein 6.1g/dL (6.4-8.4) Albumin 3.5g/dL (3.4-5.0) Discharge Medications Discharge Medications Bupropion ER (Wellbutrin SR) 150 Mg Tablet.er 150 MG PO DAILY (Reported) Cinacalcet (Sensipar) 30 Mg Tablet 60 MG PO DAILY (Reported) Gabapentin (Gabapentin) 300 Mg Capsule 300 MG PO DAILY (Reported) Omeprazole (Omeprazole) 20 Mg Capsule.dr 20 MG PO DAILY (Reported) Sevelamer Carbonate (Renvela) 800 Mg Tablet 800 MG PO TID (Reported) Venlafaxine ER (Venlafaxine ER) 150 Mg Cap.er.24h 150 MG PO DAILY (Reported) As needed Fluticasone Propionate (Fluticasone Propionate Nasal) 16 Gm [place].susp 1 SPRAY NS BID PRN PRN Secretion Control (Reported) Ondansetron (Zofran) 8 Mg Tablet 8 MG PO Q8H PRN PRN For Nausea (Reported) oxyCODONE (oxyCODONE) 5 Mg Tablet 10-20 MG PO Q4H PRN PRN For Moderate Pain Prescribed by: MYRA LIGHT Followup Plan Disposition: Home with no needs Follow-up plan Please follow up with your primary care provider Dr. Urias within 2 weeks for further evaluation. Discharge Diet: Renal Diet Discharge Activity: Limited until seen by PCP Patient Instructions In the future please clear all medications outside you currently prescribed regimen before taking anything. Many medications are metabolized in your body by the kidneys, which obviously for means that they are not metabolized at all except by dialysis. Furthermore, some medications become more toxic and less effective over time, so medications will provide little benefit and great potential for toxicity. Follow-up Provider: Alfredito Urias MD Follow-up with PCP in: 2 weeks Time spent Time spent greater than 35 minutes Attending Statement The patient was seen and examined together with Dr. Joseph on 04/29/17 and I have added additional information to the note above. copies to: Alfredito Urias MD, David E DO Apr 29, 2017 15:12 Jennifer Richards DO Apr 29, 2017 18:11
--- NOTE | 2017-04-29 16:41 | NUR ---
Found phone medication reconciliation technician in patient's room after being discharged to home. Attempted to contact by phone, did not leave message on answering machine for patient privacy. Mortgage Funder is in a bag with her name on it at the spray unit feeder's desk/CCU.
== END 2017-04-29 13:45 | disposition home or self-care (01) | DRG 91 ==
LOC: SED 17:39 → PCC 20:16 → OBSVTOIN 20:16
PROVIDERS: ADMIT Hospitalist; ATTEND Hospitalist
PROC: 4A033B1 Measurement of Arterial Pressure, Peripheral, Percutaneous Approach (ICD-10-PCS; 2017-04-27)
PROC: 5A1D60Z (ICD-10-PCS; 2017-04-28)
PROC: 7W0 Osteopathic, Anatomical Regions, Treatment (ICD-10-PCS; principal; 2017-04-29)
PROC: 7W0 Osteopathic, Anatomical Regions, Treatment (ICD-10-PCS; 2017-04-29)
PROC: 7W02X1Z Osteopathic Treatment of Thoracic Region using Fascial Release (ICD-10-PCS; 2017-04-29)
PROC: 7W04X1Z Osteopathic Treatment of Sacrum using Fascial Release (ICD-10-PCS; 2017-04-29)
PROC: 7W05X1Z Osteopathic Treatment of Pelvis using Fascial Release (ICD-10-PCS; 2017-04-29)
PROC: 7W03X1Z Osteopathic Treatment of Lumbar Region using Fascial Release (ICD-10-PCS; 2017-04-29)
PROC: 7W06X1Z Osteopathic Treatment of Lower Extremities using Fascial Release (ICD-10-PCS; 2017-04-29)
DX: G92 Toxic encephalopathy (principal); N18.6 End stage renal disease; I13.11 Hypertensive heart and chronic kidney disease without heart failure, with stage 5 chronic kidney disease, or end stage renal disease; Q61.2 Polycystic kidney, adult type; G47.33 Obstructive sleep apnea (adult) (pediatric); D63.8 Anemia in other chronic diseases classified elsewhere; E83.52 Hypercalcemia; E83.39 Other disorders of phosphorus metabolism; T40.2X5A Adverse effect of other opioids, initial encounter; T42.8X5A Adverse effect of antiparkinsonism drugs and other central muscle-tone depressants, initial encounter; T43.215A Adverse effect of selective serotonin and norepinephrine reuptake inhibitors, initial encounter; G89.29 Other chronic pain; Z99.2 Dependence on renal dialysis; Z90.5 Acquired absence of kidney

== ENCOUNTER 2017-04-30 16:08 | Inpatient (IN) | payer MEDICARE ==
[~2017-04-30] VITALS: Ht 154.9 cm; Wt 93.1 kg
[2017-04-30] VITALS (14 sets, daily range): BP systolic 65–107; BP diastolic 32–56; PULSE 66–97; RESP 11–20; O2SAT 91–99
[~2017-04-30 16:08] MED LIST changes: -POLY17PO6 PO
--- NOTE | 2017-04-30 16:19 | ED.REPORT ---
HPI-General Illness Date of Service Apr 30, 2017 ED Provider: Troy Trevizo MD A 46 year old female with a history of hypertension, ESRD on hemodialysis, polycystic kidney disease s/p bilateral nephrectomies and recent complex hernia repair (03/2017) presents to the ED with asymptomatic low blood pressure that began this afternoon. Patient was recently seen in the ED and admitted for observation following an episode of confusion on 04/27. She was discharged yesterday (04/30) in good condition with a BP of 109/72. She reports recent fever 3 days ago that has since resolved. Her last dialysis treatment was on 04/28 and the patient had fluid removed on 04/29. She denies any current chills, nausea, vomiting, dizziness or changes in appetite or fluid intake. She took 1 oxycodone this morning for post-operative abdominal pain. Patient denies any recent medication changes. Nursing Notes Stated Complaint: LOW BLOOD PRESSURE Chief Complaint: General Complaint Nursing Notes Reviewed: Yes Allergies: Coded Allergies: vancomycin (Verified Allergy, Intermediate, itch, 04/30/17) Scheduled Bupropion ER (Wellbutrin SR) 150 Mg Tablet.er 150 MG PO DAILY Cinacalcet (Sensipar) 30 Mg Tablet 60 MG PO DAILY Gabapentin (Gabapentin) 300 Mg Capsule 300 MG PO DAILY Omeprazole (Omeprazole) 20 Mg Capsule.dr 20 MG PO DAILY Sevelamer Carbonate (Renvela) 800 Mg Tablet 800 MG PO TID Venlafaxine ER (Venlafaxine ER) 150 Mg Cap.er.24h 150 MG PO DAILY Scheduled PRN Fluticasone Propionate (Fluticasone Propionate Nasal) 16 Gm [place].susp 1 SPRAY NS BID PRN PRN Secretion Control Ondansetron (Zofran) 8 Mg Tablet 8 MG PO Q8H PRN PRN For Nausea oxyCODONE (oxyCODONE) 5 Mg Tablet 10-20 MG PO Q4H PRN PRN For Moderate Pain General Time Seen by MD: 16:18 Chief Complaint Other (Low Blood Pressure) Hx Obtained From: Patient Arrived By: Walk-in Sudden in Onset?: No Onset Occurred: 1 - 4 hours ago Symptom Duration: Since onset Associated with: Reports: Abdominal pain (post op pain), Fever, Denies: Cough, Nausea, Vomiting Pertinent Negative: Pt denies other symptoms Recent Healthcare: No recent doctor visit, No recent hospitalization Past Medical History Past Medical History Notes: Admit for hernia repair March 2017 Historic Interpreter: Dr. Virgen PCP: Dr. Renea Wilhelm Past Medical History Hypertension Polycystic kidney Migraines Hx of cerebral aneurysms Chronic renal failure on dialysis History of obstructive sleep apnea Hernia Reports: Hypertension Past Surgical History Tubal ligation Uterine ablation Bladder sling Left AV fistula Bilatereal nephrectomys Hernia repair Reports: Tubal ligation Family History Father, at 52 from cerebral aneurysm Mother is 67 with CAD Smoking History Current Every Day Smoker Social History Alcohol Use: Denies alcohol use Drug Use: Denies drug use Other Social History: Good social support, Local resident Occupation On disability Ambulatory Status Independent Review of Systems Denies changes in appetite or fluid intake Full Review of Systems Constitutional: Reports: Fever (since resolved), Denies: Chills GI: Reports: Abdominal pain (post-op ), Denies: Nausea, Vomiting Neurologic: Denies: Dizziness Complete sys rev & neg: except as marked. Physical Exam Vital Signs Vital Signs Date Time Temp Pulse Resp B/P Pulse Ox O2 Delivery O2 Flow Rate FiO2 04/30/17 20:53 67 20 78/45 94 Room Air 04/30/17 20:30 73 86/50 04/30/17 20:05 69 19 103/53 99 Room Air 04/30/17 19:35 74 16 107/53 99 Room Air 04/30/17 19:21 78 20 99/47 95 Room Air 04/30/17 18:42 72 16 68/32 95 04/30/17 18:15 79 15 68/39 93 04/30/17 17:40 81 11 65/32 91 Room Air 04/30/17 16:55 94 20 71/46 94 04/30/17 16:45 95 19 85/49 93 04/30/17 16:11 36.5 97 15 81/56 98 Room Air Initial VS: Reviewed Neck: Supple, Non-tender, Full range of motion Extremities: Vascular intact, Neuro intact, No swelling, No tenderness Skin: Warm, Dry, No cyanosis Neurologic: Alert, Oriented, Nonfocal Psychiatric: Mood/affect normal, Behavior normal, Normal thought content General/Constitutional: Awake, Alert, No acute distress Head / Eyes: Atraumatic, Normocephalic, PERRL ENT: Atraumatic, Airway patent Mouth: Positive: Mucous membranes dry Respiratory / Chest: Atraumatic, Breath sounds NL, Breath sounds = bilat, No respiratory distress Cardiovascular: Heart rate NL, Regular rhythm, Heart sounds NL, No gallop, No murmurs, No rubs CARDIO: Hypotensive Abdomen: Atraumatic, Soft, BS normoactive, No distention ABDOMEN: Midline scar across the abdomen - healing well Multiple drain sites - one is erythematous without tenderness or discharge Interpretation & Diagnostics Lab Results Interpretation Result Diagram: 04/30/17 1630 04/30/17 1630 Test 04/30/17 16:30 White Blood Count 9.3th/mm3 (3.8-10.1) Red Blood Count 3.09mil/mm3 (3.90-5.20) Hemoglobin 10.2g/dL (12.0-15.6) Hematocrit 33.5% (35.0-46.0) Mean Corpuscular Volume 108.4fL (81-100) Mean Corpuscular Hemoglobin 33.0pg (27.0-35.0) Mean Corpuscular Hemoglobin Concent 30.4% (32.0-37.0) Red Cell Distribution Width 15.5% (12.3-15.4) Platelet Count 285bil/L (150-400) Neutrophils (%) (Auto) 67.9% (40-74) Lymphocytes (%) (Auto) 17.4% (14-46) Monocytes (%) (Auto) 3.9% (4-12) Eosinophils (%) (Auto) 9.5% (0-5) Basophils (%) (Auto) 0.9% (0-3) Sodium Level 137mEq/L (134-144) Potassium Level 4.3mEq/L (3.5-5.2) Chloride Level 88mEq/L (97-108) Carbon Dioxide Level 25mmol/L (18-29) Blood Urea Nitrogen 49mg/dL (6-24) Creatinine 10.35mg/dL (0.57-1.00) Estimat Glomerular Filtration Rate 6mL/min (>59) Glucose Level 121mg/dL (60-99) Calcium Level 9.3mg/dL (8.5-10.1) Total Bilirubin 0.3mg/dL (0.0-1.2) Aspartate Amino Transf (AST/SGOT) 17U/L (0-50) Alanine Aminotransferase (ALT/SGPT) 10U/L (0-32) Alkaline Phosphatase 201U/L (25-150) Total Protein 7.2g/dL (6.4-8.4) Albumin 4.1g/dL (3.4-5.0) ECG Interpretation ECG Interpretation: Sinus Rhythm Rate 85 Time: 17:27 Interpreted by: ED physician Normal ECG Interpretation: No change from prior ECGs (04/27/17) X-Ray Chest Interpretation Chest Xray Interpretation: IMPRESSION: No acute cardiopulmonary disease process. Dictated by: Maria Castro MD, PhD on 04/30/2017 at 19:12 Interpretation / Wet Read by: Interpret - Radiologist Chest Xray Interpretation: IMPRESSION: Central line in place Interpretation / Wet Read by: Wet read ED physician Procedures Central Line Placement Central Line Placement Note: Prior to procedure BP = 90/51 Time: 23:33 Procedure Performed by: ED physician Consent / Setup / Site Prep: Informed consent provided, Consent from patient , Time-out performed, Oxygen administered, Pulse oximeter applied, pharmaceutical analyst applied, Hand hygiene observed, Standard surgical scrub, Max barrier precaution, Sterile drapes applied, Position Trendelenburg Skin Preparation Agent: Hibiclens - Chlorhexidine Procedural Sedation/Analgesia: Analgesia: Fentanyl Side / Location / Ultrasound: Internal jugular right, Ultrasound assisted Catheter / Lumen / Technique: Seldinger technique Post-Procedure / Complications: Antibiotic oint applied, Dressing placed, Condition improved, Tolerated procedure well, Patient stable Re-Eval/Medical Decision Med Decision/Clinical Course 46-year-old female dialysis patient with persistent hypotension. She was just in the hospital and had some extra volume taken off but did not exhibit hypotension on discharge. Here she mostly feels well however when her pressures were in the 60s, she did appear drowsy and fatigued. These low pressures were confirmed manually with a blood pressure cuff by myself. The cultures have been sent, lactate was mildly elevated, patient makes no urine. I doubt this is a urinary tract infection and this does not appear to be cardiogenic shock. There are no acute EKG changes, chest x-ray does not suggest pulmonary edema and initial troponin is elevated but that is hardly surprising in this setting. She received a total of 2 L of crystalloid here in the emergency department, given cautiously as 500 mL boluses. IV access was very problematic in this patient, I note that during her recent admission there were unable to actually establish an IV. Here we will just get a very small peripheral line in this allowed us to hydrate her however would clearly not be appropriate for more acute situation. Nonetheless we are unable to keep her blood pressure above 90 systolic. After discussion with the patient, a central white line was placed in the right internal jugular. Given that no source of infection identified, we will not start antibiotics. Patient will be admitted to the hospitalist service. Time of Eval: 18:03 Re-Evaluation/Progress Note: Pt is resting comfortably but is reportedly "very sleepy". BP is currently 67/31. Time of Eval: 19:02 Re-Evaluation/Progress Note: Unable to place the IV Time of Eval: 19:21 Patient Status: Condition improved Re-Evaluation/Progress Note: Current BP = 99/62 Time of Eval: 20:40 Re-Evaluation/Progress Note: Current BP = 86/50 Time of Eval: 20:40 Re-Evaluation/Progress Note: Current BP = 76/55 Time of Eval: 23:12 Patient Status: Condition improved Re-Evaluation/Progress Note: BP = 89/52 She is given the option to place a central line, she would like the procedure Patient is informed of the plan to admit for hypotension. All questions about the plan are addressed. She understands and agrees with the current plan. Time of Eval: 23:33 Patient Status: Condition improved Re-Evaluation/Progress Note: Central line is placed. Pt tolerates the procedure well. Consultation #1: Referral / Consult Name: Tacho Ac DO Consulted With: Nephrology Call Returned at: 18:11 Mine Wirer: Agrees with eval, Agrees with plan Consultation #2: Referral / Consult Name: Vibha Flores DO Consulted With: Hospitalist Call Returned at: 20:41 Mine Wirer: Will see patient, Agrees with eval, Agrees with plan, Accepts admit Counseled Regarding: Diagnosis, Lab results, Need for admission Discharge & Departure Primary Impression: Hypotension Hypotension type: unspecified hypotension type Qualified Code: I95.9 - Hypotension, unspecified Disposition: ADMITTED TO HOSPITAL Discharge Condition All VS Reviewed: Yes Condition: Stable Referrals: Alfredito Urias MD (PCP) Crit Care Except Billable Proc Time Spent: 75-104 minutes Services Performed: Patient management by me, Time spent at bedside, Reviewing test results, Reviewing imaging, Discussing patient care, Documentation in record, Time with fam/surrogate Scribe Attestation Portions of this note were transcribed by Titus Stein. I, Dr. Trevizo personally performed the history, physical exam and medical decision-making; I reviewed and confirmed the accuracy of the information in the transcribed note. Signed by: Monica Torre, 05/01/17 0033. copies to: Alfredito Urias MD, Donald L MD Apr 30, 2017 16:19 TITUS STEIN Apr 30, 2017 16:45
[2017-04-30] MEDS ORDERED: 0.9% Sodium Chloride 500 ML IV ONE ×4 (16:45→20:45)
[2017-04-30 17:01] LABS: BASOPHILS % (AUTO) 0.9 % (0-3); EOSINOPHILS % (AUTO) 9.5 % (0-5); MONOCYTES % (AUTO) 3.9 % (4-12); Mean Corpuscular Volume 108.4 fL (81-100); NEUTROPHILS % (AUTO) 67.9 % (40-74); Platelet Count 285 bil/L (150-400)
[2017-04-30 17:14] LABS: TROPONIN T 0.022 ug/L (0.0-0.011)
[2017-04-30 17:25] LABS: Magnesium 2.4 mg/dL (1.6-2.6)
--- NOTE | 2017-04-30 19:14 | DRSVH ---
PROCEDURE: X-RAY CHEST ONE VIEW, PORTABLE ([id number]) INDICATIONS: hypotension TECHNIQUE: One view of the chest was acquired. COMPARISON: [facility], CR, XR CHEST 1VW (PORTABLE), 04/27/2017, 17:59. FINDINGS: Surgical changes and devices: None. Lungs and pleura: No pleural effusions or pneumothorax. Lungs are clear. Mediastinum: Mediastinal contours appear normal. Heart size is normal. Bones and chest wall: No suspicious bony lesions. Overlying soft tissues appear unremarkable. IMPRESSION: No acute cardiopulmonary disease process. Dictated by: Maria Castro MD, PhD on 04/30/2017 at 19:12 Approved by: Maria Castro MD, PhD on 04/30/2017 at 19:12
[2017-04-30] MEDS ORDERED: fentaNYL-PF 50 mCg/mL 2 mL Inj IVPUSH ONE (21:35)
[2017-04-30] MEDS ORDERED: Ondansetron 2 mg/mL 2 mL Inj IVPUSH PRN (21:45)
[2017-04-30] MEDS ORDERED: Alum-Mag Hydrox-Simeth 30 mL Suspension PO PRN (21:45)
[2017-04-30] MEDS ORDERED: Senna-Docusate 8.6-50 mg Tablet PO PRN (21:45)
[2017-04-30] MEDS ORDERED: Polyethylene Glycol (PEG) 17 Gm Powder PO PRN (21:45)
--- NOTE | 2017-04-30 22:24 | PCM.HPMED ---
Subjective Date of Service Apr 30, 2017 Primary Provider: Admitting Physician: Vibha Flores DO Primary Care Physician: Alfredito Urias MD Attending Physician: Vibha Flores DO Chief Complaint: Hypotension History of Present Illness: Ms. Cuellar is a 46-year-old female with past medical history of hypertension and renal failure s/p bilateral nephrectomy currently on HD Friday and recent complex hernia repair 04/12/2017 who presented to the ED secondary to hypotension 1 day. She was discharged from [facility] yesterday after a 3 day hospital stay for encephalopathy secondary to baclofen ingestion. She did receive hemodialysis on 04/28/2017 and had fluid removed on 04/29/2017. Patient routinely takes her blood pressure at home and noticed today that it was low with reported value of 70s over 40s. She called her doctor who informed her that she was not a candidate for dialysis today secondary to this hypotension. She was instructed to present to the ED. Upon discharge yesterday her blood pressure was 109/72, she reports no symptoms of hypotension , denies headache, visual disturbances, dizziness, chest pain, shortness of breath, nausea vomiting extremity numbness tingling or weakness. Patient is anuric baseline. She states that during her hospital stay she developed slight fevers that have since resolved. She denies any additional medication use aside from those regular prescribed, took 1 oxycodone this morning for postoperative abdominal pain. In the ED blood pressures ranged from 99/47-78/45. At time of interview blood pressure 120s over 80s. Patient remains asymptomatic. Patient received approximately 2 L normal saline. Lab values remarkable for mild anemia elevated BUN/creatinine, lactic acid of 2.3 alkaline phosphatase 201 and troponin 0.022. Central line placed. Review of Systems: A comprehensive review of systems was conducted with the patient and found to be negative except as above in the history of present illness. Allergies Coded Allergies: vancomycin (Verified Allergy, Intermediate, itch, 04/30/17) Home Medications Bupropion ER (Wellbutrin SR) 150 Mg Tablet.er 150 MG PO DAILY Cinacalcet (Sensipar) 30 Mg Tablet 60 MG PO DAILY Gabapentin (Gabapentin) 300 Mg Capsule 300 MG PO DAILY Omeprazole (Omeprazole) 20 Mg Capsule.dr 20 MG PO DAILY Sevelamer Carbonate (Renvela) 800 Mg Tablet 800 MG PO TID Venlafaxine ER (Venlafaxine ER) 150 Mg Cap.er.24h 150 MG PO DAILY PMH Hypertension Polycystic kidney Migraines Hx of cerebral aneurysms Chronic renal failure on dialysis History of obstructive sleep apnea Hernia Reports: Hypertension Surgical History Tubal ligation Uterine ablation Bladder sling Left AV fistula Bilatereal nephrectomys Hernia repair Family History Father, at 52 from cerebral aneurysm Mother is 67 with CAD Social History Hx Alcohol Use: No Hx Substance Use: No Hx Tobacco Use: Yes Smoking Status: Current Every Day Smoker Living Arrangement: with Family Exam Vital Signs Vital Sign - Last Date Time Temp Pulse Resp B/P Pulse Ox O2 Delivery O2 Flow Rate FiO2 04/30/17 21:19 66 81/56 04/30/17 20:53 20 94 Room Air 04/30/17 16:11 36.5 Exam General: No acute distress, well-developed, well-nourished, appropriately interactive HEENT: Normocephalic, atraumatic. External ears without defect. Pupils equal, round, and reactive to light and accommodation. Moist mucosa. Neck: Supple with full range of motion. No jugular venous distension. Cardiovascular: Regular rate and rhythm with no murmurs, rubs, or gallops appreciated Pulmonary: Clear to auscultation bilaterally with no crackles, wheezes, or rhonchi. Normal respiratory effort with no use of accessory muscles. Abdomen: Bowel tones present. Soft, nontender, nondistended. Extremities: Lower extremity edema to pretibial area Skin: Normal temperature, turgor, and texture Neurological: Cranial nerves grossly intact. Psychiatric: Normal mood and affect. Alert and oriented to person, place, and time. Lab and Diagnostics Result Diagram: 04/30/17 1630 04/30/17 1630 X-Rays, CTs and MRIs . X-RAY CHEST ONE VIEW, PORTABLE IMPRESSION: No acute cardiopulmonary disease process. Dictated by: Maria Castro MD, PhD on 04/30/2017 at 19:12 12-lead ECG Sinus rhythm rate of 85. No ST changes or T-wave inversions. No change from prior ECG Assessment & Plan 46 year old female with PMH of hypertension with reported brain aneurysm, renal failure on HD s/p bilateral nephrectomy and resected open hernia repair admitted for asymptomatic hypotension. Hypotension. Acute. Present on admission. Ongoing - Patient denies medications for hypertension - Patient normotensive at time of interview - Peripheral IV access difficult - Central line placement in ED - 2 L of fluid given in the ED - Hold additional fluid - Continue to monitor - Pt pressures continued to gradually fall with a nadire of 69 over 35 (MAP 42) , Levophed initiated with good effect Chronic renal failure on dialysis s/p bilateral nephrectomy. Present on admission. Ongoing - Nephrology consult for hemodialysis Anemia. Present on admission. Ongoing - Hemoglobin at or above level during previous admission - Stool guaiac - Continue to monitor Lactic acidosis. Present on admission. Resolved - Most likely secondary to hypovolemia - Initial lactic acid level 2.3, repeat level I.6 - Continue to monitor Elevated troponin. Present on admission. Improving - Most likely secondary to demand ischemia - Initial by 0.022, repeat value shows downward trend - No ST changes on ECG - No complaints of chest pain - Continue to monitor Chronic pain secondary to multiple orthopedic issues and recent surgery, POA, acute on chronic. Active - Hold home Oxycodone - Continue home Gabapentin tomorrow AM Hypercalcemia and hyperphosphatemia of renal failure, POA, chronic. Active -Resume home Cinacalcet tomorrow AM -Resume home Sevelamer tomorrow AM Depression and anxiety, POA, chronic. Stable -Resume home Bupropion tomorrow AM -Resume home Venlafaxine tomorrow AM Patient Status: Patient was admitted under inpatient status with expected length of stay greater than two midnights due to severity of presenting symptoms , risk of adverse event, and complexity of treatment plan. Pain Evaluation: Adequate Pain Control GI Prophylaxis: Proton Pump Inhibitor VTE Prophylaxis: Sub-Q Heparin (Unfractionated) Resuscitation Status: CPR: Attempt Resuscitation Attending Statement The patient was seen and examined together with house staff on 04/30/2017 and I agree with the history, exam and plan as outlined in the note above. GODWIN LINK DO Apr 30, 2017 22:23 Vibha Flores DO May 01, 2017 05:54 GI Prophylaxis: Proton Pump Inhibitor VTE Prophylaxis: Sub-Q Heparin (Unfractionated) Resuscitation Status: CPR: Attempt Resuscitation GODWIN LINK DO Apr 30, 2017 22:23
[2017-04-30 22:27] LABS: TROPONIN T 0.014 ug/L (0.0-0.011)
[2017-04-30 22:38] LABS: Magnesium 2.3 mg/dL (1.6-2.6)
[2017-05-01] VITALS (8 sets, daily range): BP systolic 78–108; BP diastolic 42–64; PULSE 66–90; RESP 16–20; O2SAT 94–99
--- NOTE | 2017-05-01 00:45 | NUR ---
Admit: Pt arrived from ED on gurney, ambulated to bed with minimal assist. Pt is a/o x 3, able to make needs known. BP's stable with MAP >60. Last BP 99/64. Pt is asymptomatic. Right IJ intact. Fistula to left arm. Belongings in closet, pt choosing to keep belongings in room. Pt stated last BM was on 04/25, senna given. Rating abd pain from previous surgery 01/03, denies need for pain med at this time. Pt is afebrile. RA sats 97%. Will continue to closely monitor blood pressures. Renal diet ordered.
[2017-05-01] MEDS: Heparin 5,000 Unit/mL Inj SUBQ SCH ×3 (00:56→15:42)
[2017-05-01 03:24] LABS: BASOPHILS % (AUTO) 0.7 % (0-3); EOSINOPHILS % (AUTO) 11.9 % (0-5); MONOCYTES % (AUTO) 4.1 % (4-12); Mean Corpuscular Hemoglobin 33.5 pg (27.0-35.0); Mean Corpuscular Volume 110.6 fL (81-100); NEUTROPHILS % (AUTO) 62.2 % (40-74); Platelet Count 255 bil/L (150-400)
[2017-05-01 03:51] LABS: Magnesium 2.4 mg/dL (1.6-2.6); Phosphorus 5.2 mg/dL (2.5-4.9)
[2017-05-01] MEDS: Norepineph 8,000 mCg/250 mL NS 8,000 MCG in IV Premix 1 EACH IV SCH (04:06)
--- NOTE | 2017-05-01 06:16 | NUR ---
Pt has become more hypotensive. Small dose of levophed started to keep MAP >60. Levophed effective. Running at 0.05 mcg with last BP of 103/62. Pt sleeping comfortably at this time. Will continue to monitor pt.
[2017-05-01] MEDS: Pantoprazole 40 mg ER24 Tablet PO SCH (08:05)
[2017-05-01] MEDS: Venlafaxine XR 75 mg ER24 Capsule PO SCH (08:06)
[2017-05-01] MEDS: buPROPion SR 150 mg ER12 Tablet PO SCH (08:08)
--- NOTE | 2017-05-01 09:00 | DRSVH ---
PROCEDURE: X-RAY CHEST ONE VIEW, PORTABLE ([id number]) INDICATIONS: post central line TECHNIQUE: One view of the chest was acquired. COMPARISON: [facility], CR, XR CHEST 2VW, 08/07/2016, 19:51. [facility], CR, XR CHEST 1VW (PORTABLE), 04/30/2017, 18:13. FINDINGS: Surgical changes and devices: Right IJ CVL has been placed tip projecting over the mid superior vena cava. Lungs and pleura: No pleural effusions or pneumothorax. Lungs are clear, aside from mild scarring a t the left lung base.. Mediastinum: Mediastinal contours appear normal. Heart size is normal. Bones and chest wall: No suspicious bony lesions. Overlying soft tissues appear unremarkable. IMPRESSION: No acute cardiopulmonary disease. Dictated by: Zhou No [facility] Interpreted: Maria Castro MD on 05/01/2017 at 8:58 Transcribed by: BALJEET on 05/01/2017 at 8:59 Approved by: Maria Castro MD, PhD on 05/01/2017 at 11:27
--- NOTE | 2017-05-01 10:42 | NUR ---
NUTRITION ASSESSMENT: ASSESS: Pt is a 46yo F admitted to CCU for post-dialysis hypotension. Pt is a re-admit and was discharged from the hospital yesterday. She is being followed by nephrology. Possible dialysis today. She is on a renal diet, no PO recorded yet. Pt was tolerating her diet well during last admit at 50-100%. PMHX: HTN, renal failure s/p bilateral nephrectomy, OSORIO LABS: Reviewed. Cl 96, Bun 51, party demonstrator 11.04, Glu 147, Ca 8.0, phos 5.2, alkphos 174, alb 3.2 MEDS: Reviewed. kyaw Perry GI: 0 BM SKIN: no major issues noted CURRENT WTS: 90.7kg, BMI 37.8kg/m2, IBW 47.7kg DIET: Renal, no PO yet EST. NEEDS: dialysis/ BMI Kcals: 1994-2269kcal/day (22-25kcal/kg) Pro: 75-95g/day (1.5-2.0g/kg) NUTRITION DIAGNOSIS: 1.) Increased energy/protein needs related to increased demand for nutrients as evidence by pt on chronic dialysis NUTRITION INTERVENTION: 1.) Continue current diet w/ Nepro @ L MONITOR / EVAL: PO, wt, GI, labs, POC, nutrition status, POC, will continue to monitor per moderate nutrition risk guidelines
--- NOTE | 2017-05-01 10:43 | NUR ---
Pain/O2/BP Patient complained of 5-6/10 abdominal/incisional pain from relatively recent abdominal surgery. Abdominal incision well closed and dry with abdominal binder per patients choice. Oxycodone 10mg OP was given X1. After about 30in patient stated pain decreased to 1-2/10 ranges and patient stated being comfortable. Oxygen saturation decreased from 95-96% while awake to 89-92% when asleep- patient was placed on 1L NC O2 with oxygen saturation increased to 94-955 while asleep. Levophed drip weaned off this morning vitals remained stable- see CCU flow sheet continue assessment.
--- NOTE | 2017-05-01 12:27 | NUR ---
Low BP resumed Levophed drip Within 1h after levophed drip was stopped SBP gradually decreased to low to mid 80s with MAP in low 50s- Levophed drip was resumed at 0.03mcg/kg/min with BP improving and MAP increased to over 60. Patient remained asymptomatic while on bed rest- MD was made aware- continue assessment.
--- NOTE | 2017-05-01 14:14 | NUR ---
Social Work: Initial Assessment D: Per EMR review, pt is a 46 year old female admitted for hypotension. pt is Medicare with no supplemental insurance. Pt does not have LTC insurance or VA benefits. PCP is Alfredito Urias MD. NOK is Sujey Elaine, mother, [phone]. Advanced directives information declined by pt when offered by REMITTANCE CLERK. Pt received information at last visit. Pt is a readmit and was discharged home on 04/30/17 with no sw needs. No readmit score entered at this time. REMITTANCE CLERK met with pt at bedside to discuss discharge planning and assess for unmet needs. 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 Pt continues to be I with ADLs and continues to drive. Pt has never had HH or skilled rehab. Pt states that she dialyzes at [facility]. She continues to deny any home needs but acknowledges that this is a readmit and is open to home health if MD feels that the pt needs supportive services from home health. Pt provided with HH CHOICE LIST- her preference would be [facility] if needed. A: Pt who is I at baseline. P: Anticipate pt to discharge home via POV (Mother) when medically stable; REMITTANCE CLERK to r/o possible home health for the pt due to recent readmission. ASAD Green Addendum: 05/01/17 at 1440 by TJ BOWERS SS Amended: Links added.
--- NOTE | 2017-05-01 14:40 | PCM.PNMED ---
Subjective Date of Service May 01, 2017 Subjective Patient states that she is almost entirely asymptomatic, she does express some mild degree of lightheadedness; but denies chest pain, dizziness, weakness, SOB , palpitations, orthostatic dizziness, dysuria, diarrhea, or abdominal pain. She reports that she ate a rather large meal during her last dialysis session. No significant overnight events Comprehensive ROS negative except as outlined above. Exam Vital Signs Vital Sign - Last Date Time Temp Pulse Resp B/P Pulse Ox O2 Delivery O2 Flow Rate FiO2 05/01/17 11:37 36.7 82 17 80/42 94 Nasal Cannula 1.00 Intake and Output 04/30/17 04/30/17 05/01/17 Cumulative From/Thru 15:00 23:00 07:00 04/30/17 16:11 - 05/01/17 06:18 Intake Total 2500 ml 19 ml 2519 ml Balance 2500 ml 19 ml 2519 ml Intake IV Total 2500 ml 19 ml 2519 ml Exam Gen: A/O x3 pleasant cooperative woman in NAD Neck: R IJ line in place and appears patent HEENT: PERRL, EOMI, no scleral icterus, no conjunctival pallor CV: RRR, dialysis fistula thrill audible on cardiac auscultation. Resp: Lungs CTA BL, no wheezing rales or rhonchi Abd: Soft, non tender, no organomegaly Extr: Left dialysis fistula with appropriate palpable and aubible trill, no signs or erythema or swelling around fistula, palpation of fistula is not painful Neuro: CN 2-12 grossly intact, no focal neurologic deficit Psych: Pleasant and appropriate mood and affect. IVs and Medications IV Fluids NS @ 10 ml hr TKO Medications Reviewed: Medications were reviewed in detail Lab and Diagnostics Item Value Date Time Piperacillin Sod/ 50 ml @ 100 mls/hr 08/12/16 1615 Tazobactam Sod ONCE ONCE/IV 08/12/16 1646 2.25 gm/Dextrose/ Water Red Blood Count 2.63 mil/mm3 L 05/01/175 Mean Corpuscular Volume 110.6 fL H 05/01/175 Mean Corpuscular Hemoglobin 33.5 pg 05/01/175 Mean Corpuscular Hemoglobin Concent 30.2 % L 05/01/17314 Red Cell Distribution Width 15.5 % H 6/8/17 0315 Neutrophils (%) (Auto) 62.2 % 05/01/17 031 Lymphocytes (%) (Auto) 20.6 % 05/01/17 031 Monocytes (%) (Auto) 4.1 % 05/01/17 031 Eosinophils (%) (Auto) 11.9 % H 05/01/17 031 Basophils (%) (Auto) 0.7 % 05/01/17314 Estimat Glomerular Filtration Rate 5 mL/min 05/01/17314 Calcium Level 8.0 mg/dL L 05/01/17314 Phosphorus Level 5.2 mg/dL H 05/01/17314 Total Bilirubin 0.2 mg/dL 05/01/17314 Magnesium Level 2.4 mg/dL 05/01/17314 Aspartate Amino Transf (AST/SGOT) 16 U/L 05/01/17314 Alanine Aminotransferase (ALT/SGPT) 8 U/L 05/01/17314 Alkaline Phosphatase 174 U/L H 05/01/17314 Troponin T 0.018 ug/L H 05/01/17 0215 Total Protein 5.3 g/dL L 05/01/17314 Albumin 3.2 g/dL L 05/01/17314 Free Thyroxine 0.93 ng/dL 05/01/17314 Thyroid Stimulating Hormone (TSH) 5.350 uIU/mL H 04/30/17 2150 Result Diagram: 05/01/1731405/01/17314 X-Rays, CTs and MRIs X-RAY CHEST ONE VIEW, PORTABLE IMPRESSION: No acute cardiopulmonary disease process. Dictated by: Maria Castro MD, PhD on 04/30/2017 at 19:12 12-lead ECG Sinus rhythm rate of 85. No ST changes or T-wave inversions. No change from prior ECG Assessment & Plan 46 year old female with PMH of hypertension with reported brain aneurysm, renal failure on HD s/p bilateral nephrectomy and resected open hernia repair admitted for asymptomatic hypotension. Patient has been maintained on Levophed, attempt to wean completely unsuccessful due to hypotension, patient currently being maintained on a small dose infusion of Levophed Hypotension. Acute. Present on admission. Ongoing - Likely secondary to intra-peridialysis hypotension, patient with an extra session of ultrafiltrate, and ate a large meal during 04/29/17 dialysis session - Also concern for overuse of prescription opiate analgesia from hernia repair surgery causing hypotension - Patient denies medications for hypertension - Patient normotensive at time of interview - Peripheral IV access difficult - Central line placement in ED - 2 L of fluid given in the ED - Held additional fluid beyond TKO - Continue to monitor - Pt pressures continued to gradually fall with a nadire of 69 over 35 (MAP 42) , Levophed initiated with good effect Chronic renal failure on dialysis s/p bilateral nephrectomy. Present on admission. Ongoing - Nephrology consult for hemodialysis - Per Nephrology will likely defer until usual dialysis date on 05/02/17 Anemia. Present on admission. Ongoing - Hemoglobin at or above level during previous admission - Stool guaiac - Continue to monitor Lactic acidosis. Present on admission. Resolved - Most likely secondary to hypovolemia - Initial lactic acid level 2.3, repeat level I.6, trending towards normal - Continue to monitor Elevated troponin. Present on admission. Improving - Most likely secondary to demand ischemia - Initial by 0.022, repeat value shows downward trend - No ST changes on ECG - No complaints of chest pain - Continue to monitor Chronic pain secondary to multiple orthopedic issues and recent surgery, POA, acute on chronic. Active - Hold home Oxycodone - Continue home Gabapentin tomorrow AM Hypercalcemia and hyperphosphatemia of renal failure, POA, chronic. Active -Resumed home Cinacalcet tomorrow AM -Resumed home Sevelamer tomorrow AM Depression and anxiety, POA, chronic. Stable -Resumed home Bupropion tomorrow AM -Resumed home Venlafaxine tomorrow AM Patient Status: Disposition uncertain at this point pending return of BP hemeostasis in the absence of pressors, likely 1-3 more days and DC home with no needs. Pain Evaluation: Adequate Pain Control GI Prophylaxis: Proton Pump Inhibitor VTE Prophylaxis: Sub-Q Heparin (Unfractionated) Resuscitation Status: CPR: Attempt Resuscitation Maxim Joseph DO May 01, 2017 14:40
--- NOTE | 2017-05-01 15:22 | CONS ---
[address] [address] CONSULTATION REPORT PATIENT: ALESHIA SOLORIO : 1970 MR#: [id number] ADMIT: 04/30/2017 JOB ID: [id number] DATE OF SERVICE: RENAL CONSULTATION: HISTORY: The patient is a 46-year-old, white female with a history of end-stage renal disease, is well known to me from multiple previous admissions. She was recently at [facility] for acute mental status change, which resolved after several days. Since discharge, she states that she was feeling well and had no nausea, vomiting, or diarrhea. She found that her blood pressure was markedly low and contacted her aircraft load controller who is with an outside nephrology group, and he advised her to come to the hospital. In the emergency department she was found to have a systolic blood pressure between 78 and 90. She initially did not feel any dizziness, lightheadedness, diaphoresis, or palpitations. She was given some cautious hydration and IV pressors with some improvement. She denies any fever, chills, cough, wheezing, rashes, and she does not urinate because she is anuric. A number of months ago she went underwent a bilateral nephrectomy in preparation for renal transplant, as she has a history of autosomal dominant polycystic kidney disease. Subsequent to this, she developed a ventral hernia, which required an extensive repair with mesh implantation, which was done by Dr. Townsend several weeks ago. Following discharge from that, she had been doing well but unfortunately, took some baclofen along with her other medications and had a marked change in her mental status. She was admitted, and there were some questionable extrapyramidal findings, which resolved with several doses of Cogentin and dialysis. PAST MEDICAL HISTORY: Significant for autosomal dominant polycystic kidney disease, hypertension with hypertensive heart disease and hypertensive nephrosclerosis, cerebral aneurysms, migraines, end-stage renal disease, obstructive sleep apnea. PAST SURGICAL HISTORY: Significant for bilateral nephrectomy and ventral hernia repair with mesh implantation as detailed above, left AV fistula, bladder sling, uterine ablation and tubal ligation. ALLERGIES: She is allergic to VANCOMYCIN. SOCIAL HISTORY: She smokes less than a pack of cigarettes but smokes daily. She denies any alcohol or illicit drugs. REVIEW OF SYSTEMS: As detailed above. Otherwise, she denies any headache, chest pain, shortness of breath, cough, or wheezing. PHYSICAL EXAMINATION: GENERAL: Revealed a mildly pale, well-developed 46-year-old, white female, who was alert and oriented x3, in no distress at the time of my evaluation. VITAL SIGNS: Her blood pressure was 86/42 with a heart rate of 84. HEENT EXAMINATION: Remarkable for pale sclerae. NECK: Supple, without adenopathy, thyromegaly, or jugular venous distention. LUNGS: Clear to auscultation. HEART: Regular and rhythmical with a soft systolic murmur. ABDOMEN: Soft, without any tenderness, rebound guarding, masses, or hepatosplenomegaly. EXTREMITIES: Do not show any evidence of any clubbing, cyanosis, or edema. SKIN: Turgor is good, and there is no evidence of any rashes. LABORATORY EXAMINATION: This morning her hemoglobin was 8.8, hematocrit 29.1. Sodium is 140, potassium 4.1, chloride 96, bicarbonate 25, BUN and creatinine were 51 and 11.3, respectively. IMPRESSION: 1. End-stage renal disease -- dialysis dependent. 2. Hypertension with hypertensive heart disease and hypertensive nephrosclerosis. 3. Hypotension. 4. Autosomal dominant polycystic kidney disease. RECOMMENDATION: I will make arrangements for her dialysis tomorrow. Once again, I would like to thank you for allowing me to participate in the care of this most pleasant and interesting patient. I will be following her closely with you.
[2017-05-01] MEDS: Sodium Chloride LOK Flush 10 mL Syringe IVFLUSH PRN (15:42)
[2017-05-01] MEDS ORDERED: Alum-Mag Hydrox-Simeth 30 mL Suspension PO ONE (21:00)
[2017-05-02] VITALS (7 sets, daily range): BP systolic 84–112; BP diastolic 46–71; PULSE 67–86; RESP 16–23; O2SAT 94–98
[2017-05-02] MEDS: Heparin 5,000 Unit/mL Inj SUBQ SCH ×4 (00:05→23:46)
[2017-05-02] MEDS: Norepineph 8,000 mCg/250 mL NS 8,000 MCG in IV Premix 1 EACH IV SCH (03:26)
--- NOTE | 2017-05-02 04:19 | NUR ---
Hypotension/Pain/Constipation On low dose levo gtt @ 0.02 mcg/kg/min, attempted to wean off, SBP down to 85's mmhg. restarted gtt at previous rate, map>65. pt c/o 3-03/03 abd surgical pain, given roxicodone prn, pain relieved, c/o constipation, given miralax po, c/o heartburn maalox 30ml given. Pt report given to Tai Mcguire RN, Assumed care until 429.
[2017-05-02 04:39] LABS: BASOPHILS % (AUTO) 0.5 % (0-3); EOSINOPHILS % (AUTO) 8.4 % (0-5); MONOCYTES % (AUTO) 2.9 % (4-12); Mean Corpuscular Hemoglobin 33.2 pg (27.0-35.0); Mean Corpuscular Volume 110.7 fL (81-100); NEUTROPHILS % (AUTO) 77.1 % (40-74); Platelet Count 242 bil/L (150-400)
[2017-05-02 04:55] LABS: INR 0.99 ratio
[2017-05-02 05:09] LABS: Magnesium 2.6 mg/dL (1.6-2.6); Phosphorus 4.8 mg/dL (2.5-4.9)
[2017-05-02] MEDS: Pantoprazole 40 mg ER24 Tablet PO SCH (07:23)
[2017-05-02] MEDS: Sodium Chloride LOK Flush 10 mL Syringe IVFLUSH PRN ×3 (07:41→16:46)
[2017-05-02] MEDS: Venlafaxine XR 75 mg ER24 Capsule PO SCH (07:52)
[2017-05-02] MEDS: buPROPion SR 150 mg ER12 Tablet PO SCH (07:53)
--- NOTE | 2017-05-02 12:00 | NUR ---
Dialysis note: 4 hrs tx 2000 ml net UF Left upper arm fistula, accessed w/ no problems Pls see DTR for VS details, cont on Norepi gtt Qb 400-500 Heparin given O2 @ 2L via NC on during tx Tolerated tx, ate snacks and visited with family during tx Fistula needle sites clotted w/in 10 min Stable condition at end of tx Report given to Poly CARUSO
--- NOTE | 2017-05-02 13:32 | PCM.PNNEPH ---
Subjective Date of Service May 02, 2017 Subjective Patient's blood pressure remains somewhat labile. Otherwise she states that she feels well and denies any headache, chest pain, shortness of breath. Exam Vital Signs Vital Sign - Last Date Time Temp Pulse Resp B/P Pulse Ox O2 Delivery O2 Flow Rate FiO2 05/02/17 11:28 37.1 76 19 108/70 98 Room Air 05/01/17 15:50 1.00 Intake and Output 05/01/17 05/01/17 05/02/17 Cumulative From/Thru 15:00 23:00 07:00 04/30/17 16:11 - 05/02/17 04:58 Intake Total 1578 ml 517 ml 4614 ml Balance 1578 ml 517 ml 4614 ml Intake Oral 1450 ml 354 ml 1804 ml IV Total 128 ml 163 ml 2810 ml # Voids 0 0 # Bowel Movements 0 0 Exam Neck is supple without adenopathy, thyromegaly, or jugular venous distention. Lungs are clear to auscultation. Heart is regular and rhythmical with a soft systolic murmur. Abdomen is soft without any tenderness rebound guarding masses or hepatosplenomegaly. Extremities do not show any evidence of any clubbing, cyanosis, or edema. Skin turgor is good. Lab and Diagnostics Result Diagram: 05/02/1742405/02/17 042 X-Rays, CTs and MRIs X-RAY CHEST ONE VIEW, PORTABLE IMPRESSION: No acute cardiopulmonary disease process. Dictated by: Maria Castro MD, PhD on 04/30/2017 at 19:12 12-lead ECG Sinus rhythm rate of 85. No ST changes or T-wave inversions. No change from prior ECG Plan Impression Impression #1 end-stage renal disease dialysis dependent #2 autosomal dominant polycystic kidney disease #3 status post bilateral nephrectomy #4 status post abdominal hernia repair with mesh implantation #5 persistent hypotension. Recommendations #1 the patient be dialyzed today for 4 hours on a max dialyzer, 3 potassium bath, 3000 of heparin and 500 per hour, and we will try to take O1 to 2 L of fluid off. In light of the patient's in explainable hypotension I would like to get a screening echocardiogram to make sure that were not missing some atypical tinea or not. Tacho Ac DO May 02, 2017 13:32
--- NOTE | 2017-05-02 16:06 | PCM.PNMED ---
Subjective Date of Service May 02, 2017 Subjective Upon initial evaluation the patient reported that she had no specific complaints , and is feeling about as well as her baseline. She denies chest pain, dizziness , weakness, SOB, palpitations, orthostatic dizziness, dysuria, diarrhea, or abdominal pain. There was an episode immediately following dialysis in which the patient reported an acute onset severe headache immediately following completion of dialysis; Her SBP increased precipitously to > 200 and she appeared to manifest some increasing edema and bruising around her fistula site. This resolved spontaneously after about 5 minutes with some continued edema and bruising along the dorsal aspect of her upper arm at the level of her fistula. Comprehensive ROS negative except as listed above. Exam Vital Signs Vital Sign - Last Date Time Temp Pulse Resp B/P Pulse Ox O2 Delivery O2 Flow Rate FiO2 05/02/17 11:28 37.1 76 19 108/70 98 Room Air 05/01/17 15:50 1.00 Intake and Output 05/01/17 05/01/17 05/02/17 Cumulative From/Thru 15:00 23:00 07:00 04/30/17 16:11 - 05/02/17 04:58 Intake Total 1578 ml 517 ml 4614 ml Balance 1578 ml 517 ml 4614 ml Intake Oral 1450 ml 354 ml 1804 ml IV Total 128 ml 163 ml 2810 ml # Voids 0 0 # Bowel Movements 0 0 Exam Gen: A/O x3 pleasant cooperative woman in NAD Neck: R IJ line in place and appears patent HEENT: PERRL, EOMI, no scleral icterus, no conjunctival pallor CV: RRR, dialysis fistula thrill audible on cardiac auscultation. Resp: Lungs CTA BL, no wheezing rales or rhonchi Abd: Soft, non tender, no organomegaly Extr: Left dialysis fistula with appropriate palpable and aubible trill, increased bruising and edema surrounding the fistula site, palpation of fistula is not painful Neuro: CN 2-12 grossly intact, no focal neurologic deficit Psych: Pleasant and appropriate mood and affect. IVs and Medications IV Fluids 250 ml NS delivered with IV medication Medications Reviewed: Medications were reviewed in detail Lab and Diagnostics Item Value Date Time Red Blood Count 2.71 mil/mm3 L 05/02/17424 Mean Corpuscular Volume 110.7 fL H 05/02/175 Mean Corpuscular Hemoglobin 33.2 pg 05/02/17424 Mean Corpuscular Hemoglobin Concent 30.0 % L 05/02/17424 Red Cell Distribution Width 15.4 % 05/02/17424 Neutrophils (%) (Auto) 77.1 % H 05/02/17424 Lymphocytes (%) (Auto) 10.8 % L 05/02/17424 Monocytes (%) (Auto) 2.9 % L 05/02/17424 Eosinophils (%) (Auto) 8.4 % H 05/02/17424 Basophils (%) (Auto) 0.5 % 05/02/17424 Estimat Glomerular Filtration Rate 5 mL/min 05/02/17424 Calcium Level 8.6 mg/dL 05/02/17424 Phosphorus Level 4.8 mg/dL 05/02/17424 Magnesium Level 2.6 mg/dL 05/02/17424 Total Bilirubin 0.2 mg/dL 05/02/17424 Aspartate Amino Transf (AST/SGOT) 21 U/L 05/02/17424 Alanine Aminotransferase (ALT/SGPT) 15 U/L 05/02/17424 Alkaline Phosphatase 178 U/L H 05/02/17424 Total Protein 6.0 g/dL L 05/02/17424 Albumin 3.3 g/dL L 05/02/17424 Procalcitonin 0.48 ng/mL H 05/02/17424 Free Thyroxine 0.93 ng/dL 05/01/175 Result Diagram: 05/02/1742405/02/17424 Microbiology Blood culture no growth after 24 hours X-Rays, CTs and MRIs X-RAY CHEST ONE VIEW, PORTABLE IMPRESSION: No acute cardiopulmonary disease process. Dictated by: Maria Castro MD, PhD on 04/30/2017 at 19:12 12-lead ECG Sinus rhythm rate of 85. No ST changes or T-wave inversions. No change from prior ECG Assessment & Plan 46 year old female with PMH of hypertension with reported brain aneurysm, renal failure on HD s/p bilateral nephrectomy and resected open hernia repair admitted for asymptomatic hypotension. Patient has been maintained on Levophed, attempt to wean completely off unsuccessful due to hypotension, patient currently being maintained on a small dose infusion of Levophed. Acute episode of headache and HTN which resolved spontaneously with some residual increased bruising and edema surrounding his fistula, it is unclear whether this preceded her acute event. Hypotension. Acute. Present on admission. Ongoing - possibly secondary to intra-peridialysis hypotension, patient with an extra session of ultrafiltrate, and ate a large meal during 04/29/17 dialysis session - Exact etiology uncertain, some concern for opiate overuse but this seems increasingly less likely as hypotension persists in the absence of further opiate administration - ECHO ordered to evaluate for possible cardiac etiology - Septic process increasingly less likely as she has not manifested any infectious signs or symptoms - Patient denies medications for hypertension - Patient normotensive at time of interview - Peripheral IV access difficult - Central line placement in ED - 2 L of fluid given in the ED - Held additional fluid beyond TKO - Continue to monitor - Will continue with attempts to wean of pressors Chronic renal failure on dialysis s/p bilateral nephrectomy. Present on admission. 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 Present on admission. Ongoing - Hemoglobin at or above level during previous admission - Stool guaiac - Continue to monitor Lactic acidosis. Present on admission. Resolved - Most likely secondary to hypovolemia - Initial lactic acid level 2.3, repeat level I.6, trending towards normal - Continue to monitor Elevated troponin. Present on admission. Improving - Most likely secondary to demand ischemia - Initial by 0.022, repeat value shows downward trend - No ST changes on ECG - No complaints of chest pain - Continue to monitor Chronic pain secondary to multiple orthopedic issues and recent surgery, POA, acute on chronic. Active - Hold home Oxycodone - Continue home Gabapentin tomorrow AM Hypercalcemia and hyperphosphatemia of renal failure, POA, chronic. Active -Resumed home Cinacalcet tomorrow AM -Resumed home Sevelamer tomorrow AM Depression and anxiety, POA, chronic. Stable -Resumed home Bupropion tomorrow AM -Resumed home Venlafaxine tomorrow AM Patient Status: Disposition uncertain at this point pending return of BP hemeostasis in the absence of pressors, likely 1-3 more days and DC home with no needs. Pain Evaluation: Adequate Pain Control GI Prophylaxis: Proton Pump Inhibitor VTE Prophylaxis: Sub-Q Heparin (Unfractionated) Resuscitation Status: CPR: Attempt Resuscitation Attending Statement The patient was seen and examined together with Dr. Joseph on 05/02/17 and I agree with the history, exam and plan as outlined in the note above. Maxim Joseph DO May 02, 2017 16:06 Jennifer Richards DO May 04, 2017 18:33
--- NOTE | 2017-05-02 16:26 | DRSVH ---
[facility] [address] [place] [address] Echocardiogram Report Name: ALESHIA SOLORIO MStudy Date : 05/02/2017 Height: 61 in Hospital Exam Location: [facility] Weight: 208 lb Gender: Female BSA: 1.9 m2 : 1970 Age: 46 yrs BP: 84/46 mmHg Reason For Study: TAMPONADE Ordering Physician: BETHANY TEAM Performed By: Sloan Canales Referring Physician: Suraj BOWDEN Interpretation Summary The left ventricle is normal in size. The ejection fraction is estimated to be 60-65%. There has been no significant change in LV EF since the previous study. The right ventricle is normal in size and function. There is mild mitral regurgitation. Compared to the prior echo study, there has been no change in the severity of mitral regurgitation. There is no pericardial effusion. Incidental finding of multiple hepatic cysts is noted. Procedure: A two-dimensional transthoracic echocardiogram with color flow and Doppler was performed in limited views only. The study quality was technically good. Comparison is made with the echocardiogram of 08/14/16. The patient was in normal sinus rhythm during the exam. Left Ventricle: There is normal left ventricular wall thickness. The left ventricle is normal in size. There is no thrombus. The ejection fraction is estimated to be 60-65%. There has been no significant change since the previous study. There are no focal wall motion abnormalities. Spectral Doppler of the mitral valve is reversed, with an E/A wave ratio < 1.0. Right Ventricle: The right ventricle is normal in size and function. Atria: The left atrium is mildly dilated. The left atrium has remained unchanged in size since the prior echo exam. The right atrium is normal in size. A prominent eustachian valve is noted. The interatrial septum is intact with no evidence for an atrial septal defect. Mitral Valve: There is mild mitral annular calcification. The mitral valve leaflets are mildly calcified. There is mild mitral regurgitation. Compared to the prior echo study, there has been no change in the severity of mitral regurgitation. Aortic Valve: The aortic valve is trileaflet. The aortic valve opens well. The aortic valve is slightly calcified. There is no aortic valve stenosis. No aortic regurgitation is present. Tricuspid Valve: The tricuspid valve leaflets are thickened and/or calcified, but open well. There is trace tricuspid regurgitation. The right ventricular systolic pressure is estimated at 24 mmHg assuming a right atrial pressure of 3 mm Hg. Compared to the prior echo exam, there has been no change in TR severity. Pericardium/ Pleura There is no pericardial effusion. There are no echocardiographic indications of cardiac tamponade. There is no pleural effusion. Incidental finding of multiple hepatic cysts is noted. MMode/2D Measurements & Calculations LVIDd: 4.6 cm RA long axis asc Aorta LVIDs: 3.0 cm LA A2 area: 21.9 cm Diam: 3.7 cm FS: 34.3 % LA A4 area: 21.3 cm RA area IVSd: 0.96 cm LA length (vol): 5.7 cm LVPWd: 0.85 cm LA vol: 69.2 ml : 16.8 cm LA vol index RA vol: 52.2 ml RA : 27.2 mm2 IVC diam: 0.56 cm LV ceballos. diameter/BSA LV sys. diameter/BSA (cm/m^2): 2.4 (cm/m^2): 1.6 Doppler Measurements & Calculations Ao V2 max MV E max adrian MV E/A: 0.92 TR max adrian : 149.7 cm/sec : 88.2 cm/sec Med Peak E' Adrian : 229.1 cm/sec Ao max PG MV A max adrian TR max PG : 9.0 mmHg : 95.4 cm/sec E/E' med: 12.0 : 21.0 mmHg Ao mean PG MV A dur: 0.11 sec : 5.2 mmHg MV dec time Ao V2 mean : 0.24 sec : 107.7 cm/sec Ao V2 VTI: 27.1 cm Reading Physician:SABINA
--- NOTE | 2017-05-02 18:12 | NUR ---
Sharp pain Hemodialysis completed today. Post dialysis left arm was camper by butter fat tester for appropriate period of time. After that time butter fat tester removed clamped butter fat tester continued her assessment and when considered fistula to be stable post dialysis she left the room. Few minutes after that patient developed sharp pain radiating from her left arm up to her neck and left side of her head. Patient described the patient as being 10/10, sharp and made her sensitive to light- patient cover her head with a pillow. MD and butter fat tester brooks made aware about this finding. At the time BP was 203/77 with a heart rat 100-110. Left arm on medial portion below fistula appeared to be swollen and bruised. Pressure was placed over post dialysis puncture side x2 dressings with two fingers without occluding- palpable thrill remained above and below pressure points. Pressure was held for 20min and during that time patient stated gradual decrease of symptoms until resolved. Side was assessed by attending milk handler, and butter fat tester. Left arm was elevated on two pillows and ice placed over fistula side per MD recommendation. Patient denied having any farther pain. MD ordered labs for am, no farther changes were noted.
[2017-05-03] MEDS: Norepineph 8,000 mCg/250 mL NS 8,000 MCG in IV Premix 1 EACH IV SCH (03:32)
[2017-05-03 03:48] VITALS: BP 100/58; PULSE 72; RESP 18; O2SAT 99
[2017-05-03 03:56] LABS: BASOPHILS % (AUTO) 0.9 % (0-3); EOSINOPHILS % (AUTO) 12.3 % (0-5); MONOCYTES % (AUTO) 4.7 % (4-12); Mean Corpuscular Hemoglobin 33.1 pg (27.0-35.0); Mean Corpuscular Volume 111.8 fL (81-100); NEUTROPHILS % (AUTO) 55.6 % (40-74); Platelet Count 195 bil/L (150-400)
[2017-05-03 04:34] LABS: Magnesium 2.1 mg/dL (1.6-2.6); Phosphorus 3.4 mg/dL (2.5-4.9)
--- NOTE | 2017-05-03 04:44 | NUR ---
BP / pain BP stable overnight. Levophed remains off. MAP > 60 Patient's only complaints of pain are for her abdominal pain; no further episodes of sharp pain or headaches. Declines pain medication. Abdominal binder remains in place. Fistula site is bruised but soft. It remains unchanged during manager night.
[2017-05-03 08:30] VITALS: BP 107/81; PULSE 71; RESP 18; O2SAT 99
[2017-05-03] MEDS: Heparin 5,000 Unit/mL Inj SUBQ SCH (09:04)
[2017-05-03] MEDS: Pantoprazole 40 mg ER24 Tablet PO SCH (09:04)
[2017-05-03] MEDS: buPROPion SR 150 mg ER12 Tablet PO SCH (09:05)
[2017-05-03] MEDS: Venlafaxine XR 75 mg ER24 Capsule PO SCH (09:05)
--- NOTE | 2017-05-03 10:48 | PCM.DIMED ---
Maxim Joseph DO 05/03/17 1041: Discharge Instructions Date of Service May 03, 2017 Dates of Hospitalization Apr 30, 2017 at 21:17 Discharge Diagnosis Discharge Diagnosis Hypotension: It is not entirely clear what caused your blood pressure to drop, it is most likely due to the extra "puff" that you had on Friday combined with a meal. In the future try to avoid any big meals with dialysis in the future. Chronic renal failure on dialysis s/p bilateral nephrectomy: As always continue to stay consistent with your dialysis. Anemia due to lack of Kidneys: Your blood will always be a bit thin because you kidneys play an important role in blood cell production. You should continue to have routine labs drawn as part of your usual outpatient care Lactic acidosis: You had some extra acid in your blood when you came in here, most likely because your blood pressure was so low your tissue was not getting enough oxygen. Elevated troponin: This is likely due to both your lack of kidneys, and the low blood pressure causing stress on your heart from lack of oxygen. Chronic pain secondary to multiple orthopedic issues and recent surgery: Continue to try to attempt to be conservative in your use of pain medications. 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 Hypercalcemia and hyperphosphatemia of renal failure: You will always have issues with your electrolyte balance because kidneys are the main regulator of salt and water in the body. Continue to take your medications as directed and follow your dialysis schedule. . Diet Discharge Diet: Renal Diet Activity Discharge Activity: No restrictions (Balance rest and activity) Call your provider Call your provider for: Fever or Chills, Shortness of breath, Bleeding, Chest pain, Vomitting, Excessive diarrhea, Weakness (unilateral) Patient Instructions Patient Instructions Continue to keep an eye on your fistula, use ice for the next week or so to reduce swelling and bruising. If you have any big changes in swelling or bruising please return to the ER for further evaluation. Follow-up plan Follow up with your primary care provider Dr. Urias within 2 weeks for further evaluation Follow-up Provider: Alfredito Urias MD Follow-up with PCP in: 2 weeks Jennifer Richards DO 05/03/17 1227: Discharge Instructions Attending's Statement The patient was seen and examined together with Dr. Joseph on 05/03/17 and I agree with the history, exam and plan as outlined in the note above. Maxim Joseph DO May 03, 2017 10:41 Jennifer Richards DO May 03, 2017 12:27
--- NOTE | 2017-05-03 16:57 | PCM.DC.MED ---
Discharge Summary Date of Service May 03, 2017 Dates of Hospitalization Date of Hospital Admission Apr 30, 2017 at 21:17 Date of Discharge: May 03, 2017 Providers: Admitting Physician: Vibha Flores DO Primary Care Physician: Alfredito Urias MD Attending Physician: Vibha Flores DO Diagnosis at Time of Discharge Diagnosis at Time of Discharge Hypotension. Acute. Present on admission. Ongoing Chronic renal failure on dialysis s/p bilateral nephrectomy. Present on admission. Ongoing Anemia due to lack of Kidneys. Present on admission. Ongoing Lactic acidosis. Present on admission. Resolved Elevated troponin. Present on admission. Improving Chronic pain secondary to multiple orthopedic issues and recent surgery, POA, acute on chronic. Active Hypercalcemia and hyperphosphatemia of renal failure, POA, chronic. Active Depression and anxiety, POA, chronic. Stable Consultations Nephrology with Dr. Ac Procedures XRay, CTs & MRIs X-RAY CHEST ONE VIEW, PORTABLE IMPRESSION: No acute cardiopulmonary disease process. Dictated by: Maria Castro MD, PhD on 04/30/2017 at 19:12 ECG 12 Lead Sinus rhythm rate of 85. No ST changes or T-wave inversions. No change from prior ECG Brief History Taken from History and Physical composed by Dr. Isaak Burgos Ms. Cuellar is a 46-year-old female with past medical history of hypertension and renal failure s/p bilateral nephrectomy currently on HD Friday and recent complex hernia repair 04/12/2017 who presented to the ED secondary to hypotension 1 day. She was discharged from [facility] yesterday after a 3 day hospital stay for encephalopathy secondary to baclofen ingestion. She did receive hemodialysis on 04/28/2017 and had fluid removed on 04/29/2017. Patient routinely takes her blood pressure at home and noticed today that it was low with reported value of 70s over 40s. She called her doctor who informed her that she was not a candidate for dialysis today secondary to this hypotension. She was instructed to present to the ED. Upon discharge yesterday her blood pressure was 109/72, she reports no symptoms of hypotension , denies headache, visual disturbances, dizziness, chest pain, shortness of breath, nausea vomiting extremity numbness tingling or weakness. Patient is anuric baseline. She states that during her hospital stay she developed slight fevers that have since resolved. She denies any additional medication use aside from those regular prescribed, took 1 oxycodone this morning for postoperative abdominal pain. In the ED blood pressures ranged from 99/47-78/45. At time of interview blood pressure 120s over 80s. Patient remains asymptomatic. Patient received approximately 2 L normal saline. Lab values remarkable for mild anemia elevated BUN/creatinine, lactic acid of 2.3 alkaline phosphatase 201 and troponin 0.022. Central line placed. Hospital Course 46 year old female with PMH of hypertension with reported brain aneurysm, renal failure on HD s/p bilateral nephrectomy and resected open hernia repair admitted for asymptomatic hypotension. Patient has been maintained on Levophed, attempt to wean completely off unsuccessful due to hypotension, patient currently being maintained on a small dose infusion of Levophed. Acute episode of headache and HTN which resolved spontaneously with some residual increased bruising and edema surrounding her fistula, it is unclear whether this preceded her acute event. The patient continued to make steady incremental progress without further hypotensive events once pressors were titrated off. On the day of discharge she had returned to roughly her baseline Cr and mentation. She was discharged home with strict follow up and return precautions. The patient is being discharged home in stable condition. For full hospital course see below. Hypotension. Acute. Present on admission. Ongoing - possibly secondary to intra-peridialysis hypotension, patient with an extra session of ultrafiltrate, and ate a large meal during 04/29/17 dialysis session - Exact etiology uncertain, some concern for opiate overuse but this seems increasingly less likely as hypotension persists in the absence of further opiate administration - ECHO ordered to evaluate for possible cardiac etiology - Septic process increasingly less likely as she has not manifested any infectious signs or symptoms - Patient denies medications for hypertension - Patient normotensive at time of discharge - Peripheral IV access difficult - Central line placement in ED - 2 L of fluid given in the ED - Held additional fluid beyond TKO Chronic renal failure on dialysis s/p bilateral nephrectomy. Present on admission. Ongoing - Nephrology consulted for hemodialysis - Patient received dialysis according to her usual MWF schedule as outlined in Nephrology note Anemia due to lack of Kidneys. Present on admission. Ongoing - Hemoglobin at or above level during previous admission - Stool guaiac negative - Continued to monitor Lactic acidosis. Present on admission. Resolved - Most likely secondary to hypovolemia - Initial lactic acid level 2.3, repeat level I.6, trended to normal - Continued to monitor Elevated troponin. Present on admission. Improving - Most likely secondary to demand ischemia - Initial by 0.022, repeat value shows downward trend - No ST changes on ECG - No complaints of chest pain - Continued to monitor Chronic pain secondary to multiple orthopedic issues and recent surgery, POA, acute on chronic. Active - Hold home Oxycodone - Continued home Gabapentin tomorrow AM Hypercalcemia and hyperphosphatemia of renal failure, POA, chronic. Active -Resumed home Cinacalcet tomorrow AM -Resumed home Sevelamer tomorrow AM Depression and anxiety, POA, chronic. Stable -Resumed home Bupropion tomorrow AM -Resumed home Venlafaxine tomorrow AM . Exam Vital Signs (Last) Date Time Temp Pulse Resp B/P Pulse Ox O2 Delivery O2 Flow Rate FiO2 05/03/17 08:30 37.2 71 18 107/81 99 Room Air 05/01/17 15:50 1.00 Exam Gen: A/O x3 pleasant cooperative woman in NAD Neck: R IJ line in place and appears patent HEENT: PERRL, EOMI, no scleral icterus, no conjunctival pallor CV: RRR, dialysis fistula thrill audible on cardiac auscultation. Resp: Lungs CTA BL, no wheezing rales or rhonchi Abd: Soft, non tender, no organomegaly Extr: Left dialysis fistula with appropriate palpable and aubible trill, increased bruising and edema surrounding the fistula site, palpation of fistula is not painful Neuro: CN 2-12 grossly intact, no focal neurologic deficit Psych: Pleasant and appropriate mood and affect. Test 04/30/17 21:50 05/01/17 02:15 05/01/17 03:15 05/02/17 04:25 Thyroid Stimulating Hormone (TSH) 5.350uIU/mL (0.450-4.500) Lactic Acid Level 1.4mmol/L (0.4-2.0) Troponin T 0.018ug/L (0.0-0.011) Free Thyroxine 0.93ng/dL (0.82-1.77) Prothrombin Time 10.6sec (8.1-12.5) Prothromb Time International Ratio 0.99ratio Procalcitonin 0.48ng/mL (0.00-0.08) Test 05/03/17 03:35 White Blood Count 6.6th/mm3 (3.8-10.1) Red Blood Count 2.54mil/mm3 (3.90-5.20) Hemoglobin 8.4g/dL (12.0-15.6) Hematocrit 28.4% (35.0-46.0) Mean Corpuscular Volume 111.8fL (81-100) Mean Corpuscular Hemoglobin 33.1pg (27.0-35.0) Mean Corpuscular Hemoglobin Concent 29.6% (32.0-37.0) Red Cell Distribution Width 15.4% (12.3-15.4) Platelet Count 195bil/L (150-400) Neutrophils (%) (Auto) 55.6% (40-74) Lymphocytes (%) (Auto) 26.0% (14-46) Monocytes (%) (Auto) 4.7% (4-12) Eosinophils (%) (Auto) 12.3% (0-5) Basophils (%) (Auto) 0.9% (0-3) Sodium Level 141mEq/L (134-144) Potassium Level 4.5mEq/L (3.5-5.2) Chloride Level 97mEq/L (97-108) Carbon Dioxide Level 31mmol/L (18-29) Blood Urea Nitrogen 24mg/dL (6-24) Creatinine 6.30mg/dL (0.57-1.00) Estimat Glomerular Filtration Rate 10mL/min (>59) Glucose Level 79mg/dL (60-99) Calcium Level 8.7mg/dL (8.5-10.1) Phosphorus Level 3.4mg/dL (2.5-4.9) Magnesium Level 2.1mg/dL (1.6-2.6) Total Bilirubin 0.2mg/dL (0.0-1.2) Aspartate Amino Transf (AST/SGOT) 21U/L (0-50) Alanine Aminotransferase (ALT/SGPT) 14U/L (0-32) Alkaline Phosphatase 166U/L (25-150) Total Protein 5.1g/dL (6.4-8.4) Albumin 3.2g/dL (3.4-5.0) Prealbumin 28mg/dL (20-40) Microbiology Results Blood culture no growth after 24 hours Discharge Medications Discharge Medications Bupropion ER (Wellbutrin SR) 150 Mg Tablet.er 150 MG PO DAILY (Reported) Cinacalcet (Sensipar) 30 Mg Tablet 60 MG PO DAILY (Reported) Gabapentin (Gabapentin) 300 Mg Capsule 300 MG PO DAILY (Reported) Omeprazole (Omeprazole) 20 Mg Capsule.dr 20 MG PO DAILY (Reported) Sevelamer Carbonate (Renvela) 800 Mg Tablet 800 MG PO TID (Reported) Venlafaxine ER (Venlafaxine ER) 150 Mg Cap.er.24h 150 MG PO DAILY (Reported) As needed Fluticasone Propionate (Fluticasone Propionate Nasal) 16 Gm [place].susp 1 SPRAY NS BID PRN PRN Secretion Control (Reported) Ondansetron (Zofran) 8 Mg Tablet 8 MG PO Q8H PRN PRN For Nausea (Reported) oxyCODONE (oxyCODONE) 5 Mg Tablet 10-20 MG PO Q4H PRN PRN For Moderate Pain Prescribed by: MYRA LIGHT Followup Plan Disposition: Home with continued dialysis Follow-up plan Follow up with your primary care provider Dr. Urias within 2 weeks for further evaluation Discharge Diet: Renal Diet Discharge Activity: No restrictions (Balance rest and activity) Patient Instructions Continue to keep an eye on your fistula, use ice for the next week or so to reduce swelling and bruising. If you have any big changes in swelling or bruising please return to the ER for further evaluation. Follow-up Provider: Alfredito Urias MD Follow-up with PCP in: 2 weeks Time spent Time spent planning and coordinating discharge > 35 minutes Attending Statement The patient was seen and examined together with Dr. Joseph on 05/03/2017 and I have added additional information to the note above. copies to: Alfredito Urias MD, David E DO May 03, 2017 16:57 Jennifer Richards DO May 03, 2017 19:05
== END 2017-05-03 11:45 | disposition home or self-care (01) | DRG 314 ==
LOC: SED 16:08 → CCU 21:17 → PCC 05-02 15:45 → CCU 05-02 16:00
PROVIDERS: ADMIT Internal Medicine; ATTEND Internal Medicine
PROC: 05HM33Z Insertion of Infusion Device into Right Internal Jugular Vein, Percutaneous Approach (ICD-10-PCS; principal; 2017-04-30)
PROC: B543ZZA Ultrasonography of Right Jugular Veins, Guidance (ICD-10-PCS; 2017-04-30)
PROC: 5A1D00Z (ICD-10-PCS; 2017-05-02)
DX: I95.9 Hypotension, unspecified (principal); N18.6 End stage renal disease; I12.0 Hypertensive chronic kidney disease with stage 5 chronic kidney disease or end stage renal disease; E87.2 Acidosis; I24.8 Other forms of acute ischemic heart disease; Q61.2 Polycystic kidney, adult type; Z99.2 Dependence on renal dialysis; F17.210 Nicotine dependence, cigarettes, uncomplicated; G89.29 Other chronic pain; E83.52 Hypercalcemia; E83.30 Disorder of phosphorus metabolism, unspecified; F32.9 Major depressive disorder, single episode, unspecified; F41.9 Anxiety disorder, unspecified; D63.1 Anemia in chronic kidney disease; Z90.5 Acquired absence of kidney

== ENCOUNTER 2017-06-10 21:31 | Inpatient (IN) | payer MEDICAID, MEDICARE ==
[~2017-06-10] VITALS: Ht 154.9 cm; Wt 84.5 kg
[2017-06-10 21:46] VITALS: BP 101/65; PULSE 68; RESP 20; O2SAT 96
[2017-06-10] MEDS ORDERED: 0.9% Sodium Chloride 500 ML IV ONE (22:30)
[2017-06-10 22:32] LABS: BASOPHILS % (AUTO) 0.2 % (0-3); MONOCYTES % (AUTO) 4.8 % (4-12); Mean Corpuscular Hemoglobin 32.7 pg (27.0-35.0); Mean Corpuscular Volume 99.5 fL (81-100); NEUTROPHILS % (AUTO) 79.9 % (40-74); Platelet Count 228 bil/L (150-400)
[2017-06-10 22:38] VITALS: BP 81/57; PULSE 69; RESP 16; O2SAT 96
[2017-06-10 23:02] LABS: Magnesium 2.1 mg/dL (1.6-2.6)
--- NOTE | 2017-06-10 23:35 | ED.REPORT ---
HPI-General Illness Date of Service Jun 10, 2017 ED Provider: Vidal Pereyra DO Pt is a female with a hx of hypotension on Dialysis 3x per week presenting to the ED complaining of low blood pressure of 82/52 at home today. Associated symptoms include headache, dizziness, diarrhea and lightheadedness. Denies CP, SOB, or any other symptoms at this time. She was last dialyzed yesterday, and they removed 3.5 kg of fluid which is normal for her. Her next dialysis is tomorrow. Nursing Notes Stated Complaint: LOW BLOOD PRESSURE, HEADACHE Chief Complaint: General Complaint Nursing Notes Reviewed: Yes Allergies: Coded Allergies: vancomycin (Verified Allergy, Intermediate, itch, 06/10/17) Scheduled Bupropion ER (Wellbutrin SR) 150 Mg Tablet.er 150 MG PO DAILY Cinacalcet (Sensipar) 30 Mg Tablet 60 MG PO DAILY Gabapentin (Gabapentin) 300 Mg Capsule 300 MG PO DAILY Omeprazole (Omeprazole) 20 Mg Capsule.dr 20 MG PO DAILY Sevelamer Carbonate (Renvela) 800 Mg Tablet 800 MG PO TID Venlafaxine ER (Venlafaxine ER) 150 Mg Cap.er.24h 150 MG PO DAILY Scheduled PRN Fluticasone Propionate (Fluticasone Propionate Nasal) 16 Gm [place].susp 1 SPRAY NS BID PRN PRN Secretion Control Ondansetron (Zofran) 8 Mg Tablet 8 MG PO Q8H PRN PRN For Nausea oxyCODONE (oxyCODONE) 5 Mg Tablet 10-20 MG PO Q4H PRN PRN For Moderate Pain General Time Seen by MD: 22:10 Chief Complaint Other (Low Blood pressure) Hx Obtained From: Patient Arrived By: Walk-in Sudden in Onset?: No Onset Occurred: Just prior to arrival Symptom Duration: Since onset Location: : Head Quality: Painful Severity: Current: Moderate Severity: Maximum: Severe Recent Healthcare: No recent doctor visit, No recent hospitalization Similar Sx Previous: Yes Past Medical History Past Medical History Notes: Admit for hernia repair March 2017 Nursing Home Aide: Dr. Virgen PCP: Dr. Renea Wilhelm Past Medical History Hypertension Polycystic kidney Migraines Hx of cerebral aneurysms Chronic renal failure on dialysis History of obstructive sleep apnea Hernia Reports: Hypertension Past Surgical History Tubal ligation Uterine ablation Bladder sling Left AV fistula Bilatereal nephrectomys Hernia repair Reports: Tubal ligation Family History Father, at 52 from cerebral aneurysm Mother is 67 with CAD Smoking History Current Every Day Smoker Social History Alcohol Use: Denies alcohol use Drug Use: Denies drug use Other Social History: Good social support, Local resident Occupation On disability Ambulatory Status Independent Review of Systems + Hypotension Full Review of Systems Respiratory: Denies: Shortness of breath Cardiovascular: Denies: Chest pain GI: Reports: Diarrhea Neurologic: Reports: Dizziness, Headache, Lightheaded Complete sys rev & neg: except as marked. Physical Exam Vital Signs Vital Signs Date Time Temp Pulse Resp B/P Pulse Ox O2 Delivery O2 Flow Rate FiO2 06/11/17 02:01 97 16 96/53 97 Room Air 06/11/17 00:18 97 18 86/49 97 Room Air 06/10/17 22:38 69 16 81/57 96 Room Air 06/10/17 21:46 37.3 68 20 101/65 96 Room Air Initial VS: Reviewed General/Constitutional: Well-developed, Well-nourished Head / Eyes: Atraumatic, Normocephalic, PERRL ENT: Mucous membranes moist, Conjunctiva normal, No scleral icterus Neck: Supple, Non-tender, Full range of motion Respiratory: Breath sounds normal, Clear to auscultation, No respiratory distress Abdomen / GI: Soft, Non-tender, No guarding, No rebound, No distention Extremities: Vascular intact, Neuro intact, No swelling, No tenderness Skin: Warm, Dry, No cyanosis Neurologic: Alert, Oriented, Nonfocal Psychiatric: Mood/affect normal, Behavior normal, Normal thought content Cardiovascular: Heart rate NL, Regular rhythm Hypotension Interpretation & Diagnostics Lab Results Interpretation Result Diagram: 06/10/17222706/10/172227 Test 06/10/17 22:28 06/11/17 01:05 06/11/17 02:30 White Blood Count 14.0th/mm3 (3.8-10.1) Red Blood Count 4.44mil/mm3 (3.90-5.20) Hemoglobin 14.5g/dL (12.0-15.6) Hematocrit 44.2% (35.0-46.0) Mean Corpuscular Volume 99.5fL (81-100) Mean Corpuscular Hemoglobin 32.7pg (27.0-35.0) Mean Corpuscular Hemoglobin Concent 32.8% (32.0-37.0) Red Cell Distribution Width 14.6% (12.3-15.4) Platelet Count 228bil/L (150-400) Neutrophils (%) (Auto) 79.9% (40-74) Lymphocytes (%) (Auto) 13.8% (14-46) Monocytes (%) (Auto) 4.8% (4-12) Eosinophils (%) (Auto) 1.0% (0-5) Basophils (%) (Auto) 0.2% (0-3) Sodium Level 138mEq/L (134-144) Potassium Level 4.6mEq/L (3.5-5.2) Chloride Level 90mEq/L (97-108) Carbon Dioxide Level 21mmol/L (18-29) Blood Urea Nitrogen 40mg/dL (6-24) Creatinine 8.56mg/dL (0.57-1.00) Estimat Glomerular Filtration Rate 7mL/min (>59) Glucose Level 113mg/dL (60-99) Calcium Level 10.0mg/dL (8.5-10.1) Magnesium Level 2.1mg/dL (1.6-2.6) Total Bilirubin 0.2mg/dL (0.0-1.2) Aspartate Amino Transf (AST/SGOT) 18U/L (0-50) Alanine Aminotransferase (ALT/SGPT) 15U/L (0-32) Alkaline Phosphatase 166U/L (25-150) Troponin T 0.010ug/L (0.0-0.011) Total Protein 7.6g/dL (6.4-8.4) Albumin 4.1g/dL (3.4-5.0) Hold Purple Top Tube Received (Received) Lactic Acid Level 1.2mmol/L (0.4-2.0) Hold [place] Top Tube Received (Received) ECG Interpretation ECG Interpretation: Q wave inferiorally. Time: 22:49 Interpreted by: ED physician Normal ECG Interpretation: Normal ECG w/ rate of... (95), Normal sinus rhythm X-Ray Chest Interpretation Chest Xray Interpretation: Normal. Interpretation / Wet Read by: Wet read ED physician CT Head Interpretation CONCLUSION: No acute intracranial findings. 6x5 mm CSF density in the left basal ganglia may relate to a chronic lacunar infarct or incidental prominent perivascular space. This report was transmitted to the emergency room at 06/11/2017 - 1:34:48 AM PDT. Study: Head CT no contrast Interpretation / Wet Read by: Interpret - Radiologist Re-Eval/Medical Decision Med Decision/Clinical Course 46-year-old dialysis patient presents with recalcitrant hypotension. Clinically she was hypovolemic. Careful IV Hydration and her blood pressure trended up and then drop back down. I consulted with nephrology. Plan is for hydration and if any fluid overload they will dialyze her in the morning. Evidently we do not have beds were consulted with the crystal machining coordinator in [place]. She did not feel that this was a reasonable transfer as she recommends at least 6 hours of careful IV fluids before determining if infection needs to be in their ICU. In the meantime I will give her some oral medication to help increase her blood pressure, will continue with the fluids. No signs of bacterial infection either on examination or diagnostics. She had the similar stuff back in April and it just seemed to resolve with hydration. I put her in for an admission however we do not have a beds available. Care endorsed to Dr. Allen. If beds open up will admit her in the morning otherwise [facility] here in the ER. Time of Eval: 01:00 Patient Status: Condition improved Re-Evaluation/Progress Note: Discussed radiology, EKG and lab results and plan for admission or transfer to [facility]. Pt understands and agrees with plan. Consultation #1: Referral / Consult Name: Cem Hammer MD Consulted With: Nephrology Call Returned at: 01:02 Compressed Gas Tester: Agrees with plan Note: Carefully hydrate her, if you overload her I will dialyze her tomorrow. Consultation #2: Consulted With: Product Safety Engineer Call Returned at: 01:41 Note: Product Safety Engineer at [facility]. Will not accept the transfer, recommends keeping her in the ER and dialysis in the morning. Continue to hydrate the pt and see how she does in the morning. Counseled Regarding: Diagnosis, Lab results, Need for admission Discharge & Departure Shift Change Sign-Out Patient Care Transferred: Yes Discussed Complaint(s): Yes Laboratory Evaluation: Lab evaluation discussed Imaging Studies: Imaging discussed Input from Consult: Give the pt fluids and see how she does in the morning. Response to Therapy: Improved Primary Impression: Hypotension Hypotension type: unspecified hypotension type Qualified Code: I95.9 - Hypotension, unspecified Additional Impression: ESRD (end stage renal disease) on dialysis Disposition: ADMITTED TO HOSPITAL Discharge Condition All VS Reviewed: Yes Condition: Improved Referrals: Alfredito Urias MD (PCP) Care Transferred to: Care transferred to Dr. Allen Care Transferred at: 03:00 Scribe Attestation Portions of this note were transcribed by Aaliyah Morrison. I, Dr. Pereyra personally performed the history, physical exam and medical decision-making; I reviewed and confirmed the accuracy of the information in the transcribed note. Signed by : Monica Amato, 06/11/2017 at 0300. copies to: Alfredito Urias MD, Todd P DO Jun 10, 2017 23:35 AALIYAH MORRISON Jun 10, 2017 23:36
[2017-06-11] VITALS (15 sets, daily range): BP systolic 84–101; BP diastolic 44–61; PULSE 74–98; RESP 16–20; O2SAT 95–100
[2017-06-11] MEDS: 0.9% Sodium Chloride 1,000 ML IV SCH ×2 (01:23→11:01)
[2017-06-11] MEDS ORDERED: 0.9% Sodium Chloride 1,000 ML IV ONE (01:40)
[2017-06-11] MEDS ORDERED: fentaNYL-PF 50 mCg/mL 2 mL Inj IVPUSH ONE (01:50)
--- NOTE | 2017-06-11 07:25 | DRSVH ---
PROCEDURE: CT BRAIN WITHOUT CONTRAST ([id number]) INDICATIONS: headache TECHNIQUE: Noncontrast 4.5 mm thick angled axial sections acquired from the foramen magnum to the vertex, with c oronal reformats. COMPARISON: [facility], CT, CT BRAIN WO CON, 04/27/2017, 18:17. FINDINGS: Image quality: Excellent. CSF spaces: Basal cisterns are patent. No extra-axial fluid collections. Ventricles are normal in size and shape. Brain: No midline shift. No intracranial masses or hemorrhage. Schmidt-white matter interface is norm al. Skull and face: Calvarium and visualized facial bones are intact, without suspicious lesions. Sinuses: Visualized sinuses and mastoids are clear. IMPRESSION: No CT evidence of acute intracranial pathology. There are no discrepancies with the preliminary report. Dictated by: Vijay Triplett M.D. on 06/11/2017 at 7:22 Approved by: Vijay Triplett M.D. on 06/11/2017 at 7:23
[2017-06-11] MEDS ORDERED: Polyethylene Glycol (PEG) 17 Gm Powder PO PRN (07:35)
[2017-06-11] MEDS ORDERED: Alum-Mag Hydrox-Simeth 30 mL Suspension PO PRN (07:35)
[2017-06-11 08:18] LABS: BASOPHILS % (AUTO) 0.1 % (0-3); EOSINOPHILS % (AUTO) 1.6 % (0-5); MONOCYTES % (AUTO) 5.2 % (4-12); Mean Corpuscular Hemoglobin 32.2 pg (27.0-35.0); Mean Corpuscular Volume 102.4 fL (81-100); NEUTROPHILS % (AUTO) 73.1 % (40-74); Platelet Count 159 bil/L (150-400)
[2017-06-11] MEDS: buPROPion SR 150 mg ER12 Tablet PO SCH (09:58)
--- NOTE | 2017-06-11 10:36 | NUR ---
Admission to [facility] report given to SHADY Banegas. patient admitted to [facility] rm [id number] for dialysis.
[2017-06-11] MEDS: Pantoprazole 20 mg ER24 Tablet PO SCH (11:01)
[2017-06-11] MEDS: Venlafaxine XR 75 mg ER24 Capsule PO SCH (11:03)
--- NOTE | 2017-06-11 11:04 | DRSVH ---
PROCEDURE: X-RAY CHEST ONE VIEW, PORTABLE ([id number]) INDICATIONS: shock TECHNIQUE: One view of the chest was acquired. COMPARISON: [facility], CR, XR CHEST 1VW (PORTABLE), 05/01/2017, 0:11. FINDINGS: Surgical changes and devices: None. Right IJ CVC has been removed. Lungs and pleura: No pleural effusions or pneumothorax. Lungs are clear. Mediastinum: Mediastinal contours appear normal. Heart size is normal. Bones and chest wall: No suspicious bony lesions. Overlying soft tissues appear unremarkable. IMPRESSION: No radiographic evidence of acute cardiopulmonary pathology. Dictated by: Vijay Triplett M.D. on 06/11/2017 at 8:36 Approved by: Vijay Triplett M.D. on 06/11/2017 at 8:36
[2017-06-11] MEDS: Butalbital-Acet-Caffeine Tablet PO PRN (14:29)
--- NOTE | 2017-06-11 15:11 | NUR ---
Dialysis note: 4 hr tx. Net UF 0.0 left UA fistula - 2 - 15 g needles BP in the 90s most of the time. Post tx BP 95/60 HR 83 clotting noted in drip chamber post tx. Off tx 10 min early r/t high venous pressures clamped x 12 min, secured with bandaids, gauze, tape report given to primary RN Makenzie Pt returned to room stable Please see DTR for complete record of VS
--- NOTE | 2017-06-11 15:31 | PCM.HPMED ---
Subjective Date of Service Jun 11, 2017 Primary Provider: Admitting Physician: Clifton Colin MD Primary Care Physician: Alfredito Urias MD Attending Physician: Clifton Colin MD Chief Complaint: Dizziness Hypotension History of Present Illness: Taken from patient, ER notes: Pt is a 46 year old female with a pmh of ESRD (polycystic kidney), migraines, cerberal aneurysm, hx of hypotension on Dialysis 3x per week presenting to the ED complaining of low blood pressure of 82/52 at home today. She said she had a dialysis session. When she was home, she felt light headed, and checked her bp to be low. She checked it few times and it was consistently low, deciding to come to ER. She said she has had one similar episode in the past, however at that time she required pressors. She denies fever or chills. Did complain of having mild diarrhea at home after dialysis, which is because of the nutrition she is given at the center. She denies any more lose bowel movements. Allergies Coded Allergies: vancomycin (Verified Allergy, Intermediate, itch, 06/10/17) Constitutional: No: Chills, Fever, Malaise, Other, Sweats, Weakness Eyes: Denies: Blurred Vision, Conjunctive Inflammation, Double Vision, Eyelid Inflammation, Other, Pain, Pigmentosa, Redness, Retinitis, Vision Changes ENT: Denies: Dental Problems, Dysphagia, Ear Discharge, Ear Pain, Hoarseness, Membranes Dry, Nasal Congestion, Nose Discharge, Nose Pain, Other, Throat Pain, Tinnitus, Ulcers/Sores in Mouth Cardiovascular: Reports: Lt Headedness Respiratory: Denies: Cough, Hemoptysis, Other, Pleuritic Chest Pain, SOB with Exertion, Shortness of Breath, Sputum, Wheezing Gastrointestinal: Reports: Diarrhea Genitourinary: Denies: Anuria, Change in Frequency, Dysuria, Hematuria, Incontinence, Nocturia, Other, Retention Musculoskeletal: Denies: Back Pain, Deformity, Limitation of Function, Neck Pain, Other, Redness, Shoulder Pain, Swelling Skin: Denies: Bruising, Dry or Flakiness, Jaundice, Lesions, Other, Rash, Scars , Ulcers Neurological: Denies: Change in Speech, Confusion, Dizziness, Dyskinesia, Hyper Reflexia, Incoordination, Numbness, Other, Seizures, Somnolence, Tremors, Weakness Psychologic: Denies: Agitation, Disorientation, Excitation, Giddiness, Hostile , Insomnia, Instability, Jaclyn, Nervousness, Night Terrors, Other, Perseveration , Phobia, Sexual Disturbances Endocrine: Denies: Change in Appitite, Diaphoresis, Intolerent to Heat/Cold, Polydipsea, Polyuria PMH Hypertension Polycystic kidney Migraines Hx of cerebral aneurysms Chronic renal failure on dialysis History of obstructive sleep apnea Hernia Reports: Hypertension Surgical History Tubal ligation Uterine ablation Bladder sling Left AV fistula Bilatereal nephrectomys Hernia repair Family History Father, at 52 from cerebral aneurysm Mother is 67 with CAD Social History Hx Alcohol Use: No Hx Substance Use: No Hx Tobacco Use: Yes Smoking Status: Current Every Day Smoker Exam Vital Signs Vital Sign - Last Date Time Temp Pulse Resp B/P Pulse Ox O2 Delivery O2 Flow Rate FiO2 06/11/17 12:20 36.7 80 20 95/61 100 Room Air Intake and Output 06/10/17 06/10/17 06/11/17 Cumulative From/Thru 15:00 23:00 07:00 06/10/17 21:46 - 06/11/17 06:02 Intake Total 500 ml 1000 ml 1500 ml Balance 500 ml 1000 ml 1500 ml IV Total 500 ml 1000 ml 1500 ml Exam General/Constitutional: Well-developed, Well-nourished Head / Eyes: Atraumatic, Normocephalic, PERRL ENT: Mucous membranes moist, Conjunctiva normal, No scleral icterus Neck: Supple, Non-tender, Full range of motion Respiratory: Breath sounds normal, Clear to auscultation, No respiratory distress Abdomen / GI: Soft, Non-tender, No guarding, No rebound, No distention Extremities: Vascular intact, Neuro intact, No swelling, No tenderness Skin: Warm, Dry, No cyanosis Neurologic: Alert, Oriented, Nonfocal Lab and Diagnostics Result Diagram: 06/11/1780406/11/17804 X-Rays, CTs and MRIs Head CT IMPRESSION: No CT evidence of acute intracranial pathology. There are no discrepancies with the preliminary report. Assessment & Plan > Hypotension - no signs of sepsis: normal wbcs, afebrile, lactic acid normal - diarrhea has resolved, will monitor for any other episodes - pct elevated, likely 2/2 to ESRD, will recheck tomorrow - will check morning cortisol, TSH, T4 - on fluids - started on midodrine - nephrology on board, appreciate recs > Headache - history of migraines - will try ibuprofen and fioricet - if doesnt work will try reglan + benadryl > Hypercalcemia and hyperphosphatemia of renal failure, POA, chronic. Active -Resume home Cinacalcet -Resume home Sevelamer >Depression and anxiety, POA, chronic. Stable -Resume home Bupropion -Resume home Venlafaxine DVT prophylaxis : Heparin Subq FEN: Renal diet Disposition: Patient will be admitted for >2 days in patient due to complexity of the underlying disease. VTE Prophylaxis: Sub-Q Heparin (Unfractionated) Resuscitation Status: CPR: Attempt Resuscitation Time spent 45 mins Clifton Colin MD Jun 11, 2017 15:31
[2017-06-11] MEDS: Ondansetron 2 mg/mL 2 mL Inj IVPUSH PRN (15:46)
--- NOTE | 2017-06-11 15:47 | CONS ---
[address] [address] CONSULTATION REPORT PATIENT: ALESHIA SOLORIO : 1970 MR#: [id number] ADMIT: 06/11/2017 JOB ID: [id number] DATE OF SERVICE: 06/11/2017 NEPHROLOGY CONSULTATION: REQUESTING PHYSICIAN: Dr. Vidal Pereyra REASON FOR CONSULTATION: Management of end-stage renal disease. CHIEF COMPLAINT: Lightheadedness. PRESENT ILLNESS: This is a very pleasant 46-year-old lady with significant past medical history of polycystic kidney disease, status post bilateral nephrectomy, end-stage renal disease, on hemodialysis every Friday, Friday and Friday, hypertension, history of cerebral aneurysms, sleep apnea, hernia status post repair who came to the hospital with a complaint of dizziness. The patient reported that yesterday around 11 o'clock in the morning he started having lightheadedness. She checked her blood pressure and it was low, recorded 82/52. She reports history of fever, chills, nausea, vomiting. No significant diarrhea. She had some frontal headaches, but no neck pain. She has no chest pain. No shortness of breath. She said that she had a similar episode of hypotension about a month and a half ago and she was told that it was an unknown reason. He reported that she was doing well during dialysis. She was not cramping. She is doing well with her current estimated dry weight [facility]. Her blood pressure in the emergency department was 81/57. She received normal saline bolus 50 cc and then the drip started at 60 cc/hour. Her blood pressure has improved after some fluid replacement. During my visit, she is currently on hemodialysis. Her blood pressure is in 90s/60s. She has no complaint except some frontal headaches. She also received midodrine 2.5 mg around 2 o'clock in the morning and 11:30 today. We also checked a cortisol level. The result is pending. PAST MEDICAL HISTORY: 1. Polycystic kidney disease, status post bilateral nephrectomy. 2. End-stage renal disease, on hemodialysis every Friday, Friday and Friday. She is a patient of Dr. Jovanny Huertas and Dr. Virgen. 3. History of cerebral aneurysm. 4. Sleep apnea. 5. Hypertension. She is not on any hypertensive medication. 6. Hernia status post repair. PAST SURGICAL HISTORY: 1. Status post AV fistula placement. 2. Status post bilateral nephrectomy with a subsequent hernia repair. 3. Endometrial ablation and tubal ligation. ALLERGIES: VANCOMYCIN. SOCIAL HISTORY: Denies current use of alcohol and illicit drugs. She smokes less than a pack of cigarettes a day. FAMILY HISTORY: Positive for polycystic kidney disease in her father who of a cerebral aneurysm. Positive history of coronary artery disease in her mother. REVIEW OF SYSTEMS: Fourteen point review of system was performed. MEDICATIONS: 1. Wellbutrin. 2. Sensipar. 3. Fluticasone. 4. Gabapentin. 5. Omeprazole. 6. Zofran. 7. Renvela. 8. Venlafaxine. PHYSICAL EXAMINATION: Vitals: Temperature 36.7, pulse 80, respiratory rate 20, blood pressure 95/61, O2 sat 100% on room air. General appearance: Awake, alert, oriented x3. In no acute distress. HEENT: No pallor. No jaundice. No JVD. No lymphadenopathy. No thyroid enlargement. Heart: Regular rhythm. Normal S1, S2. No murmurs, rubs or gallops. Lungs: Clear to auscultation bilaterally. Abdomen: Soft, obese, active bowel sounds. Nontender. Nondistended. No hepatosplenomegaly. Surgical incision at the midline, which is dry, clean and intact. Extremities: No edema, cyanosis or clubbing of fingers. LABORATORY: WBC 14, came down to 8.9, hemoglobin 12.0, platelets 159. Sodium 141, potassium 4.1, chloride 97, bicarbonate 21, BUN 42, creatinine 9.18, glucose 99, calcium 9.2. Procalcitonin 0.77. ASSESSMENT: 1. Hypotension improved with IV fluids. The etiology could be related to intravascular volume depletion. Unclear source of infection. Her white count came down from 14 to 8.9 after fluid bolus. Procalcitonin slightly elevated likely related to kidney failure. Need to rule out adrenal insufficiency pending for cortisol level. Will continue normal saline 60 cc/hour for another liter to prevent further volume overload. 2. End-stage renal disease, on hemodialysis every Friday, Friday, and Friday. Will put patient on hemodialysis today without ultrafiltration. 3. Polycystic kidney disease, status post bilateral nephrectomy. 4. History of hypertension. 5. History of renal osteodystrophy. Thank you for allowing me to participate in the care of your patient. We will monitor along with you.
--- NOTE | 2017-06-11 17:04 | NUR ---
Admit from ER pt. brought to 244-1 for dialysis from ER this am; hypotensive sbp 90's, hr 80's; pt. c/o mild dizziness at rest. Receiving scheduled midodrine per md orders and continuing NS at 60 ml/hr per md orders. c/o 5/10 JOHNSON; prn motrin given x1 without relief; md notified. Fioricet given with mod relief; pt. states JOHNSON is still present but only 3/10; will notify md. Tele sinus 80's; denies cp or pressure; after dialysis pt. transferred to 240-1.
[2017-06-11] MEDS: MetoCLOpramide 5 mg/mL 2 mL Inj IVPUSH PRN (18:21)
[2017-06-11] MEDS: Heparin 5,000 Unit/mL Inj SUBQ SCH (21:51)
[2017-06-12] VITALS (12 sets, daily range): BP systolic 90–116; BP diastolic 49–77; PULSE 61–92; RESP 16–18; O2SAT 97–99
[2017-06-12] MEDS: 0.9% Sodium Chloride 1,000 ML IV SCH (01:59)
[2017-06-12] MEDS: Venlafaxine XR 75 mg ER24 Capsule PO SCH (09:36)
[2017-06-12] MEDS: Pantoprazole 20 mg ER24 Tablet PO SCH (09:37)
[2017-06-12] MEDS: Heparin 5,000 Unit/mL Inj SUBQ SCH ×2 (09:38→20:23)
[2017-06-12] MEDS: buPROPion SR 150 mg ER12 Tablet PO SCH (09:42)
[2017-06-12 10:36] LABS: BASOPHILS % (AUTO) 0.5 % (0-3); EOSINOPHILS % (AUTO) 3.6 % (0-5); MONOCYTES % (AUTO) 7.3 % (4-12); Mean Corpuscular Hemoglobin 32.5 pg (27.0-35.0); NEUTROPHILS % (AUTO) 59.1 % (40-74); Platelet Count 150 bil/L (150-400)
[2017-06-12] MEDS ORDERED: Cosyntropin 0.25 mg/mL Inj IV ONE ×2 (11:50→12:00)
--- NOTE | 2017-06-12 12:31 | PCM.PNNEPH ---
Subjective Date of Service Jun 12, 2017 Subjective BP on the low side. cortisol 2.3 and 11.2. HD yesterday without complications. Exam Vital Signs Vital Sign - Last Date Time Temp Pulse Resp B/P Pulse Ox O2 Delivery O2 Flow Rate FiO2 06/12/17 08:00 77 06/12/17 07:45 36.9 18 98/67 99 Room Air Intake and Output 06/11/17 06/11/17 06/12/17 Cumulative From/Thru 15:00 23:00 07:00 06/10/17 21:46 - 06/12/17 04:24 Intake Total 1254 ml 1417 ml 688 ml 4859 ml Output Total 0 ml 0 ml Balance 1254 ml 1417 ml 688 ml 4859 ml Intake Oral 400 ml 960 ml 1360 ml IV Total 854 ml 457 ml 688 ml 3499 ml Output Ultrafiltrate 0 ml 0 ml Exam General appearance: Awake, alert, oriented x3. In no acute distress. HEENT: No pallor. No jaundice. No JVD. No lymphadenopathy. No thyroid enlargement. Heart: Regular rhythm. Normal S1, S2. No murmurs, rubs or gallops. Lungs: Clear to auscultation bilaterally. Abdomen: Soft, obese, active bowel sounds. Nontender. Nondistended. No hepatosplenomegaly. Surgical incision at the midline, which is dry, clean and intact. Extremities: No edema, cyanosis or clubbing of fingers. AVF with good thrill and bruits. Lab and Diagnostics Result Diagram: 06/12/17 0609 06/12/17 0609 X-Rays, CTs and MRIs Head CT IMPRESSION: No CT evidence of acute intracranial pathology. There are no discrepancies with the preliminary report. Plan Impression 1. Hypotension, suspected adrenal insufficiency. 2. End-stage renal disease, on hemodialysis every Friday, Friday, and Friday. 3. Polycystic kidney disease, status post bilateral nephrectomy. 4. History of hypertension. 5. History of renal osteodystrophy. Plan: HD in am. Rec ACTH stimulation. Cem Hammer MD Jun 12, 2017 12:31
--- NOTE | 2017-06-12 12:49 | PCM.PNMED ---
Subjective Date of Service Jun 12, 2017 Subjective Patient seen and examined today. Feels much better. Headache is gone. Vitals stable. Exam Vital Signs Vital Sign - Last Date Time Temp Pulse Resp B/P Pulse Ox O2 Delivery O2 Flow Rate FiO2 06/12/17 08:00 77 06/12/17 07:45 36.9 18 98/67 99 Room Air Intake and Output 06/11/17 06/11/17 06/12/17 Cumulative From/Thru 15:00 23:00 07:00 06/10/17 21:46 - 06/12/17 04:24 Intake Total 1254 ml 1417 ml 688 ml 4859 ml Output Total 0 ml 0 ml Balance 1254 ml 1417 ml 688 ml 4859 ml Intake Oral 400 ml 960 ml 1360 ml IV Total 854 ml 457 ml 688 ml 3499 ml Output Ultrafiltrate 0 ml 0 ml Exam General/Constitutional: Well-developed, Well-nourished Head / Eyes: Atraumatic, Normocephalic, PERRL ENT: Mucous membranes moist, Conjunctiva normal, No scleral icterus Neck: Supple, Non-tender, Full range of motion Respiratory: Breath sounds normal, Clear to auscultation, No respiratory distress Abdomen / GI: Soft, Non-tender, No guarding, No rebound, No distention Extremities: Vascular intact, Neuro intact, No swelling, No tenderness Skin: Warm, Dry, No cyanosis Neurologic: Alert, Oriented, Nonfocal Lab and Diagnostics Result Diagram: 06/12/17 0609 06/12/17 0609 X-Rays, CTs and MRIs Head CT IMPRESSION: No CT evidence of acute intracranial pathology. There are no discrepancies with the preliminary report. Assessment & Plan > Hypotension - no signs of sepsis: normal wbcs, afebrile, lactic acid normal - diarrhea has resolved, will monitor for any other episodes - pct elevated, likely 2/2 to ESRD, will recheck tomorrow - morning cortisol noted, although within normal limits, will do a ACTH stimulation test - started on midodrine - TSH/t4 normal - nephrology on board, appreciate recs > Headache - history of migraines - will try ibuprofen and fioricet - if doesnt work will try reglan + benadryl > Hypercalcemia and hyperphosphatemia of renal failure, POA, chronic. Active -Resume home Cinacalcet -Resume home Sevelamer >Depression and anxiety, POA, chronic. Stable -Resume home Bupropion -Resume home Venlafaxine DVT prophylaxis : Heparin Subq FEN: Renal diet Disposition: Patient will be admitted for >2 days in patient due to complexity of the underlying disease. VTE Prophylaxis: Sub-Q Heparin (Unfractionated) Resuscitation Status: CPR: Attempt Resuscitation Time spent 35 mins Clifton Colin MD Jun 12, 2017 12:49
--- NOTE | 2017-06-12 14:57 | NUR ---
Social Work: Initial Assessment/Multidisciplinary Rounds D: Per EMR review, pt is a 46 year old female admitted for hypotension. Pt is Medicare with [employer] Supplement; pt has no LTC insurance or VA benefits. PCP is Alfredito Urias MD. NOK is Sujey Elaine, mother, . Advanced directives information provided. Readmit score is high, 4/8. Pt discussed in am rounds. Pt is on day 1 of stay. Capacity for self care discussed; no concerned at this time. No social work needs identified for discharge; pt ambulating I since admission. DOCUMENTATION MANAGER met with the patient at bedside. Sw role explained, contact information and dcp checklist provided. See initial assessment. Pt lives at home iwth her grandfather. The patient is I at baseline, uses no DME and drives. Pt has never had HH or skilled rehab. Pt received dialysis at the [facility]. Pt anticipates discharge home via POV once medically stable; she identifies no sw needs and states that she has no concerns for d/c home. A: Pt who is I at baseline. P: Anticipate pt to discharge home via POV and no sw needs; DOCUMENTATION MANAGER to continue to follow to assess for d/c planning needs. ASAD Green Addendum: 06/12/17 at 1531 by TJ BOWERS Amended: Links added.
--- NOTE | 2017-06-12 17:33 | NUR ---
Mobility/pain/BP Pt feeling better today. Amb indep in harp, steady on feet. No c/o pain. BP >systolic all shift.
[2017-06-12] MEDS: Butalbital-Acet-Caffeine Tablet PO PRN (21:43)
[2017-06-13] VITALS (9 sets, daily range): BP systolic 100–119; BP diastolic 67–78; PULSE 72–91; RESP 16–20; O2SAT 95–98
[2017-06-13] MEDS: Ondansetron 2 mg/mL 2 mL Inj IVPUSH PRN ×2 (00:43→11:03)
--- NOTE | 2017-06-13 03:24 | NUR ---
IV infiltrated at 2200 Pt. IV got infiltrated, pt. is hard stick, ED nurse was able to place PIV to right outer FA, intact and flushes well, pt. c/o migraine, given prn fioricet with low effect, MD notified, new order of oxycodone 5 mg prn given with a good results, VSS afebrile, call light in reach at all times, hourly checks and all needs attended.
[2017-06-13] MEDS ORDERED: Cosyntropin 0.25 mg/mL Inj IV ONE ×2 (06:00)
[2017-06-13 07:00] LABS: BASOPHILS % (AUTO) 0.3 % (0-3); EOSINOPHILS % (AUTO) 3.9 % (0-5); MONOCYTES % (AUTO) 6.6 % (4-12); Mean Corpuscular Hemoglobin 32.6 pg (27.0-35.0); Mean Corpuscular Volume 104.1 fL (81-100); NEUTROPHILS % (AUTO) 60.5 % (40-74); Platelet Count 161 bil/L (150-400)
[2017-06-13] MEDS: Heparin 5,000 Unit/mL Inj SUBQ SCH ×2 (07:56→20:56)
[2017-06-13] MEDS: Venlafaxine XR 75 mg ER24 Capsule PO SCH (07:57)
[2017-06-13] MEDS: Pantoprazole 20 mg ER24 Tablet PO SCH (07:57)
[2017-06-13] MEDS: buPROPion SR 150 mg ER12 Tablet PO SCH (08:00)
--- NOTE | 2017-06-13 11:38 | NUR ---
[facility] signed
[2017-06-13] MEDS ORDERED: MetoCLOpramide 5 mg/mL 2 mL Inj IVPUSH PRN (12:05)
--- NOTE | 2017-06-13 12:08 | PCM.PNMED ---
Subjective Date of Service Jun 13, 2017 Subjective Patient seen and examined today. BP improved. Has headache today. Vitals stable. Exam Vital Signs Vital Sign - Last Date Time Temp Pulse Resp B/P Pulse Ox O2 Delivery O2 Flow Rate FiO2 06/13/17 11:24 83 06/13/17 09:59 36.6 20 114/73 95 Room Air Intake and Output 06/12/17 06/12/17 06/13/17 Cumulative From/Thru 14:59 22:59 06:59 06/10/17 21:46 - 06/13/17 05:17 Intake Total 221 ml 540 ml 5620 ml Output Total 400 ml 400 ml Balance -179 ml 540 ml 5220 ml Intake Oral 540 ml 1900 ml IV Total 221 ml 3720 ml Output Urine Total 400 ml 400 ml Ultrafiltrate 0 ml # Bowel Movements 0 0 Exam General/Constitutional: Well-developed, Well-nourished Head / Eyes: Atraumatic, Normocephalic, PERRL ENT: Mucous membranes moist, Conjunctiva normal, No scleral icterus Neck: Supple, Non-tender, Full range of motion Respiratory: Breath sounds normal, Clear to auscultation, No respiratory distress Abdomen / GI: Soft, Non-tender, No guarding, No rebound, No distention Extremities: Vascular intact, Neuro intact, No swelling, No tenderness Skin: Warm, Dry, No cyanosis Neurologic: Alert, Oriented, Nonfocal Lab and Diagnostics Result Diagram: 06/13/17 0635 06/12/17 0609 X-Rays, CTs and MRIs Head CT IMPRESSION: No CT evidence of acute intracranial pathology. There are no discrepancies with the preliminary report. Assessment & Plan > Hypotension, resolving - no signs of sepsis: normal wbcs, afebrile, lactic acid normal - diarrhea has resolved, will monitor for any other episodes - pct elevated, likely 2/2 to ESRD, will recheck tomorrow - morning cortisol noted, although within normal limits, ACTH stimulation test done, pending results - started on midodrine - TSH/t4 normal - nephrology on board, appreciate recs > Headache, on and off - history of migraines - will try ibuprofen and fioricet - if doesnt work will try reglan + benadryl > Hypercalcemia and hyperphosphatemia of renal failure, POA, chronic. Active -Resume home Cinacalcet -Resume home Sevelamer >Depression and anxiety, POA, chronic. Stable -Resume home Bupropion -Resume home Venlafaxine DVT prophylaxis : Heparin Subq FEN: Renal diet Disposition: Patient will be admitted for >2 days in patient due to complexity of the underlying disease. VTE Prophylaxis: Sub-Q Heparin (Unfractionated) Resuscitation Status: CPR: Attempt Resuscitation Time spent 35 mins Clifton Colin MD Jun 13, 2017 12:08
--- NOTE | 2017-06-13 12:11 | PCM.PNNEPH ---
Subjective Date of Service Jun 13, 2017 Subjective BP improved. c/o arm swelling, 5 kgs over her EDW. No CP/SOB. Exam Vital Signs Vital Sign - Last Date Time Temp Pulse Resp B/P Pulse Ox O2 Delivery O2 Flow Rate FiO2 06/13/17 11:24 83 06/13/17 09:59 36.6 20 114/73 95 Room Air Intake and Output 06/12/17 06/12/17 06/13/17 Cumulative From/Thru 15:00 23:00 07:00 06/10/17 21:46 - 06/13/17 05:17 Intake Total 221 ml 540 ml 5620 ml Output Total 400 ml 400 ml Balance -179 ml 540 ml 5220 ml Intake Oral 540 ml 1900 ml IV Total 221 ml 3720 ml Output Urine Total 400 ml 400 ml Ultrafiltrate 0 ml # Bowel Movements 0 0 Exam General appearance: Awake, alert, oriented x3. In no acute distress. HEENT: No pallor. No jaundice. No JVD. No lymphadenopathy. No thyroid enlargement. Heart: Regular rhythm. Normal S1, S2. No murmurs, rubs or gallops. Lungs: Clear to auscultation bilaterally. Abdomen: Soft, obese, active bowel sounds. Nontender. Nondistended. No hepatosplenomegaly. Surgical incision at the midline, which is dry, clean and intact. Extremities: trace UE edema, cyanosis or clubbing of fingers. AVF with good thrill and bruits. Lab and Diagnostics Result Diagram: 06/13/17 0635 06/12/17 0609 X-Rays, CTs and MRIs Head CT IMPRESSION: No CT evidence of acute intracranial pathology. There are no discrepancies with the preliminary report. Plan Impression 1. Hypotension, suspected adrenal insufficiency. 2. End-stage renal disease, on hemodialysis every Friday, Friday, and Friday. 3. Polycystic kidney disease, status post bilateral nephrectomy. 4. History of hypertension. 5. History of renal osteodystrophy. Plan: HD today 4 hr, UF as tolerated. ACTH stimulation pending result. Cem Hammer MD Jun 13, 2017 12:11
[2017-06-13] MEDS: MetoCLOpramide 5 mg/mL 2 mL Inj IVPUSH PRN (12:21)
--- NOTE | 2017-06-13 12:40 | NUR ---
VERONICA Patient transferred to Dialysis room for her scheduled dialysis. will continue with care.
--- NOTE | 2017-06-13 17:27 | NUR ---
Headache/Nausea Patient noted to have headache this morning. Benadryl 25mg IV and Reglan IV which is effective. No further complaints of nausea, eating and drinking well. Will continue to monitor.
--- NOTE | 2017-06-13 17:50 | NUR ---
Dialysis note: 4 hrs tx 2000 ml net UF PATRICIA fistula, accessed w/ no problems Pls see DTR for VS details Qb 400-500 Heparin given O2 @ 2L via NC on during tx Tolerated tx, slept at intervals Fistula needle sites clotted w/in 10 min Stable condition at end of tx Report given to Joya CARUSO
--- NOTE | 2017-06-13 18:57 | NUR ---
PATIENT COMPLETED DIALYSIS TREATMENT, VSS.
[2017-06-14 02:00] VITALS: BP 115/63; PULSE 80; RESP 16; O2SAT 96
--- NOTE | 2017-06-14 03:17 | NUR ---
Mobility Pt. have been walking around the hallway independently, denies any discomfort this shift, VSS afebrile, call light in reach at all times.
[2017-06-14 05:31] VITALS: PULSE 80
[2017-06-14 06:41] VITALS: BP 118/65; PULSE 82; RESP 16; O2SAT 96
[2017-06-14 07:06] LABS: BASOPHILS % (AUTO) 0.9 % (0-3); Mean Corpuscular Volume 103.4 fL (81-100); NEUTROPHILS % (AUTO) 60.2 % (40-74); Platelet Count 143 bil/L (150-400)
[2017-06-14] MEDS: Heparin 5,000 Unit/mL Inj SUBQ SCH (07:58)
[2017-06-14] MEDS: Pantoprazole 20 mg ER24 Tablet PO SCH (07:58)
[2017-06-14] MEDS: Venlafaxine XR 75 mg ER24 Capsule PO SCH (07:58)
[2017-06-14] MEDS: buPROPion SR 150 mg ER12 Tablet PO SCH (08:00)
[2017-06-14 08:44] VITALS: PULSE 82
[2017-06-14 08:45] VITALS: BP 136/86; PULSE 80; RESP 16; O2SAT 99
--- NOTE | 2017-06-14 11:06 | PCM.DIMED ---
Discharge Instructions Date of Service Jun 14, 2017 Dates of Hospitalization Jun 11, 2017 at 09:47 Discharge Diagnosis Discharge Diagnosis Hypotension ESRD Diet Discharge Diet: Low fat, Low Sodium, Renal Diet Call your provider Call your provider for: Shortness of breath, Chest pain Patient Instructions Follow-up Provider: Alfredito Urias MD Follow-up with PCP in: 1 week Clifton Colin MD Jun 14, 2017 11:06
[2017-06-14] MEDS ORDERED: MIDO5TAB PO (11:15)
--- NOTE | 2017-06-14 11:21 | PCM.DC.MED ---
Discharge Summary Date of Service Jun 14, 2017 Dates of Hospitalization Date of Hospital Admission Jun 11, 2017 at 09:47 Date of Discharge: Jun 14, 2017 Providers: Admitting Physician: Clifton Colin MD Primary Care Physician: Alfredito Urias MD Attending Physician: Clifton Colin MD Diagnosis at Time of Discharge Diagnosis at Time of Discharge Hypotension ESRD Procedures XRay, CTs & MRIs Head CT IMPRESSION: No CT evidence of acute intracranial pathology. There are no discrepancies with the preliminary report. Brief History Taken from patient, ER notes: Pt is a 46 year old female with a pmh of ESRD (polycystic kidney), migraines, cerberal aneurysm, hx of hypotension on Dialysis 3x per week presenting to the ED complaining of low blood pressure of 82/52 at home today. She said she had a dialysis session. When she was home, she felt light headed, and checked her bp to be low. She checked it few times and it was consistently low, deciding to come to ER. She said she has had one similar episode in the past, however at that time she required pressors. She denies fever or chills. Did complain of having mild diarrhea at home after dialysis, which is because of the nutrition she is given at the center. She denies any more lose bowel movements. Hospital Course > Hypotension, resolved - no signs of sepsis: normal wbcs, afebrile, lactic acid normal - diarrhea has resolved - likely 2/2 dialysis vs dehydration - pct elevated, likely 2/2 to ESRD, will recheck tomorrow - morning cortisol noted, although within normal limits, ACTH stimulation test done - normal - started on midodrine, to continue on discharge till she sees her pcp - TSH/t4 normal - nephrology on board, appreciate recs > Headache, on and off - history of migraines - continue home meds > Hypercalcemia and hyperphosphatemia of renal failure, POA, chronic. Active -Resume home Cinacalcet -Resume home Sevelamer >Depression and anxiety, POA, chronic. Stable -Resume home Bupropion -Resume home Venlafaxine DVT prophylaxis : Heparin Subq FEN: Renal diet Exam Vital Signs (Last) Date Time Temp Pulse Resp B/P Pulse Ox O2 Delivery O2 Flow Rate FiO2 06/14/17 08:45 36.8 80 16 136/86 99 Room Air Test 06/10/17 22:28 06/11/17 01:05 06/11/17 08:05 06/12/17 06:09 Magnesium Level 2.1mg/dL (1.6-2.6) Total Bilirubin 0.2mg/dL (0.0-1.2) Aspartate Amino Transf (AST/SGOT) 18U/L (0-50) Alanine Aminotransferase (ALT/SGPT) 15U/L (0-32) Alkaline Phosphatase 166U/L (25-150) Troponin T 0.010ug/L (0.0-0.011) Total Protein 7.6g/dL (6.4-8.4) Albumin 4.1g/dL (3.4-5.0) Hold Purple Top Tube Received (Received) Lactic Acid Level 1.2mmol/L (0.4-2.0) Hold [place] Top Tube Received (Received) Cortisol 11.2ug/dL (.) Hold [place] Top Tube Received (Received) Sodium Level 141mEq/L (134-144) Potassium Level 4.2mEq/L (3.5-5.2) Chloride Level 98mEq/L (97-108) Carbon Dioxide Level 26mmol/L (18-29) Blood Urea Nitrogen 20mg/dL (6-24) Creatinine 5.44mg/dL (0.57-1.00) Estimat Glomerular Filtration Rate 12mL/min (>59) Glucose Level 86mg/dL (60-99) Calcium Level 8.3mg/dL (8.5-10.1) Procalcitonin 0.51ng/mL (0.00-0.08) Thyroid Stimulating Hormone (TSH) 4.360uIU/mL (0.450-4.500) Free Thyroxine 1.02ng/dL (0.82-1.77) Test 06/13/17 07:45 06/14/17 06:21 Cortisol Baseline 8.5ug/dL (.) Cortisol Stimulation Collect Time 2 19.5ug/dL (Not Estab.) Cortisol Stimulation Collect Time 3 24.2ug/dL (Not Estab.) White Blood Count 4.6th/mm3 (3.8-10.1) Red Blood Count 3.28mil/mm3 (3.90-5.20) Hemoglobin 10.5g/dL (12.0-15.6) Hematocrit 33.9% (35.0-46.0) Mean Corpuscular Volume 103.4fL (81-100) Mean Corpuscular Hemoglobin 32.0pg (27.0-35.0) Mean Corpuscular Hemoglobin Concent 31.0% (32.0-37.0) Red Cell Distribution Width 13.6% (12.3-15.4) Platelet Count 143bil/L (150-400) Neutrophils (%) (Auto) 60.2% (40-74) Lymphocytes (%) (Auto) 27.0% (14-46) Monocytes (%) (Auto) 7.0% (4-12) Eosinophils (%) (Auto) 4.0% (0-5) Basophils (%) (Auto) 0.9% (0-3) Discharge Medications Discharge Medications Bupropion ER (Wellbutrin SR) 150 Mg Tablet.er 150 MG PO DAILY (Reported) Cinacalcet (Sensipar) 30 Mg Tablet 60 MG PO DAILY (Reported) Gabapentin (Gabapentin) 300 Mg Capsule 300 MG PO DAILY (Reported) Midodrine (Midodrine) 5 Mg Tablet 2.5 MG PO 08,12,16 Prescribed by: CLIFTON COLIN MD Omeprazole (Omeprazole) 20 Mg Capsule.dr 20 MG PO DAILY (Reported) Sevelamer Carbonate (Renvela) 800 Mg Tablet 2,400 MG PO TIDAC (Reported) Venlafaxine ER (Venlafaxine ER) 150 Mg Cap.er.24h 150 MG PO DAILY (Reported) As needed Fluticasone Propionate (Fluticasone Propionate Nasal) 16 Gm [place].susp 1 SPRAY NS BID PRN PRN Secretion Control (Reported) Ondansetron (Zofran) 8 Mg Tablet 8 MG PO Q8H PRN PRN For Nausea (Reported) Followup Plan Discharge Diet: Low fat, Low Sodium, Renal Diet Follow-up Provider: Alfredito Urias MD Follow-up with PCP in: 1 week Time spent 35 mins Clifton Colin MD Jun 14, 2017 11:21
--- NOTE | 2017-06-14 11:47 | NUR ---
Social Work: Discharge / Multidisciplinary Rounds Data: Pt is on day 3 of hospitalization. EMR reviewed, pt discussed in rounds. states pt ready for d/c today. D/C orders are in, disposition is home. No d/c planning needs at this time. ICE DELIVERY DRIVER will continue to follow if needs arise. Assessment: Pt who is independent at baseline. Capable of self care at this time. Plan: Pt will d/c home via POV today. No d/c planning needs at this time. ICE DELIVERY DRIVER will continue to follow if needs arise. ASAD Wang
--- NOTE | 2017-06-14 12:43 | NUR ---
Discharge Pt up dressed ind. Tele monitor d/c. quality control technician notified. IV dc'd without complications, cath intact. Pt dc instructions given, questions answered. Pt daughter arrived for pickup. Pt taken to door, steady gait. All belongings accounted for.
== END 2017-06-14 12:43 | disposition home or self-care (01) | DRG 643 ==
LOC: SED 21:31 → MOC 06-11 09:47
PROVIDERS: ADMIT Internal Medicine; ATTEND Internal Medicine
PROC: 5A1D60Z (ICD-10-PCS; principal; 2017-06-11)
DX: E27.40 Unspecified adrenocortical insufficiency (principal); N18.6 End stage renal disease; I12.0 Hypertensive chronic kidney disease with stage 5 chronic kidney disease or end stage renal disease; I95.9 Hypotension, unspecified; F17.200 Nicotine dependence, unspecified, uncomplicated; G43.909 Migraine, unspecified, not intractable, without status migrainosus; G47.33 Obstructive sleep apnea (adult) (pediatric); E83.39 Other disorders of phosphorus metabolism; F41.8 Other specified anxiety disorders; E83.52 Hypercalcemia; Z90.5 Acquired absence of kidney; Z99.2 Dependence on renal dialysis

== ENCOUNTER 2017-06-22 02:44 | Emergency (ER) | payer MEDICARE ==
[~2017-06-22] VITALS: Ht 154.9 cm; Wt 84.1 kg
[~2017-06-22 02:44] MED LIST changes: +MIDO5TAB PO; -OXYC5TAB72 PO
[2017-06-22 03:01] VITALS: BP 128/75; PULSE 85; RESP 20; O2SAT 100
--- NOTE | 2017-06-22 03:16 | ED.REPORT ---
HPI-Extremity Problem Lower Date of Service Jun 22, 2017 ED Provider: Dr. Jeff Retana MD A 46 year old female with a history of ESRD (polycystic kidney), migraines, cerebral aneurysm, and hypotension on Dialysis 3x per week presents to the ED with left ankle pain secondary to a inversion injury that occurred just prior to arrival. Patient reportedly fell and twisted her left ankle this evening. The patient has been experiencing swelling and pain since onset and has been unable to bear weight since the incident. She denies any other injuries at this time. Nursing Notes Stated Complaint: LEFT ANKLE INJURY/ FALL Chief Complaint: Extremity Trauma Nursing Notes Reviewed: Yes Allergies: Coded Allergies: vancomycin (Verified Allergy, Intermediate, itch, 06/22/17) Scheduled Bupropion ER (Wellbutrin SR) 150 Mg Tablet.er 150 MG PO DAILY Cinacalcet (Sensipar) 30 Mg Tablet 60 MG PO DAILY Gabapentin (Gabapentin) 300 Mg Capsule 300 MG PO DAILY Midodrine (Midodrine) 5 Mg Tablet 2.5 MG PO 08,12,16 Omeprazole (Omeprazole) 20 Mg Capsule.dr 20 MG PO DAILY Sevelamer Carbonate (Renvela) 800 Mg Tablet 2,400 MG PO TIDAC Venlafaxine ER (Venlafaxine ER) 150 Mg Cap.er.24h 150 MG PO DAILY Scheduled PRN Fluticasone Propionate (Fluticasone Propionate Nasal) 16 Gm [place].susp 1 SPRAY NS BID PRN PRN Secretion Control Ibuprofen (Ibuprofen) 400 Mg Tablet 400 MG PO QID PRN PRN For Pain Ondansetron (Zofran) 8 Mg Tablet 8 MG PO Q8H PRN PRN For Nausea General Time Seen by MD: 03:16 Chief Complaint Knee injury left Hx Obtained From: Patient Arrived By: Walk-in Onset Occurred: Just prior to arrival Symptom Duration: Since onset Caused by: Accidental Location: : Ankle left Quality: Painful Severity: Current: Moderate Severity: Maximum: Moderate Associated with: Reports: Swelling, Unable to bear weight Pertinent Negative: Pt denies other symptoms Recent Healthcare: Recent doctor visit, Recent hospitalization Past Medical History Past Medical History Notes: Admit for hernia repair March 2017 Venue Coordinator: Dr. Virgen PCP: Dr. Renea Wilhelm Past Medical History Hypertension Polycystic kidney Migraines Hx of cerebral aneurysms Chronic renal failure on dialysis History of obstructive sleep apnea Hernia Past Surgical History Tubal ligation Uterine ablation Bladder sling Left AV fistula Bilatereal nephrectomys Hernia repair Reports: Tubal ligation Family History Father, at 52 from cerebral aneurysm Mother is 67 with CAD Smoking History Former Smoker Social History Alcohol Use: Denies alcohol use Drug Use: Denies drug use Other Social History: Good social support, Local resident Occupation On disability Ambulatory Status Independent Review of Systems Musculoskeletal: Reports: Joint pain (Left ankle pain), Joint swelling (Left ankle swelling) Complete sys rev & neg: except as marked. Physical Exam Initial Vital Signs Vital Signs (First) Date Time Temp Pulse Resp B/P Pulse Ox O2 Delivery O2 Flow Rate FiO2 06/22/17 03:01 36.8 85 20 128/75 100 Room Air Initial VS: Reviewed Head / Eyes: Atraumatic, Normocephalic, PERRL Neck: Supple, Non-tender, Full range of motion Upper Extremities: Vascular intact, Neuro intact, No swelling, No tenderness Skin: Warm, Dry, No cyanosis Neurologic: Alert, Oriented, Nonfocal Psychiatric: Mood/affect normal, Behavior normal, Normal thought content Lower Extremity / Pelvis / MS: Atraumatic, Inspection NL, Neurologic intact, Vascular intact Ankle / Foot: Atraumatic, Neurologic intact, Vascular intact Left Ankle: Positive: Swelling present..., Tender lateral malleolus, Tenderness present... Good DP and PT pulses General/Constitutional: Awake, Alert, No acute distress Respiratory / Chest: Atraumatic, No respiratory distress Cardiovascular: Peripheral circulation NL, Pulses = bilaterally Interpretation & Diagnostics X-Ray Interpretation Xray Interpretation: IMPRESSION: Negative for fracture X-Ray Ordered: Ankle left Interpretation / Wet Read by: Wet read ED physician Procedures Splint Application - Fx Mgt Splint Application- Fx Mgt: Aircast placed Time: 04:22 Procedure Performed by: Associate Trainer Precise Anatomic Location: Left ankle Post-Procedure / Complications: Cap refill normal, Post splint vascular nl, Post splint neuro nl, Condition improved, Tolerated procedure well, Patient stable Splint Post-Application Eval Extremity Condition: Cap refill < 2 sec, Distal sensation intact, Distal motor Intact, No compartment syndrome Re-Eval/Medical Decision Med Decision/Clinical Course 38-year-old dialysis dependent female with polycystic kidney disease, presents with a twisted ankle. X-ray shows old injury but no acute fracture. Neurovascularly intact. Placed in Aircast over a sweat issue. Crutches provided. Tylenol and/or ibuprofen as needed. Follow up with PCP. Re-Evaluation/Progress : Time of Eval: 04:24 Patient Status: Condition improved Re-Evaluation/Progress Note: Patient is re-evaluated. Splint is applied. She tolerated the aircast well. Her symptoms have improved upon recheck. She is informed of her results and diagnosis. The patient understands and agrees with the intended treatment plan. Counseled Regarding: Diagnosis, Need for follow-up, When/why to return to ED Discharge & Departure Impression: Primary Impression: Left ankle sprain Encounter type: initial encounter Involved ligament of ankle: calcaneofibular ligament Qualified Code: S93.412A - Sprain of calcaneofibular ligament of left ankle, initial encounter Additional Impressions: Chronic renal failure Hemodialysis patient Disposition: Home Discharge Condition All VS Reviewed: Yes Condition: Stable Patient Instructions: Ankle Sprain (GEN), Crutch Instructions (ED), Splint Care (ED) Additional Instructions: Ice frequently over the first twenty-four hours. Elevate whenever possible to reduce swelling. Wear the splint with either the Quentin or a tall sock, the splint , and then a shoe. The shoe must contain the bottom of the splint, such as a tennis shoe. Do not wear with flip-flops or slippers. Remove the splint to sleep. Use the splint and crutches as long as it is tender to bear weight on the foot. Once you can bear weight with a splint, you can stop using the crutches, but continue using the splint for at least another week. Ibuprofen 400 mg for five times daily as needed for pain. May supplement with Tylenol 1 g four times daily. Follow-up with your doctor in the office. Referrals: Alfredito Urias MD (PCP) Scribe Attestation Portions of this note were transcribed by Titus Stein. I, Dr. Retana personally performed the history, physical exam and medical decision-making; I reviewed and confirmed the accuracy of the information in the transcribed note. copies to: Alfredito Urias MD, Christopher W MD Jun 22, 2017 03:16 TITUS STEIN Jun 22, 2017 03:28
[2017-06-22] MEDS ORDERED: IBUP400T22 PO (04:19)
[2017-06-22 04:38] VITALS: BP 128/61; PULSE 81; RESP 18; O2SAT 98
--- NOTE | 2017-06-22 08:50 | DRSVH ---
PROCEDURE: X-RAY LEFT ANKLE, MINIMUM THREE VIEWS ([id number]) INDICATIONS: 46 year-old female with left ankle pain after fall. TECHNIQUE: 3 views of the ankle were acquired. COMPARISON: None. FINDINGS: Bones: No acute fractures or dislocations. Corticated bone fragment lies adjacent to the inferior f ibular tip. Ankle mortise is normally aligned. No suspicious bony lesions. Soft tissues: There is bimalleolar soft tissue swelling. No tibiotalar joint effusion. Achilles ten don appears normal. IMPRESSION: No acute bony injuries of the left ankle. Findings consistent with nonacute nonunited avu lsion fracture or posttraumatic heterotopic ossification adjacent to the inferior fibular tip. Dictated by: Deuce Rueda M.D. on 06/22/2017 at 8:45 Approved by: Deuce Rueda M.D. on 06/22/2017 at 8:47
== END 2017-06-22 04:52 | disposition home or self-care (01) ==
LOC: SED 02:44
DX: S93.412A Sprain of calcaneofibular ligament of left ankle, initial encounter (principal); W18.30XA Fall on same level, unspecified, initial encounter; X50.1XXA Overexertion from prolonged static or awkward postures, initial encounter; Y92.009 Unspecified place in unspecified non-institutional (private) residence as the place of occurrence of the external cause; Y93.89 Activity, other specified; Y99.8 Other external cause status; I12.9 Hypertensive chronic kidney disease with stage 1 through stage 4 chronic kidney disease, or unspecified chronic kidney disease; N18.6 End stage renal disease; Q61.3 Polycystic kidney, unspecified; G43.909 Migraine, unspecified, not intractable, without status migrainosus; Z99.2 Dependence on renal dialysis; Z86.79 Personal history of other diseases of the circulatory system; Z87.891 Personal history of nicotine dependence; Z88.1 Allergy status to other antibiotic agents

== ENCOUNTER 2017-07-28 13:13 | Inpatient (IN) | payer MEDICARE, MEDICAID ==
[2017-07-28] VITALS (10 sets, daily range): BP systolic 121–153; BP diastolic 85–102; PULSE 73–100; RESP 18–20; O2SAT 98–100
[~2017-07-28] VITALS: Ht 154.9 cm; Wt 86.1 kg
[~2017-07-28 13:13] MED LIST changes: +IBUP400T22 PO
--- NOTE | 2017-07-28 13:23 | ED.REPORT ---
HPI-General Illness Date of Service Jul 28, 2017 ED Provider: Addy Vargas Patient is a 46 year old female with a hx of HTN and bilateral nephrectomies on HD who presents to the ED complaining of malaise onset one week ago. Associated symptoms include nausea, vomiting, abdominal pain, chills, and myalgia. Her abdominal pain is rated 4/10 in severity, crampy, constant, and localized to the LLQ without radiation. She denies fever, cough, sore throat, chest pain, SOB , numbness, weakness, flank pain, back pain, rash, itching, or any other symptoms. Patient was last dialyzed 3 days ago, as she was too sick to attend her scheduled appointment 4 days ago. She is due for dialysis tonight. Did have a looser stool today, however no diarrhea otherwise. Nursing Notes Stated Complaint: LETHARGIC Chief Complaint: Female Abdominal Pain Nursing Notes Reviewed: Yes Allergies: Coded Allergies: vancomycin (Verified Allergy, Intermediate, itch, 06/22/17) Scheduled Bupropion ER (Wellbutrin SR) 150 Mg Tablet.er 150 MG PO DAILY Cinacalcet (Sensipar) 30 Mg Tablet 60 MG PO DAILY Gabapentin (Gabapentin) 300 Mg Capsule 300 MG PO DAILY Midodrine (Midodrine) 5 Mg Tablet 2.5 MG PO 08,12,16 Omeprazole (Omeprazole) 20 Mg Capsule.dr 20 MG PO DAILY Sevelamer Carbonate (Renvela) 800 Mg Tablet 2,400 MG PO TIDAC Venlafaxine ER (Venlafaxine ER) 150 Mg Cap.er.24h 150 MG PO DAILY Scheduled PRN Fluticasone Propionate (Fluticasone Propionate Nasal) 16 Gm [place].susp 1 SPRAY NS BID PRN PRN Secretion Control Ibuprofen (Ibuprofen) 400 Mg Tablet 400 MG PO QID PRN PRN For Pain Ondansetron (Zofran) 8 Mg Tablet 8 MG PO Q8H PRN PRN For Nausea General Time Seen by MD: 13:23 Chief Complaint Not feeling well Hx Obtained From: Patient Arrived By: Walk-in Onset Occurred: 1 week ago Symptom Duration: Since onset Location: : Abdomen Quality: Cramping Radiation: : Does not radiate Severity: Current: Pain level 4 out of 10 Severity: Maximum: Pain level 4 out of 10 Associated with: Reports: Nausea, Vomiting Additional Notes: diarrhea Pertinent Negative: Pt denies other symptoms Recent Healthcare: Recent doctor visit Past Medical History Past Medical History Notes: Admit for hernia repair March 2017 Events Director: Dr. Virgen PCP: Dr. Renea Wilhelm Past Medical History Hypertension Polycystic kidney Migraines Hx of cerebral aneurysms Chronic renal failure on dialysis History of obstructive sleep apnea Hernia Valvular heart diease GERD arthritis DDD Depression anxiety chronic back pain Past Surgical History Tubal ligation Uterine ablation Bladder sling Left AV fistula Bilatereal nephrectomys Hernia repair x3 Reports: Tubal ligation Family History Father, at 52 from cerebral aneurysm Mother is 67 with CAD Smoking History Former Smoker Social History Alcohol Use: Denies alcohol use Drug Use: Denies drug use Other Social History: Good social support, Local resident Occupation On disability Ambulatory Status Independent Review of Systems Full Review of Systems Constitutional: Reports: Chills, Malaise, Denies: Fever Ears / Nose / Throat: Denies: Sore throat Respiratory: Denies: Non-productive cough, Shortness of breath Cardiovascular: Denies: Chest pain GI: Reports: Abdominal pain, Diarrhea, Nausea, Vomiting Female: Denies: Flank pain Musculoskeletal: Denies: Back pain Skin: Denies Rash Allergy / Immune: Denies: Itching Neurologic: Denies: Numbness, Weakness Complete sys rev & neg: except as marked. Physical Exam Nursing note and vitals reviewed. Mildly hypertensive. All other vital signs grossly w/in normal limits. Constitutional: Well-developed, well-nourished. Mildly diaphoretic. Head: Normocephalic and atraumatic. Mouth/Throat: Oropharynx is clear and moist. No oropharyngeal exudate. Eyes: EOM are normal. Pupils are equal, round, and reactive to light. Neck: Supple, no tracheal deviation. Cardiovascular: Normal rate, regular rhythm. Equal and intact distal pulses throughout. Pulmonary/Chest: Effort normal and breath sounds normal. No respiratory distress. Abdominal: Soft. No distension. Mild LLQ tenderness. No focal tenderness. No rebound, or guarding. Bowel sounds present. Musculoskeletal: Range of motion grossly intact, moving all extremities. No edema or tenderness appreciated. Neurological: AOx3. Grossly nonfocal exam. Strength and sensation intact and equal to bilateral upper and lower extremities. Skin: Warm and moist, no rashes or pallor appreciated. Psychiatric: Appropriate mood and affect. Behavior appears normal. Vital Signs Vital Signs Date Time Temp Pulse Resp B/P Pulse Ox O2 Delivery O2 Flow Rate FiO2 07/28/17 14:44 74 18 121/85 98 Room Air 07/28/17 13:15 37.0 78 18 153/102 100 Room Air Initial VS: Reviewed Interpretation & Diagnostics Lab Results Interpretation Result Diagram: 07/28/17 1359 07/28/17 1359 Test 07/28/17 13:59 White Blood Count 7.5th/mm3 (3.8-10.1) Red Blood Count 3.47mil/mm3 (3.90-5.20) Hemoglobin 11.1g/dL (12.0-15.6) Hematocrit 34.8% (35.0-46.0) Mean Corpuscular Volume 100.3fL (81-100) Mean Corpuscular Hemoglobin 32.0pg (27.0-35.0) Mean Corpuscular Hemoglobin Concent 31.9% (32.0-37.0) Red Cell Distribution Width 15.1% (12.3-15.4) Platelet Count 169bil/L (150-400) Neutrophils (%) (Auto) 68.4% (40-74) Lymphocytes (%) (Auto) 22.8% (14-46) Monocytes (%) (Auto) 6.7% (4-12) Eosinophils (%) (Auto) 1.5% (0-5) Basophils (%) (Auto) 0.3% (0-3) Prothrombin Time 10.0sec (8.1-12.5) Prothromb Time International Ratio 0.94ratio Sodium Level 139mEq/L (134-144) Potassium Level 7.6mEq/L (3.5-5.2) Chloride Level 90mEq/L (97-108) Carbon Dioxide Level 24mmol/L (18-29) Blood Urea Nitrogen 69mg/dL (6-24) Creatinine 12.57mg/dL (0.57-1.00) Estimat Glomerular Filtration Rate 5mL/min (>59) Glucose Level 96mg/dL (60-99) Lactic Acid Level 1.4mmol/L (0.4-2.0) Calcium Level 9.7mg/dL (8.5-10.1) Magnesium Level 2.0mg/dL (1.6-2.6) Total Bilirubin 0.2mg/dL (0.0-1.2) Aspartate Amino Transf (AST/SGOT) 17U/L (0-50) Alanine Aminotransferase (ALT/SGPT) 19U/L (0-32) Alkaline Phosphatase 138U/L (25-150) Total Protein 7.1g/dL (6.4-8.4) Albumin 4.1g/dL (3.4-5.0) Lipase 67U/L (13-60) ECG Interpretation ECG Interpretation: Sinus rate 66 no acute ischemic changes Time: 15:08 Interpreted by: ED physician CT Abd / Pelvis Interpretation IMPRESSION: 1. Postsurgical changes redemonstrated status post bilateral nephrectomies. No mass lesions or fluid collections demonstrated in the surgical beds. 2. Numerous hepatic cysts redemonstrated likely related to patient's history of polycystic kidney disease. 3. Increase in size of a cystic lesion in the region of the cervix. Further evaluation be obtained with pelvic MRI if clinically indicated. Dictated by: Oliverio Anguiano M.D. on 07/28/2017 at 15:12 Approved by: Oliverio Anguiano M.D. on 07/28/2017 at 15:17 Study type: Abdominal CT no contrast Interpretation / Wet Read by: Interpret - Radiologist Re-Eval/Medical Decision Med Decision/Clinical Course In summary, 46-year-old female with a complex past medical history including bilateral nephrectomies on dialysis presenting to the ED for evaluation of generalized malaise, fatigue, and abdominal pain over the past several days. Differential is broad and includes metabolic abnormality, acute intra-abdominal process such as small bowel obstruction, appendicitis, etc., acute infectious process including viral illness, etc. She does have some mild tenderness on examination; CT scan of the patient's abdomen does not demonstrate any acute abnormalities that would account for her symptoms; there is an increase in size of a cystic lesion around her cervix - I discussed this with the patient, including the need for outpatient follow-up. She was already aware of this area , and agrees to follow up. Laboratory studies notable for a potassium of 7.6, BUN of 69, creatinine of 12.57, LFTs grossly within normal limits, hemoglobin of 11.1, stable from previous. EKG demonstrates sinus rhythm with no acute ischemic changes, no obvious electrocardiographic signs of potassium toxicity. Nephrology consulted as per below; appreciate recommendations. Patient given calcium gluconate, insulin, dextrose, and sodium bicarbonate for her hyperkalemia. No Kayexalate needed at this time as she will be getting dialyzed later this evening. Given the above, plan admission for further management and evaluation. Patient agreeable to the plan as stated, no further questions. Time of Eval: 15:18 Re-Evaluation/Progress Note: Discussed plan for admission. Patient understands and agrees with plan. All questions addressed at this time. Consultation #1: Referral / Consult Name: Cem Hammer MD Consulted With: Nephrology Call Returned at: 15:20 Manager [place]: Agrees with eval, Agrees with plan Note: Discussed pt's case. Will send nurse down to dialyze pt Guillaume agrees with plan for calcium gluconate, insulin, glucose, and sodium bicarb. no Kayexalate at this time Consultation #2: Consulted With: Hospitalist Manager [place]: Agrees with eval, Agrees with plan, Accepts admit Note: Discussed with Dr. Richards, who accepted admission. She agrees with the plan. Counseled Regarding: Diagnosis, Lab results, Need for admission Discharge & Departure Primary Impression: Hyperkalemia Disposition: ADMITTED TO HOSPITAL Discharge Condition All VS Reviewed: Yes Condition: Stable Referrals: Alfredito Urias MD (PCP) Crit Care Except Billable Proc Time Spent: 30-74 minutes Services Performed: Patient management by me, Time spent at bedside, Reviewing test results, Reviewing imaging, Discussing patient care, Documentation in record Critical Care Notes: Please see MDM. I spent 35 minutes of critical care time with this patient, independent of procedures. Monica Attestation Portions of this note were transcribed by Jaleel Oneill. I, Dr. Vargas personally performed the history, physical exam and medical decision-making; I reviewed and confirmed the accuracy of the information in the transcribed note. Signed by: Monica Portre, 07/28/17 copies to: Alfredito Urias MD, William B MD Jul 28, 2017 13:23 JALEEL ONEILL Jul 28, 2017 13:50
[2017-07-28] MEDS: Ondansetron 2 mg/mL 2 mL Inj IVPUSH PRN ×2 (14:02→14:40)
[2017-07-28] MEDS: HYDROmorphone 0.5 mg/0.5 mL iSecure Syringe IVPUSH PRN ×4 (14:02→18:34)
[2017-07-28 14:11] LABS: BASOPHILS % (AUTO) 0.3 % (0-3); EOSINOPHILS % (AUTO) 1.5 % (0-5); MONOCYTES % (AUTO) 6.7 % (4-12); Mean Corpuscular Volume 100.3 fL (81-100); NEUTROPHILS % (AUTO) 68.4 % (40-74); Platelet Count 169 bil/L (150-400)
[2017-07-28 14:34] LABS: INR 0.94 ratio
--- NOTE | 2017-07-28 15:19 | DRSVH ---
PROCEDURE: CT KUB ([id number]) INDICATIONS: abd pain, n/v; dialysis patient TECHNIQUE: Noncontrast 5 mm thick sections acquired from the diaphragms to the symphysis. 5 mm thick coronal an d sagittal reformats were then performed. For radiation dose reduction, the following was used: aut omated exposure control, adjustment of mA and/or kV according to patient size. COMPARISON: [facility], CT, CT ABD PELVIS WO CON, 01/17/2017, 8:50. FINDINGS: Image quality: Excellent. Lung bases: There is minimal dependent atelectasis. Heart size is normal. Urinary system: There are 4 surgical changes redemonstrated status post bilateral nephrectomies. No abnormal mass lesions or collections within the surgical beds. The urinary bladder is nondistended. Other solid organs: There are numerous varying sizes redemonstrated throughout the liver which are si milar in appearance to the prior study. The spleen is normal in size the gallbladder appears within normal limits without calcified gallstones. Pancreas is normal in contours. No adrenal nodules. Peritoneum and bowel: Unenhanced bowel loops demonstrate normal wall thickness and caliber. No free fluid or air. Nodes and vessels: No retroperitoneal or mesenteric adenopathy by size criteria. Aorta and inferior vena cava are normal in caliber. Abdominal wall: No ventral hernias. Pelvis: There is a cystic structure in the region of the cervix which has increased in size compared to the prior study, measuring up to approximately 3.3 x 2.9 cm in transverse dimension. No free pel yolanda fluid. No inguinal hernias or adenopathy. Bones: No suspicious bony lesions. No vertebral body compression fractures. IMPRESSION: 1. Postsurgical changes redemonstrated status post bilateral nephrectomies. No mass lesions or flui d collections demonstrated in the surgical beds. 2. Numerous hepatic cysts redemonstrated likely related to patient's history of polycystic kidney di sease. 3. Increase in size of a cystic lesion in the region of the cervix. Further evaluation be obtained with pelvic MRI if clinically indicated. Dictated by: Oliverio Anguiano M.D. on 07/28/2017 at 15:12 Approved by: Oliverio Anguiano M.D. on 07/28/2017 at 15:17
[2017-07-28] MEDS ORDERED: Calcium GLUCOnate 10% (Gm) 1 Gm/10 mL Inj IVPUSH PRN (15:20)
[2017-07-28] MEDS ORDERED: Insulin Human REGular-Omnicell 100 Unit/mL IV ONE (15:20)
[2017-07-28] MEDS ORDERED: Sodium Bicarb (50 mEq) 8.4% 1 mEq/mL 50 mL Syringe IVPUSH ONE (15:20)
[2017-07-28] MEDS: 0.9% Sodium Chloride 1,000 ML IV ONE ×2 (15:22→15:30)
[2017-07-28] MEDS: Dextrose 10% 250 ML IV SCH ×6 (15:59→17:59)
--- NOTE | 2017-07-28 17:06 | PCM.HPMED ---
Subjective Date of Service Jul 28, 2017 Primary Provider: Admitting Physician: Jennifer Richards DO Primary Care Physician: Alfredito Urias MD Attending Physician: Jennifer Richards DO Chief Complaint: Malaise, abdominal pain History of Present Illness: Zohreh Cuellar, 46 yo, female with a history of bilateral nephrectomy secondary to polycystic kidney disease, dialysis, and migraines. Presents with a one-week history of malaise with associated abdominal pain. Patient states that her right lower quadrant pain began the night of 07/22, waking her from her sleep. She describes the pain as 6/10 transient, lasting for a few hours at a time then resolving for a few hours. She denies radiation, no exacerbating or remitting factors. Associated sx include fatigue, decreased appetite, nausea, vomiting multiple times within the last three days, diarrhea which improved with Imodium, lower quadrant cramping, chills, muscle aches. She also admits to rhinorrhea, soar throat, and headache. Denies fever, constipation, rash, edema , swelling, changes to vision or hearing, hoarseness, cough, sputum production, and bloating. Pt has a prior hx of C dif, but states that this episode is much different than previous. Patient is also status post hernia repair from central incisional secondary to nephrectomy. Patient recently returned from a trip to [place]. Patient dialyzed 3 days ago. In the ED the patient was found to have elevated BUN/creatinine, as well as potassium of 7.6. Patient was subsequently loaded with sodium bicarbonate, calcium gluconate, insulin/dextrose, emergent dialysis was also arrange for the patient upon hospital admission. Review of Systems: Review of systems negative except as noted in history of present illness Allergies Coded Allergies: vancomycin (Verified Allergy, Intermediate, itch, 06/22/17) Dolores Tree (Verified Allergy, Mild, 07/28/17) Uncoded Allergies: seasonal allergies (Allergy, Mild, 07/28/17) Home Medications Bupropion ER (Wellbutrin SR) 150 Mg Tablet.er 150 MG PO DAILY Cinacalcet (Sensipar) 30 Mg Tablet 60 MG PO DAILY Gabapentin (Gabapentin) 300 Mg Capsule 300 MG PO DAILY Omeprazole (Omeprazole) 20 Mg Capsule.dr 20 MG PO DAILY Sevelamer Carbonate (Renvela) 800 Mg Tablet 2,400 MG PO TIDAC Venlafaxine ER (Venlafaxine ER) 150 Mg Cap.er.24h 150 MG PO DAILY Fluticasone Propionate (Fluticasone Propionate Nasal) 16 Gm [place].susp 1 SPRAY NS BID PRN PRN Secretion Control Ibuprofen (Ibuprofen) 400 Mg Tablet 400 MG PO QID PRN PRN For Pain Ondansetron (Zofran) 8 Mg Tablet 8 MG PO Q8H PRN PRN For Nausea PMH Hypertension Polycystic kidney Migraines Hx of cerebral aneurysms Chronic renal failure on dialysis History of obstructive sleep apnea Hernia Valvular heart diease GERD arthritis DDD Depression anxiety chronic back pain Surgical History Tubal ligation Uterine ablation Bladder sling Left AV fistula Bilatereal nephrectomys Hernia repair x3 Reports: Tubal ligation Family History Father, at 52 from cerebral aneurysm Mother is 67 with CAD Social History Hx Alcohol Use: No Hx Substance Use: No Hx Tobacco Use: Yes Smoking Status: Former Smoker Exam Vital Signs Vital Sign - Last Date Time Temp Pulse Resp B/P Pulse Ox O2 Delivery O2 Flow Rate FiO2 07/28/17 16:56 37.0 73 19 126/86 100 Room Air Exam General: No acute distress, well-developed, well-nourished Head: Normocephalic, atraumatic. External ears without defect. Eyes: Pupils equal, round, and reactive to light and accommodation. Anicteric sclerae, moist conjunctivae. Neck: Normal range of motion, no lymphadenopathy noted Cardiovascular: Regular rate and rhythm with no murmurs, rubs, or gallops appreciated Pulmonary: Clear to auscultation bilaterally with no crackles, wheezes, or rhonchi. Normal respiratory effort with no use of accessory muscles. Abdomen: Bowel tones present. Soft, obese, nontender, nondistended. Extremities: No clubbing, cyanosis, edema, L upper extremity fistula present with palpable thrill Skin: Normal temperature, turgor, and texture; no rash, ulcers, or subcutaneous nodules appreciated. Neurological: Cranial nerves grossly intact. Reflexes, coordination, and sensory function within normal limits. Normal muscle strength, tone, and bulk. Psychiatric: Normal mood and affect. Alert and oriented to person, place, and time Lab and Diagnostics Result Diagram: 07/28/17 1359 07/28/17 1359 X-Rays, CTs and MRIs CT KUB IMPRESSION: 1. Postsurgical changes redemonstrated status post bilateral nephrectomies. No mass lesions or fluid collections demonstrated in the surgical beds. 2. Numerous hepatic cysts redemonstrated likely related to patient's history of polycystic kidney disease. 3. Increase in size of a cystic lesion in the region of the cervix. Further evaluation be obtained with pelvic MRI if clinically indicated. Dictated by: Oliverio Anguiano M.D. on 07/28/2017 at 15:12 Approved by: Oliverio Anguiano M.D. on 07/28/2017 at 15:17 Assessment & Plan Patient is a 46 year old female with a hx of HTN and bilateral nephrectomies on HD who presents to the ED complaining of malaise onset one week ago associated with nausea/vomiting, 6/10 RLQ abdominal pain, chills. Acute RLQ abdominal pain, POA, active Possibly secondary to history of diarrhea, patient states that appendectomy completed in 2014 showed cancerous changes without local invasion. Previous colonoscopy 5-10 years ago per patient history, no findings per patient CT KUB shows cystic lesion in the region of the cervix, increased in size from previous study, radiology suggest follow-up MRI Abdomen not tender to palpation, currently no signs of infection, no concern for ischemic bowel at this time, possible diverticulitis as this would not appear on CT KUB - Stool PCR panel to rule out infectious causes - Stool guaiac pending - Consider CT scan with contrast if stool guaiac positive. - TSH pending - Patient received hydromorphone in the emergency department for pain, states that pain relieved from 6/10 to 4/10 Acute Hyperkalemia, POA, Active - Potassium on admission 7.6 - Pt recieved Sodium bicarb, Calcium gluconate, and Insulin/dextrose in the ED followed by Emergent dialyis on the floor. - Initiate Kayexalate 15mg BID post dialysis, increase as needed. Potassium levels will likely be increased tomorrow as all K+ was pushed intracellularly prior to dialysis. - Re-check Potassium levels in the AM, titrate Kayexalate doses accordingly Bilateral nephrectomy secondary to Polycystic kidney disease - BUN/Creatinine reflective of anephric status - Dialysis completed on 07/28 - Last dialysis completed 07/25 - continue sevelamer for phosphate binding - Continue Cinacalcet for Ca2+ binding - Continue to monitor Macrocytic anemia, likely chronic, active Secondary to anephric status - Vit D/B12 levels pending Allergic rhinitis, present on admission, active - Continue fluticasone Hx of Migraines -Fioricet for pain PRN History of obstructive sleep apnea - Patient states that she does not use CPAP at home - Counseled regarding possible effects of sleep apnea - Encouraged patient to consider further treatment as an outpatient GERD - Continue home omeprazole Chronic Arthritis - Continue Ibuprofen PRN History of Depression/Anxiety - Continue venlafaxine - Continue bupropion Chronic back pain secondary to DDD, stable - Continue Gabapentin - Patient states that she recently discontinued opioid treatment for this condition - Pain currently managed with physical therapy and ibuprofen as needed Disposition: Patient admitted under inpatient status with expected length of stay > 2 midnights for severity of present symptoms, complexities of treatment plan and risk for adverse event VTE Prophylaxis: Sub-Q Heparin (Unfractionated) Resuscitation Status: CPR: Attempt Resuscitation Time spent 60 minutes Attending Statement The patient was seen and examined together with Dr. Galloway on 07/28/17 and I have added additional information to the note above. Felice Galloway DO Jul 28, 2017 17:06 Jennifer Richards DO Jul 29, 2017 13:07
--- NOTE | 2017-07-28 18:56 | NUR ---
Dialysis Note dialysis provided in room 2006 pt found in stable condition, sitting up talking to residents, vitals stable access washed soap/water, cleaned with chloraprep, site benign, no signs of infection, cannulated with 15 gauge needles x1 attempt per site heparin 1000 units/ml administered treatment started without difficulty, pt tolerated well Addendum: 07/28/17 at 2226 by ALIE LONG RN Total treatment time 4:00 total net removed 3700ml treatment ended, blood returned clamps x10 minutes per site, bleeding stopped, gauze and tape applied, bruit/thrill present, pt tolerated treatment well, report given to Esperanza CARUSO, pt in stable condition, no complaints
[2017-07-28] MEDS ORDERED: Alum-Mag Hydrox-Simeth 30 mL Suspension PO PRN (19:05)
[2017-07-28] MEDS ORDERED: Polyethylene Glycol (PEG) 17 Gm Powder PO PRN (19:05)
[2017-07-28] MEDS ORDERED: Ondansetron 2 mg/mL 2 mL Inj IVPUSH PRN (19:05)
[2017-07-28] MEDS ORDERED: Fluticasone 0.05% 15 Spray/2 Gm 16 Gm Nasal Spray NOSTRIL PRN (19:50)
[2017-07-28] MEDS ORDERED: METH99.22 TP (20:13)
[2017-07-28] MEDS ORDERED: PRAM0.122 PO (20:13)
[2017-07-28] MEDS ORDERED: CHOL200025 PO (20:13)
[2017-07-28] MEDS ORDERED: ASPI-1148 PO (20:13)
[2017-07-28] MEDS ORDERED: CINA60TA PO (20:14)
[2017-07-29] MEDS: Butalbital-Acet-Caffeine Tablet PO PRN ×2 (00:09→08:15)
[2017-07-29] MEDS: oxyCODONE-Acetamin 5-325 mg Tablet PO PRN ×2 (00:09→13:39)
[2017-07-29] MEDS: Heparin 5,000 Unit/mL Inj SUBQ SCH ×2 (00:46→07:57)
--- NOTE | 2017-07-29 02:56 | NUR ---
Pain Patient complained of ongoing abdominal pain and headache. Orders for percocet received. Patient refused to take the kayexalate in fear that she would be incontinent in the bed as she has previously had happen. Patient reports if she needs it still, she will take it in the morning. Appears stable and comfortable post dialysis. Will continue to monitor.
[2017-07-29 03:40] VITALS: BP 114/75; PULSE 96; RESP 16; O2SAT 97
[2017-07-29 07:29] LABS: Mean Corpuscular Hemoglobin 31.8 pg (27.0-35.0); Mean Corpuscular Volume 101.9 fL (81-100)
[2017-07-29] MEDS ORDERED: Pantoprazole 20 mg ER24 Tablet PO SCH (07:30)
[2017-07-29 07:50] VITALS: BP 120/87; PULSE 91; RESP 16; O2SAT 97
[2017-07-29] MEDS ORDERED: Venlafaxine XR 75 mg ER24 Capsule PO SCH (08:00)
[2017-07-29] MEDS ORDERED: buPROPion SR 150 mg ER12 Tablet PO SCH (08:30)
--- NOTE | 2017-07-29 08:48 | NUR ---
Social Work: Initial Assessment D: Per EMR review, pt is a 46 year old female admitted for hyperkalemia. Pt is Medicare with DS Supplement; pt has no LTC insurance or VA benefits. PCP is Alfredito Urias MD. NOK is Sujey Elaine, mother, . Advanced directives information provided by [employer]. Readmit score is high, 4/8. Pt is on day 1 of stay. Capacity for self care discussed with provider; no concerns at this time. No social work needs identified for discharge; pt ambulating I since admission. [employer] met with the patient at bedside. Sw role explained, contact information and dcp checklist provided. See initial assessment. Pt lives at home with her grandfather. The patient is I at baseline, uses no DME and drives. Pt has never had HH or skilled rehab. [place] [facility] Pt anticipates discharge home via POV once medically stable; she identifies no sw needs and states that she has no concerns for d/c home. Pt states her mother or grandfather will transport her home. A: Pt who is I at baseline. P: Anticipate pt to discharge home via POV and no sw needs; [employer] to continue to follow to assess for unmet discharge needs ASAD Green Addendum: 07/29/17 at 0849 by TJ BOWERS Amended: Links added.
[2017-07-29 08:56] VITALS: PULSE 93
--- NOTE | 2017-07-29 10:22 | CONS ---
[address] [address] CONSULTATION REPORT PATIENT: ALESHIA SOLORIO : 1970 MR#: [id number] ADMIT: 07/28/2017 JOB ID: [id number] CORRECTED REPORT: DATE OF SERVICE: 07/29/2017 HISTORY: The patient is a very pleasant, 46-year-old, female, who was well known to me from previous consultations. She has a history of end-stage renal disease, and was admitted to [facility] for acute hyperkalemia. Renal consultation is being sought for further evaluation and management of her end-stage renal disease. She states that for approximately the last five days, she has had intermittent nausea, vomiting, and diarrhea. This has been associated with nasal congestion, mild fever, chills, and cough which has been productive of scant amounts of sputum. She was scheduled for her dialysis treatment yesterday and, because of profound weakness and general malaise, she was brought into the emergency department. In the emergency department, she was found to have a potassium of 7.6, and she was urgently dialyzed. She was also given several doses of Kayexalate. The etiology of her chronic kidney disease is due to autosomal dominant polycystic kidney disease. She has undergone a bilateral nephrectomy in preparation for a renal transplant for which she is on the active list for. She has a history of some hepatic involvement and a history of august aneurysm in the past. She denies any recent headache or chest pain. Since dialysis, she states she feels considerably better and has not had any further nausea, vomiting, diarrhea, or cough. Her potassium this morning is 5.1. PAST MEDICAL HISTORY: 1. Significant for end-stage renal disease-dialysis dependent. 2. Bilateral nephrectomy secondary to polycystic kidney disease. 3. Autosomal dominant polycystic kidney disease. 4. Sleep apnea. 5. Hypertension. 6. Degenerative disc disease. 7. Hypertension with hypertensive heart disease. 8. GERD, for which she is taking a proton pump inhibitor. PAST SURGICAL HISTORY: Significant for bilateral nephrectomy, hernia repair x3, tubal ligation, left arterial venous fistula, bladder suspension surgery, and uterine ablation. ALLERGIES: 1. VANCOMYCIN. 2. A NUMBER OF ENVIRONMENTAL ALLERGIES. SOCIAL HISTORY: She currently denies use of alcohol, tobacco, or illicit drugs, but does have a history in the past of tobacco use. She is normally quite active in her numerous activities of daily living for which she normally performs without significant problems or restriction. FAMILY HISTORY: Remarkable for her father, who at age 52 of a cerebral aneurysm, and her mother is alive at age 67, has a history of coronary artery disease. REVIEW OF SYSTEMS: Is fully detailed above. Otherwise is noncontributory. Furthermore, she denies any rashes, arthralgias, or significant changes in weight. MEDICATIONS: At time of admission, include Wellbutrin, cinacalcet, gabapentin, midodrine, omeprazole, Renvela, and venlafaxine. PHYSICAL EXAMINATION: Revealed a mildly obese, 46-year-old, white female, who was alert and oriented x3, in no distress at time of my evaluation. Her blood pressure is 120/87 with a pulse rate of 96. HEENT examination is remarkable for a sallow complexion and mildly pale sclerae. Cornea, conjunctivae, pupils, and extraocular muscles were within normal limits. Neck is supple without adenopathy, thyromegaly or jugular venous distention. Lungs are clear to auscultation. Heart is regular and rhythmical with a soft systolic murmur. Abdomen is soft, without any tenderness, rebound, guarding, masses or hepatosplenomegaly. Extremities do not show any evidence of any clubbing, cyanosis, or edema. Skin turgor is good. There is no evidence of any rashes or joint effusions. LABORATORY EXAMINATION: This morning, her white count is 6.4, hemoglobin 11.5, hematocrit 36.9, MCV is 101.9, with normal MCH, platelet count is 161, with a normal differential. This morning, her sodium is 138, potassium 5.1, chloride 94, bicarbonate 25, BUN and creatinine were 25 and 6.1, respectively. Liver function studies were within normal limits. IMPRESSION: 1. End-stage renal disease-dialysis dependent. 2. Autosomal dominant polycystic kidney disease. 3. Hyperkalemia. RECOMMENDATION: From my point of view, she can be discharged today. I would hold any further Kayexalate for this patient. Once again, I would like to thank you for allowing me to participate in the care of this most pleasant interesting patient. I will be following her closely with you. Corrected by RAJEEV 08/07/17 at 8:18am DOS.
[2017-07-29] MEDS ORDERED: OXYC1TAB24 PO (11:34)
--- NOTE | 2017-07-29 11:53 | PCM.DIMED ---
Felice Galloway DO 07/29/17 1153: Discharge Instructions Date of Service Jul 29, 2017 Dates of Hospitalization Jul 28, 2017 at 16:19 Discharge Diagnosis Discharge Diagnosis Acute RLQ abdominal pain Acute Hyperkalemia Bilateral nephrectomy secondary to Polycystic kidney disease Macrocytic anemia Allergic rhinitis Hx of Migraines History of obstructive sleep apnea GERD Chronic Arthritis History of Depression/Anxiety Chronic back pain secondary to DDD Medication Instructions Additional med instructions Please take medications as previously prescribed. In addition, we have also prescribed oxycodone for abdominal pain as needed. You may take up to 10mg every 6 hours as needed for pain. Please use sparingly. Test Results Test Results A CT KUB completed here shows numerous hepatic cysts likely related to your history of polycystic kidney disease. There was also a cystic lesion in the region of the cervix, for which we suggest followup with a paint roller cover machine setter. Diet Discharge Diet: No restrictions Activity Discharge Activity: No restrictions Call your provider Call your provider for: Fever or Chills, Shortness of breath, Bleeding, Chest pain, Vomitting, Excessive diarrhea, Weakness (unilateral) Patient Instructions Patient Instructions You were admitted to the hospital with concern for your potassium level which was adequately corrected. You have also been experiencing RLQ abdominal pain which we were unable to discover the cause for. Based on your history of appendectomy with carcinoma we would like you to follow up closely with your primary care doctor who may refer you for a PET CT study to rule out any masses in this region. Based on my discussion with radiology we believe this to be the best visualization modality for your situation. Please take medications as described above. Please attend dialysis sessions as scheduled to avoid electrolyte imbalances. Follow-up plan Follow up with primary care as soon as possible. We would also like you to follow up with gynecology for further workup of the pericervical cystic lesion. Continue to follow up with nephrology for dialysis as previously scheduled. Follow-up Provider: Alfredito Urias MD Follow-up with PCP in: 1 week Provider: [facility] Follow-up in: 2 weeks Jennifer Richards DO 07/29/17 1310: Discharge Instructions Attending's Statement The patient was seen and examined together with Dr. Galloway on 07/29/17 and I agree with the history, exam and plan as outlined in the note above. Felice Galloway DO Jul 29, 2017 11:53 Jennifer Richards DO Jul 29, 2017 13:10
--- NOTE | 2017-07-29 12:55 | PCM.ADCARE ---
Advance Care Planning Note Purpose of Encounter: Date: 07/28/17 Diagnosis: Acute hyperkalemia Bilateral nephrectomy secondary to polycystic kidney disease on dialysis Macrocytic anemia GERD Obstructive sleep apnea History of migraines Chronic arthritis History of depression/anxiety Chronic back pain secondary to degenerative disc disease Purpose of encounter: Goals of care Parties in attendance: Decisional capacity: Good Plan: The patient is aware of the current diagnosis and would like to continue to be full code. The patient understands that this means for chest compressions , intubation, pressors, and all measures involved with CPR. CODE STATUS: Full code Time spent with advanced care planning: Greater than 16 minutes Jennifer Richards DO Jul 29, 2017 12:55
--- NOTE | 2017-07-29 13:16 | PCM.PROC ---
Procedure Note Date of Service: Jul 29, 2017 Procedure Details: Procedure: Osteopathic Manipulative Treatment Subjective: Patient is a 46-year-old female who presented to the emergency room with a complaint of right lower quadrant pain and lethargy. The patient was found to have an elevated potassium of 7.6 and a creatinine of 12.5. The patient states that her right lower quadrant pain has been present for the last several days describing the pain as a 6 out of 10 and describes it as a sharp deep muscle type pain. Patient states that the pain does not worsen or improve with walking or palpation but is more of a sharp pain that waxes and wanes. Risks and benefits of OMT were explained to the patient and verbal consent obtained. Osteopathic Structural Exam: Lumbars:L1-L3 NRrSl Abdomen: Celiac ganglia, superior mesenteric, inferior mesenteric ganglia restricted Pelvis: Right pubic symphysis tender point Lower extremities: Right psoas tender point Patient responded well to treatment. The patient stated that her pain significantly improved status post treatment. The patient's pain is most like is secondary to visceral somatic response from the intestine secondary to celiac ganglia/ superior mesenteric ganglia/intermesenteric ganglia constriction. 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 Osteopathic treatment modalities used: Myofascial release, BLT, and soft tissue technique Jennifer Richards DO Jul 29, 2017 13:16
--- NOTE | 2017-07-29 15:53 | NUR ---
discharge assumed care of patient at 1315. discharge orders noted. medicated x 1 with po percoset with effective results. tele dc'd. saline lock in right hand dc'd, canula intact. pressure held to site and 2x2 c/d/i. patient given all dc instructions verbally and in writing and states understanding. given hard copy of prescription for percoset. states understanding regarding all dc instructions and follow up appointments. patient dc'd via wheelchair with lumber material handler to front where friend waiting to give patient a ride home. patient dc'd to home in stable condition. Addendum: 07/29/17 at 1611 by DEMETRICE JAIN RN notified after patient dc'd to home per lumber material handler bernie that when rolling patient down the harp toward the front of the floor to take patient out front for ride that patient noted that 2x2 where IV site had been had blood on dressing. per lumber material handler report 2x2 dc'd per patient and new 2x2 placed per lumber material handler per patient request. lumber material handler reports no bleeding when new 2x2 placed and that 2x2 c/d/i when patient out front getting into vehicle to be driven home. called patient at home at 1605 to follow up regarding blood from old IV site. patient states "oh it's totally fine, there was no blood at all after and in fact I just took off the dressing and it's fine". patient states "i am great and glad to be home".
--- NOTE | 2017-07-29 15:59 | PCM.DC.MED ---
Discharge Summary Date of Service Jul 29, 2017 Dates of Hospitalization Date of Hospital Admission Jul 28, 2017 at 16:19 Date of Discharge: Jul 29, 2017 Providers: Admitting Physician: Jennifer Richards DO Primary Care Physician: Alfredito Urias MD Attending Physician: Jennifer Richards DO Diagnosis at Time of Discharge Diagnosis at Time of Discharge Acute RLQ abdominal pain Acute Hyperkalemia Bilateral nephrectomy secondary to Polycystic kidney disease Macrocytic anemia Allergic rhinitis Hx of Migraines History of obstructive sleep apnea GERD Chronic Arthritis History of Depression/Anxiety Chronic back pain secondary to DDD Consultations Nephrology: Dr. Ac Procedures XRay, CTs & MRIs CT KUB IMPRESSION: 1. Postsurgical changes redemonstrated status post bilateral nephrectomies. No mass lesions or fluid collections demonstrated in the surgical beds. 2. Numerous hepatic cysts redemonstrated likely related to patient's history of polycystic kidney disease. 3. Increase in size of a cystic lesion in the region of the cervix. Further evaluation be obtained with pelvic MRI if clinically indicated. Dictated by: Oliverio Anguiano M.D. on 07/28/2017 at 15:12 Approved by: Oliverio Anguiano M.D. on 07/28/2017 at 15:17 Brief History Zohreh Cuellar, 46 yo, female with a history of bilateral nephrectomy secondary to polycystic kidney disease, dialysis, and migraines who presented with a one- week history of malaise with associated abdominal pain. In the ED the patient was found to have elevated BUN/creatinine, as well as potassium of 7.6. Patient was subsequently loaded with sodium bicarbonate, calcium gluconate, insulin/dextrose, emergent dialysis was also arrange for the patient upon hospital admission. Morning labs noted that the patient's potassium was 5.1 the patient received 1 dose of Kayexalate prior to discharge from hospital. The patient's abdominal pain was addressed in this visit, however no acute cause to her pain could be found at this time. 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 It was decided that the best imaging modality in her case would be a PET CT. The patient's pain has not been overbearing while in the hospital, and for this reason she may be followed up as an outpatient for further workup. Hospital Course Patient is a 46 year old female with a hx of HTN and bilateral nephrectomies on HD who presents to the ED complaining of malaise onset one week ago associated with nausea/vomiting, 6/10 RLQ abdominal pain, chills. Acute RLQ abdominal pain, POA, active Possibly secondary to history of diarrhea, patient states that appendectomy completed in 2014 showed cancerous changes without local invasion. Previous colonoscopy 5-10 years ago per patient history, no findings per patient CT KUB shows cystic lesion in the region of the cervix, increased in size from previous study, radiology suggest follow-up MRI however with her bilateral nephrectomy it is not recommended due to overexposure contrast dye so a PET CT scan would be recommended in this particular case. Abdomen minor tenderness to palpation, currently no signs of infection - TSH within normal limits - Patient received hydromorphone in the emergency department for pain, states that pain relieved from 6/10 to 4/10 - Patient provided with oxycodone for pain management until seen by primary care - Patient's pain decreased with OMT on 07/29/17 Acute Hyperkalemia, POA, resolved - Potassium on admission 7.6 - Pt recieved Sodium bicarb, Calcium gluconate, and Insulin/dextrose in the ED followed by Emergent dialyis on the floor. - Repeat potassium shows 5.1 Bilateral nephrectomy secondary to Polycystic kidney disease - BUN/Creatinine reflective of anephric status - Dialysis completed on 07/28 - Last dialysis completed 07/25 - continue sevelamer for phosphate binding - Continue Cinacalcet for Ca2+ binding Macrocytic anemia, likely chronic, active Secondary to anephric status - Vit D/B12 levels ordered but not resulted Allergic rhinitis, present on admission, active - Continue fluticasone Hx of Migraines -Fioricet for pain PRN History of obstructive sleep apnea - Patient states that she does not use CPAP at home - Counseled regarding possible effects of sleep apnea - Encouraged patient to consider further treatment as an outpatient GERD - Continue home omeprazole Chronic Arthritis - Continue Ibuprofen PRN History of Depression/Anxiety - Continue venlafaxine - Continue bupropion Chronic back pain secondary to DDD, stable - Continue Gabapentin - Patient states that she recently discontinued opioid treatment for this condition - Pain currently managed with physical therapy and ibuprofen as needed Exam Vital Signs (Last) Date Time Temp Pulse Resp B/P Pulse Ox O2 Delivery O2 Flow Rate FiO2 07/29/17 08:56 93 07/29/17 07:50 36.6 16 120/87 97 Room Air Exam General: No acute distress, well-developed, well-nourished Head: Normocephalic, atraumatic. External ears without defect. Eyes: Pupils equal, round, and reactive to light and accommodation. Anicteric sclerae, moist conjunctivae. Neck: Normal range of motion, no lymphadenopathy noted Cardiovascular: Regular rate and rhythm with no murmurs, rubs, or gallops appreciated Pulmonary: Clear to auscultation bilaterally with no crackles, wheezes, or rhonchi. Normal respiratory effort with no use of accessory muscles. Abdomen: Bowel tones present. Soft, nondistended, obese, minor tenderness to palpation of the CVA region as well as the right lower quadrant medial to the ASIS, Extremities: No clubbing, cyanosis, edema, left arm fistula present with palpable thrill Skin: Normal temperature, turgor, and texture; no rash, ulcers, or subcutaneous nodules appreciated. Neurological: Cranial nerves grossly intact. Reflexes, coordination, and sensory function within normal limits. Normal muscle strength, tone, and bulk. Psychiatric: Normal mood and affect. Alert and oriented to person, place, and time Test 07/28/17 13:59 07/28/17 18:19 07/29/17 07:10 Neutrophils (%) (Auto) 68.4% (40-74) Lymphocytes (%) (Auto) 22.8% (14-46) Monocytes (%) (Auto) 6.7% (4-12) Eosinophils (%) (Auto) 1.5% (0-5) Basophils (%) (Auto) 0.3% (0-3) Prothrombin Time 10.0sec (8.1-12.5) Prothromb Time International Ratio 0.94ratio Lactic Acid Level 1.4mmol/L (0.4-2.0) Magnesium Level 2.0mg/dL (1.6-2.6) Lipase 67U/L (13-60) Thyroid Stimulating Hormone (TSH) 4.110uIU/mL (0.450-4.500) Free Thyroxine 0.80ng/dL (0.82-1.77) White Blood Count 6.4th/mm3 (3.8-10.1) Red Blood Count 3.62mil/mm3 (3.90-5.20) Hemoglobin 11.5g/dL (12.0-15.6) Hematocrit 36.9% (35.0-46.0) Mean Corpuscular Volume 101.9fL (81-100) Mean Corpuscular Hemoglobin 31.8pg (27.0-35.0) Mean Corpuscular Hemoglobin Concent 31.2% (32.0-37.0) Red Cell Distribution Width 15.6% (12.3-15.4) Platelet Count 161bil/L (150-400) Sodium Level 138mEq/L (134-144) Potassium Level 5.1mEq/L (3.5-5.2) Chloride Level 94mEq/L (97-108) Carbon Dioxide Level 25mmol/L (18-29) Blood Urea Nitrogen 25mg/dL (6-24) Creatinine 6.10mg/dL (0.57-1.00) Estimat Glomerular Filtration Rate 11mL/min (>59) Glucose Level 89mg/dL (60-99) Calcium Level 8.8mg/dL (8.5-10.1) Total Bilirubin 0.2mg/dL (0.0-1.2) Aspartate Amino Transf (AST/SGOT) 18U/L (0-50) Alanine Aminotransferase (ALT/SGPT) 20U/L (0-32) Alkaline Phosphatase 135U/L (25-150) Total Protein 6.7g/dL (6.4-8.4) Albumin 4.3g/dL (3.4-5.0) Discharge Medications Discharge Medications Bupropion ER (Wellbutrin SR) 150 Mg Tablet.er 150 MG PO QAM (Reported) Cholecalciferol (Vitamin D3) (Vitamin D3) 2,000 Unit Tablet 4,000 UNIT PO QAM ( Reported) Cinacalcet HCl (Sensipar) 60 Mg Tablet 60 MG PO HS (Reported) Gabapentin (Gabapentin) 300 Mg Capsule 300 MG PO HS (Reported) Omeprazole (Omeprazole) 20 Mg Capsule.dr 20 MG PO QAM (Reported) Pramipexole Dihydrochloride (Mirapex) 0.125 Mg Tablet 0.125 MG PO HS (Reported) Sevelamer Carbonate (Renvela) 800 Mg Tablet 2,400 MG PO TIDAC (Reported) Venlafaxine ER (Venlafaxine ER) 150 Mg Cap.er.24h 150 MG PO QAM (Reported) As needed Aspirin/Acetaminophen/Caffeine (Xwpgqws-Mbbwpbroovgnh-Dajp Tab) 250 Mg-250 Mg- 65 Mg Tablet 2 EACH PO Q6H PRN PRN MIGRAINES (Reported) Fluticasone Propionate (Fluticasone Propionate Nasal) 16 Gm [place].susp 1 SPRAY NS BID PRN PRN Secretion Control (Reported) Ibuprofen (Ibuprofen) 400 Mg Tablet 400 MG PO QID PRN PRN For Pain Prescribed by: AJAY TRACY MD Methyl Salicylate/Menthol ([place]) 99.2 Gm Oint...g. 1 APPLIC TP BID PRN PRN SHOULDER PAIN (Reported) Ondansetron (Zofran) 8 Mg Tablet 8 MG PO Q8H PRN PRN For Nausea (Reported) oxyCODONE-Acetaminophen 5-325 mg (oxyCODONE-Acetaminophen 5-325 mg) 1 Each Tablet 1-2 TAB PO Q6H PRN PRN For Pain Prescribed by: FELICE PAUL, DO Additional med instructions Please take medications as previously prescribed. In addition, we have also prescribed oxycodone for abdominal pain as needed. You may take up to 10mg every 6 hours as needed for pain. Please use sparingly. Followup Plan Disposition: Home Follow-up plan Follow up with primary care as soon as possible. We would also like you to follow up with gynecology for further workup of the pericervical cystic lesion. Continue to follow up with nephrology for dialysis as previously scheduled. Discharge Diet: No restrictions Discharge Activity: No restrictions Patient Instructions You were admitted to the hospital with concern for your potassium level which was adequately corrected. You have also been experiencing RLQ abdominal pain which we were unable to discover the cause for. Based on your history of appendectomy with carcinoma we would like you to follow up closely with your primary care doctor who may refer you for a PET CT study to rule out any masses in this region. Based on my discussion with radiology we believe this to be the best visualization modality for your situation. Please take medications as described above. Please attend dialysis sessions as scheduled to avoid electrolyte imbalances. Follow-up Provider: Alfredito Urias MD Follow-up with PCP in: 1 week [facility] Follow-up in: 2 weeks Time spent Greater than 35 minutes spent on documentation and coordination of discharge. Attending Statement The patient was seen and examined together with Dr. Paul on 07/29/17 and I have added additional information to the note above. copies to: Alfredito Urias MD; [facility] Felice Paul DO Jul 29, 2017 15:59 Jennifer Richards DO Jul 30, 2017 17:20 Felice Paul DO Jul 29, 2017 15:59
[2017-07-30 02:09] LABS: Vitamin D, 25-Hydroxy 48.2 ng/mL (30.0-100.0)
== END 2017-07-29 14:45 | disposition home or self-care (01) | DRG 640 ==
LOC: SED 13:13 → PCC 16:19
PROVIDERS: ADMIT Neuromusculoskeletal Medicine & OMM; ATTEND Neuromusculoskeletal Medicine & OMM
PROC: 5A1D00Z (ICD-10-PCS; principal; 2017-07-28)
PROC: 7W0 Osteopathic, Anatomical Regions, Treatment (ICD-10-PCS; 2017-07-29)
PROC: 7W05X1Z Osteopathic Treatment of Pelvis using Fascial Release (ICD-10-PCS; 2017-07-29)
PROC: 7W03X1Z Osteopathic Treatment of Lumbar Region using Fascial Release (ICD-10-PCS; 2017-07-29)
PROC: 7W06X1Z Osteopathic Treatment of Lower Extremities using Fascial Release (ICD-10-PCS; 2017-07-29)
DX: E87.5 Hyperkalemia (principal); N18.6 End stage renal disease; I13.11 Hypertensive heart and chronic kidney disease without heart failure, with stage 5 chronic kidney disease, or end stage renal disease; Q61.2 Polycystic kidney, adult type; G43.909 Migraine, unspecified, not intractable, without status migrainosus; K21.9 Gastro-esophageal reflux disease without esophagitis; J30.9 Allergic rhinitis, unspecified; F41.8 Other specified anxiety disorders; D53.9 Nutritional anemia, unspecified; M51.36 Other intervertebral disc degeneration, lumbar region; Z99.2 Dependence on renal dialysis